=== PATIENT | female | born 1960 | race Caucasian/White ===

== ENCOUNTER 2016-07-05 18:44 | Emergency (ER) | payer BC ==
[2016-07-05] MEDS ORDERED: NS 0.9% 1000 ML* 1,000 ML IV ONE (19:47)
[2016-07-05 20:13] LABS: Hematocrit 43 % (35-47); Hemoglobin 13.8 g/dl (12.0-16.0); Mean Corpuscular HGB Conc 32 g/dl (31-36); Mean Corpuscular Hemoglobin 26 pg (27-31); Mean Corpuscular Volume 82 fL (80-97); Mean Platelet Volume 8 um3 (7.4-10.4); Red Blood Count 5.22 10^6/ul (4.0-5.4); Red Cell Distribution Width 15 % (10.5-15); White Blood Count 8.7 10^3/ul (3.5-10.8)
[2016-07-05 20:28] LABS: BUN/Creatinine Ratio 23.3 (8-20); Calcium 9.9 mg/dL (8.6-10.3); EGFR African American 132.1 (>60); EGFR Non-African American 102.7 (>60); Potassium 3.6 mmol/L (3.5-5.0)
[2016-07-05 22:00] LABS: Urine Bilirubin Negative (Negative); Urine Glucose 1+(50 mg/dL) (Negative); Urine Nitrite Negative (Negative)
--- NOTE | 2016-07-05 22:39 | ED ---
Falguni Elaine Claudia, scribed for Gavin Cano MD on 07/05/16 at 1947 . HPI Diabetic - HPI Summary HPI Summary: 56 year old female presents to the ED with low blood glucose levels. PT notes sudden onset at about 1800 pm today. Pt notes she was 2-3 hours into work when she began feeling lightheaded with some skin diaphoresis, stiff neck and VÁZQUEZ. Pt notes that she took her blood sugar at that time and recorded it as 66. Pt then ate some jello with little alleviation of her Sx. Pt then decided to come to the ED. Upon arrival to ED pt blood glucose was recorded at about 80 and pt notes that she is feeling improved upon arrival with only mild lightheadedness which is beginning to resolve. She notes that she ate a sandwich today around 1400 before going to work. Pt denies any recent changes to her DM Rx. - History Of Current Complaint Chief Complaint: EDDiabeticProb Time Seen by Provider: 07/05/16 19:39 Hx Obtained From: Patient Onset/Duration: Sudden Onset - 17:45, Still Present Timing: Constant Related History: DM II - Allergies/Home Medications Allergies/Adverse Reactions: Allergies Allergy/AdvReac Type Severity Reaction Status Date / Time No Known Allergies Allergy Verified 03/11/16 16:20 PMH/Surg Hx/FS Hx/Imm Hx Previously Healthy: Yes Endocrine/Hematology History: Reports: Hx Anticoagulant Therapy - 325mg asa daily, Hx Diabetes - niddm Cardiovascular History: Reports: Hx Hypertension Denies: Hx Pacemaker/ICD Respiratory History: Denies: Hx Asthma, Hx Chronic Obstructive Pulmonary Disease (COPD) History: Denies: Hx Dialysis, Hx Renal Disease Sensory History: Reports: Hx Contacts or Glasses Denies: Hx Hearing Aid Opthamlomology History: Reports: Hx Contacts or Glasses Neurological History: Reports: Other Neuro Impairments/Disorders - dizziness Denies: Hx Dementia, Hx Seizures Psychiatric History: Denies: Hx Panic Disorder, Hx Substance Abuse - Surgical History Surgery Procedure, Year, and Place: cardiac stents x2- APPROVED BY DR LYLES FOR THIS MRI OF BRAIN IN NORMAL MODE ON 03/22/16- PT HAS NO INFO ON THE STENTS, IF WE EVER NEED TO SCAN HER IN THE FUTURE WE NEED THE INFORMATION. PT BELIEVES THEY WERE DONE AT [facility] 7 OR 8 YRS AGO - Immunization History Date of Influenza Vaccine: 2014 Infectious Disease History: No Infectious Disease History: Denies: Hx Clostridium Difficile, Hx Hepatitis, Hx Human Immunodeficiency Virus (HIV), Hx Shingles, Hx Tuberculosis, Traveled Outside the [place] in Last 30 Days - Family History Known Family History: Positive: Cardiac Disease, Hypertension, Diabetes - Social History Occupation: Employed Full-time Lives: With Family Alcohol Use: None Substance Use Type: Reports: None Smoking Status (MU): Current Every Day Smoker Review of Systems Constitutional: Negative Eyes: Negative ENT: Negative Cardiovascular: Negative Respiratory: Negative Gastrointestinal: Negative Positive: no symptoms reported. Negative: burning, dysuria Musculoskeletal: Negative Skin: Negative Neurological: Other - lightheadedness Psychological: Normal All Other Systems Reviewed And Are Negative: Yes Physical Exam Triage Information Reviewed: Yes Vital Signs On Initial Exam: Initial Vitals Temp Pulse Resp BP Pulse Ox 98.0 F 90 18 165/84 98 07/05/16 18:54 07/05/16 18:54 07/05/16 18:54 07/05/16 18:54 07/05/16 18:54 Vital Signs Reviewed: Yes Appearance: Positive: Well-Appearing, No Pain Distress Skin: Positive: Warm, Skin Color Reflects Adequate Perfusion, Dry Head/Face: Positive: Normal Head/Face Inspection Eyes: Positive: Normal Respiratory/Lung Sounds: Positive: Clear to Auscultation, Breath Sounds Present Cardiovascular: Positive: RRR Abdomen Description: Positive: Nontender, Soft Musculoskeletal: Positive: Normal Neurological: Positive: Normal, Sensory/Motor Intact Psychiatric: Positive: Normal, Affect/Mood Appropriate Diagnostics - Vital Signs Vital Signs Temp Pulse Resp BP Pulse Ox 07/05/16 18:54 98.0 F 90 18 165/84 98 - Laboratory Lab Results: Lab Results 07/05/16 07/05/16 07/05/16 Range/Units 20:05 20:05 21:44 WBC 8.7 (3.5-10.8) 10^3/ul RBC 5.22 (4.0-5.4) 10^6/ul Hgb 13.8 (12.0-16.0) g/dl Hct 43 (35-47) % MCV 82 (80-97) fL MCH 26 L (27-31) pg MCHC 32 (31-36) g/dl RDW 15 (10.5-15) % Plt Count 306 (150-450) 10^3/ul MPV 8 (7.4-10.4) um3 Sodium 138 (133-145) mmol/L Potassium 3.6 (3.5-5.0) mmol/L Chloride 104 (101-111) mmol/L Carbon Dioxide 25 (22-32) mmol/L Anion Gap 9 (2-11) mmol/L BUN 14 (6-24) mg/dL Creatinine 0.60 (0.51-0.95) mg/dL Est GFR ( Amer) 132.1 (>60) Est GFR (Non-Af Amer) 102.7 (>60) BUN/Creatinine Ratio 23.3 H (8-20) Glucose 123 H (70-100) mg/dL Calcium 9.9 (8.6-10.3) mg/dL Urine Color Straw Urine Appearance Clear Urine pH 5.0 (5-9) Ur Specific Hutchins 1.011 (1.010-1.030) Urine Protein Negative (Negative) Urine Ketones Negative (Negative) Urine Blood Negative (Negative) Urine Nitrate Negative (Negative) Urine Bilirubin Negative (Negative) Urine Urobilinogen Negative (Negative) Ur Leukocyte Esterase Negative (Negative) Urine Glucose 1+(50 mg/dl) H (Negative) Result Diagrams: 07/05/16 20:05 07/05/16 20:05 Lab Statement: Any lab studies that have been ordered have been reviewed, and results considered in the medical decision making process. Diabetic Course/Dx - Diagnoses Differential Dx: Hypoglycemia, Sepsis Provider Diagnoses: Hypoglycemia Discharge - Discharge Plan Condition: Improved Disposition: HOME Patient Education Materials: Diabetic Hypoglycemia (ED) Referrals: Sandrine Meléndez MD [Primary Care Provider] - 3 Days The documentation as recorded by the Falguni rose Claudia accurately reflects the service I personally performed and the decisions made by , Gavin Cano MD.
[2016-07-05 23:17] VITALS: BP 159/75
== END 2016-07-05 22:40 | disposition home or self-care (01) ==
LOC: ED 18:44
DX: E11.649 Type 2 diabetes mellitus with hypoglycemia without coma (principal); Z79.01 Long term (current) use of anticoagulants; F17.210 Nicotine dependence, cigarettes, uncomplicated
CPT/HCPCS: 36415; 80048; 81003; 85027; 99283

== ENCOUNTER → 2017-03-04 08:03 | Emergency (ER) | payer BC ==
[~2017-03-04 08:03] MED LIST: Iodixanol* (CONTRAST) 320 MG/ML 100 ML SDV IV ONE; Iohexol 300* (CONTRAST) 10 ML SDV IV ONE; Metoclopramide IV* 5 MG/ML 2 ML VIAL IV ONE; Morphine INJ* 10 MG/ML 1 ML CARPUJECT IV ONE; NS 0.9% 1000 ML* 1,000 ML IV ONE
[2017-03-04 09:28] LABS: Hematocrit 46 % (35-47); Hemoglobin 15.4 g/dl (12.0-16.0); Mean Corpuscular HGB Conc 34 g/dl (31-36); Mean Corpuscular Hemoglobin 28 pg (27-31); Mean Corpuscular Volume 83 fL (80-97); Mean Platelet Volume 8 um3 (7.4-10.4); Red Cell Distribution Width 15 % (10.5-15); White Blood Count 6.4 10^3/ul (3.5-10.8)
--- NOTE | 2017-03-04 09:36 | RAD ---
INDICATION: Chest pain COMPARISON: March 21, 2016 TECHNIQUE: PA and lateral dual-energy views were obtained. FINDINGS: Bones/Soft Tissues: There are no acute bony findings. Cardiomediastinal: The cardiomediastinal silhouette is normal. Lungs: There are no infiltrates. Pleura: There are no pleural effusions. Other: None IMPRESSION: NO ACTIVE DISEASE.
[2017-03-04 09:48] LABS: Albumin 4.3 g/dL (3.2-5.2); C Reactive Protein 11.6 mg/L (< 5.00); Calcium 9.5 mg/dL (8.6-10.3); EGFR African American 145.5 (>60); EGFR Non-African American 113.1 (>60); Globulin 3.3 g/dL (2-4); Potassium 3.7 mmol/L (3.5-5.0); Total Bilirubin 0.5 mg/dL (0.2-1.0); Total Protein 7.6 g/dL (6.4-8.9)
[2017-03-04 11:24] LABS: Urine Bacteria Absent (Absent); Urine Bilirubin Negative (Negative); Urine Glucose 1+(50 mg/dL) (Negative); Urine Nitrite Negative (Negative)
--- NOTE | 2017-03-04 12:07 | RAD ---
INDICATION: Abdominal pain. COMPARISON: There are no prior studies available for comparison. TECHNIQUE: A CT scan of the abdomen and pelvis was performed without intravenous or and with oral contrast. Contiguous axial sections were obtained from the lung bases through the symphysis pubis. Images were reconstructed in the coronal and sagittal planes. FINDINGS: There is mild dependent bilateral lower lobe subsegmental atelectasis. No pleural effusion is present. The liver and spleen are normal in size. The liver is decreased in attenuation most consistent with fatty infiltration. No significant focal abnormality is seen on this noncontrast study. No calcified gallstones are present. The pancreas appears to be within normal limits. The adrenal glands and kidneys are normal in size. No renal calculi or hydronephrosis is seen. The abdominal aorta is normal in caliber. There is moderate calcific plaque present. Incidental note is made of a retroaortic left renal vein. No significant enlarged retroperitoneal lymph nodes are seen. The stomach, small and large bowel appear nondistended. The appendix is within normal limits. There is no evidence for diverticulitis or colitis. The uterus is anteverted and normal in size. No free intraperitoneal air or fluid is seen. No significant focal osseous abnormality is seen. IMPRESSION: 1. NO EVIDENCE FOR ACUTE FINDING OR CAUSE FOR THE PATIENT'S ABDOMINAL PAIN IS SEEN. 2. HEPATIC STEATOSIS.
[2017-03-04 13:07] VITALS: BP 142/61
--- NOTE | 2017-03-04 13:17 | ED ---
Niles Elaine Angela, scribed for Rakesh Villalpando MD on 03/04/17 at 0904 . Abdominal Pain/Female - HPI Summary HPI Summary: This pt is a 57 y/o female [place] [facility] [place] [facility] since this morning at 0500. Pt's pain did not wake up pt from sleep. She notes associated nausea with dry heaving and heart burn in the lower abd. Pt rates her pain 8 out of 10 in severity. Pt describes her pain as "light pain" and is unable to describe more. She notes that this is the first time ever having this pain. Pt denies vomiting, chest pain, SOB, diaphoresis, diarrhea, change in bowel movements, dysuria, hematuria, bloody stools, melena, fever, chills. Pt is a current smoker but denies alcohol use. PMHx: vertigo, diabetes, HTN. Pt is currently on Plavix. - History of Current Complaint Chief Complaint: EDAbdPain Stated Complaint: ABD PAIN Time Seen by Provider: 03/04/17 08:55 Hx Obtained From: Patient Onset/Duration: Lasting Hours Timing: Hours Pain Intensity: 8 Pain Scale Used: 0-10 Numeric Location: Diffuse Radiates: No Character: Other: - "light pain" Aggravating Factor(s): Nothing Alleviating Factor(s): Nothing Associated Signs and Symptoms: Positive: Nausea. Negative: Diaphoresis, Fever, Chest Pain, Back Pain, Constipation, Blood in Stool, Urinary Symptoms, Vomiting , Diarrhea Allergies/Adverse Reactions: Allergies Allergy/AdvReac Type Severity Reaction Status Date / Time Pregabalin [From Lyrica] Allergy Intermediate Tingling Verified 03/04/17 10:32 PMH/Surg Hx/FS Hx/Imm Hx Endocrine/Hematology History: Reports: Hx Anticoagulant Therapy - 325mg asa daily, Hx Diabetes - niddm Cardiovascular History: Reports: Hx Hypertension, Hx Myocardial Infarction - with 2 cardiac stents Denies: Hx Pacemaker/ICD Respiratory History: Denies: Hx Asthma, Hx Chronic Obstructive Pulmonary Disease (COPD) History: Denies: Hx Dialysis, Hx Renal Disease Sensory History: Reports: Hx Contacts or Glasses Denies: Hx Hearing Aid Opthamlomology History: Reports: Hx Contacts or Glasses Neurological History: Reports: Other Neuro Impairments/Disorders - dizziness Denies: Hx Dementia, Hx Seizures Psychiatric History: Denies: Hx Panic Disorder, Hx Substance Abuse - Surgical History Surgery Procedure, Year, and Place: cardiac stents x2- APPROVED BY DR LYLES FOR THIS MRI OF BRAIN IN NORMAL MODE ON 03/22/16- PT HAS NO INFO ON THE STENTS, IF WE EVER NEED TO SCAN HER IN THE FUTURE WE NEED THE INFORMATION. 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 Negative: Vomiting, Diarrhea Negative: burning, dysuria, hematuria, other - bloody stools, melena Neurological: Negative All Other Systems Reviewed And Are Negative: Yes Physical Exam Triage Information Reviewed: Yes Vital Signs On Initial Exam: Initial Vitals Temp Pulse Resp BP Pulse Ox 97.8 F 107 16 184/80 96 03/04/17 08:05 03/04/17 08:05 03/04/17 08:05 03/04/17 08:05 03/04/17 08:05 Vital Signs Reviewed: Yes Appearance: Positive: Well-Appearing Skin: Positive: Warm, Skin Color Reflects Adequate Perfusion Head/Face: Positive: Normal Head/Face Inspection Eyes: Positive: EOMI ENT: Positive: Normal ENT inspection Neck: Positive: Nontender Respiratory/Lung Sounds: Positive: Clear to Auscultation, Breath Sounds Present Cardiovascular: Positive: RRR. Negative: Murmur Abdomen Description: Positive: Other: - tender in left upper quadrant and epigastric area. Musculoskeletal: Positive: Strength/ROM Intact Neurological: Positive: Sensory/Motor Intact, Alert, Oriented to Person Place, Time, CN Intact II-III Psychiatric: Positive: Normal - Pollock Coma Scale Best Eye Response: 4 - Spontaneous Best Motor Response: 6 - Obeys Commands Best Verbal Response: 5 - Oriented Diagnostics - Vital Signs Vital Signs Temp Pulse Resp BP Pulse Ox 03/04/17 08:05 97.8 F 107 16 184/80 96 - Laboratory Result Diagrams: 03/04/17 09:10 03/04/17 09:10 Lab Statement: Any lab studies that have been ordered have been reviewed, and results considered in the medical decision making process. - Radiology Chest XR Xray Interpretation: No Acute Changes - IMPRESSION: No active disease. ED physician has reviewed this radiology report and agrees. Radiology Interpretation Completed By: Radiologist - CT CT abdomen/pelvis CT Interpretation: No Acute Changes - IMPRESSION: 1. No evidence for acute finding or cause for the patient's abdominal pain is seen. 2. Hepatic steatosis. ED physician has reviewed this radiology report and agrees. CT Interpretation Completed By: Radiologist - EKG 1025 Cardiac Rate: NL - 69 bpm EKG Rhythm: Sinus Rhythm EKG Interpretation: Abnormal inferior Q waves. Minimal ST elevation, anterior leads. No STEMI. Re-Evaluation - Re-Evaluation First Eval Re-Evaluation Time: 12:57 Change: Improved Comment: The patient no longer has tenderness to palpation in the epigastric and left upper abdomen. She is hungry and would like to go home. she has no pain at all. Abdominal Pain Fem Course/Dx - Course Course Of Treatment: Pt is a 57 y/o female who presents with abd pain since this morning at 0500. Pt's pain did not wake up pt from sleep. She notes associated nausea with dry heaving and heart burn in the lower abd. Bloodwork, chest XR, CT abdomen/pelvis, and EKG were obtained. In the ED course, pt was given IV fluids, Reglan, and morphine. Chest XR is negative. CT abdomen/pelvis shows 1. No evidence for acute finding or cause for the patient's abdominal pain is seen. 2. Hepatic steatosis. - Diagnoses Provider Diagnoses: Abdominal pain, Hypertension Discharge - Discharge Plan Condition: Good Disposition: HOME Patient Education Materials: Abdominal Pain (ED), Hypertension (ED) Referrals: Sandrine Meléndez MD [Primary Care Provider] - The documentation as recorded by the Niles rose Angela accurately reflects the service I personally performed and the decisions made by , Rakesh Villalpando MD.
== END | disposition home or self-care (01) ==
LOC: ED 08:03
DX: R10.9 Unspecified abdominal pain (principal); I10 Essential (primary) hypertension; N28.89 Other specified disorders of kidney and ureter; R11.0 Nausea; F17.210 Nicotine dependence, cigarettes, uncomplicated
CPT/HCPCS: 36415; 71020; 74176; 80053; 81003; 81015; 83605; 83690; 84484; 84702; 85025; 86140; 93005; 99282; J2270; J2765

== ENCOUNTER 2017-04-28 15:22 | Emergency (ER) | payer BC ==
--- NOTE | 2017-04-28 18:11 | RAD ---
INDICATION: Hypertension COMPARISON: March 04, 2017 TECHNIQUE: An AP portable view obtained at 1800 hours is submitted. FINDINGS: Bones/Soft Tissues: There are no acute bony findings. Cardiomediastinal: The cardiomediastinal silhouette is normal. Lungs: There are no infiltrates. Pleura: There are no pleural effusions. Other: None IMPRESSION: NO ACTIVE DISEASE.
[2017-04-28 18:25] LABS: Hematocrit 44 % (35-47); Hemoglobin 14.7 g/dl (12.0-16.0); Mean Corpuscular HGB Conc 33 g/dl (31-36); Mean Corpuscular Hemoglobin 28 pg (27-31); Mean Corpuscular Volume 83 fL (80-97); Mean Platelet Volume 8 um3 (7.4-10.4); Red Blood Count 5.32 10^6/ul (4.0-5.4); Red Cell Distribution Width 15 % (10.5-15); White Blood Count 6.9 10^3/ul (3.5-10.8)
[2017-04-28 18:39] LABS: Albumin 4.2 g/dL (3.2-5.2); BUN/Creatinine Ratio 24.6 (8-20); Calcium 10.2 mg/dL (8.6-10.3); EGFR African American 139.6 (>60); EGFR Non-African American 108.6 (>60); Globulin 2.9 g/dL (2-4); Magnesium 2.1 mg/dL (1.9-2.7); Potassium 3.9 mmol/L (3.5-5.0); Total Bilirubin 0.5 mg/dL (0.2-1.0); Total Protein 7.1 g/dL (6.4-8.9)
[2017-04-28 18:41] LABS: Troponin I 0.01 ng/mL (<0.04)
[2017-04-28 19:19] LABS: TSH (Thyroid Stimulating Horm) 4.73 mcIU/mL (0.34-5.60)
[2017-04-28] MEDS ORDERED: Meclizine TAB* 12.5 MG PO ONE ×2 (19:27→22:19)
[2017-04-28] MEDS ORDERED: NS 0.9% 1000 ML* 1,000 ML IV ONE (19:27)
--- NOTE | 2017-04-28 20:31 | RAD ---
INDICATION: Dizziness COMPARISON: None TECHNIQUE: Noncontrast axial source images were acquired from the skull base to the vertex. FINDINGS: Ventricles/sulci: The ventricles and cisterns are normal in size and configuration for age. Brain parenchyma: There is no focal parenchymal finding, evidence of intracranial mass, or intracranial mass effect. Intracranial hemorrhage:None. Extra-axial spaces: There are no abnormal extra axial fluid collections or evidence of extra-axial mass. Calvarium: There is no calvarial fracture or other calvarial abnormality. Scalp: There is no evidence of scalp or extracalvarial soft tissue abnormality. Paranasal sinuses/mastoid: The paranasal sinuses and mastoid air cells are clear. Other: None. IMPRESSION: NEGATIVE EXAMINATION
--- NOTE | 2017-04-28 22:28 | ED ---
Teo Elaine Benjamin, scribed for Aditya Mckeon MD on 04/28/17 at 1927 . Dizziness - HPI Summary HPI Summary: 57yo female who has been feeling off balance and nauseous over 8 weeks presents today has her symptoms worsened the past 3 days. Pts BP has also been high last 3 days. Pt reports being off balance and nauseous, in similar fashion last year. Pt has been seen multiple times, with multiple doctors trying to figure her dz. Pt had a MRI taken 1 month ago at [place]. Pt states that her. MRI came back negative. Pt denies any pain. No weakness or numbness anywhere. - History Of Current Complaint Chief Complaint: EDHypertension Stated Complaint: HIGH BLOOD PRESSURE Time Seen by Provider: 04/28/17 18:00 Hx Obtained From: Patient, Family/[employer] Liaison Officer - Onset/Duration: Still Present Timing: Weeks - 8 weeks Severity Initially: Mild Severity Currently: Mild Character: Dizzy - off balance Aggravating Factor(s): Nothing Alleviating Factor(s): Nothing Associated Signs And Symptoms: Positive: Nausea. Negative: Visual Changes Related History: Similar Episode/Dx as - last year - Risk Factors Cardiac Risk Factors: Hypertension - Allergies/Home Medications Allergies/Adverse Reactions: Allergies Allergy/AdvReac Type Severity Reaction Status Date / Time Pregabalin [From Lyrica] Allergy Intermediate Tingling Verified 04/28/17 15:30 PMH/Surg Hx/FS Hx/Imm Hx Endocrine/Hematology History: Reports: Hx Anticoagulant Therapy - 325mg asa daily, Hx Diabetes - niddm Cardiovascular History: Reports: Hx Hypertension, Hx Myocardial Infarction - with 2 cardiac stents Denies: Hx Pacemaker/ICD Respiratory History: Denies: Hx Asthma, Hx Chronic Obstructive Pulmonary Disease (COPD) History: Denies: Hx Dialysis, Hx Renal Disease Sensory History: Reports: Hx Contacts or Glasses Denies: Hx Hearing Aid Opthamlomology History: Reports: Hx Contacts or Glasses Neurological History: Reports: Other Neuro Impairments/Disorders - dizziness Denies: Hx Dementia, Hx Seizures Psychiatric History: Denies: Hx Panic Disorder, Hx Substance Abuse - Surgical History Surgery Procedure, Year, and Place: cardiac stents x2- APPROVED BY DR LYLES FOR THIS MRI OF BRAIN IN NORMAL MODE ON 03/22/16- PT HAS NO INFO ON THE STENTS, IF WE EVER NEED TO SCAN HER IN THE FUTURE WE NEED THE INFORMATION. PT BELIEVES THEY WERE DONE AT [facility] 7 OR 8 YRS AGO - Immunization History Date of Influenza Vaccine: 2013 Infectious Disease History: No Infectious Disease History: Denies: Hx Clostridium Difficile, Hx Hepatitis, Hx Human Immunodeficiency Virus (HIV), Hx Shingles, Hx Tuberculosis, Traveled Outside the [place] in Last 30 Days - Family History Known Family History: Positive: Cardiac Disease, Hypertension, Diabetes, Other - sister: breast [place] - Social History Alcohol Use: None Substance Use Type: Reports: None Smoking Status (MU): Current Every Day Smoker Review of Systems Constitutional: Negative Eyes: Negative ENT: Negative Cardiovascular: Negative Respiratory: Negative Positive: Nausea. Negative: Abdominal Pain Genitourinary: Negative Musculoskeletal: Negative Skin: Negative Neurological: Other - off balance dizziness Negative: Headache Psychological: Normal All Other Systems Reviewed And Are Negative: Yes Physical Exam Triage Information Reviewed: Yes Vital Signs On Initial Exam: Initial Vitals Temp Pulse Resp BP Pulse Ox 98.6 F 98 20 204/85 98 04/28/17 15:31 04/28/17 15:31 04/28/17 15:31 04/28/17 15:31 04/28/17 15:31 Vital Signs Reviewed: Yes Appearance: Positive: Well-Appearing, No Pain Distress, Well-Nourished Skin: Positive: Warm, Skin Color Reflects Adequate Perfusion, Dry Head/Face: Positive: Normal Head/Face Inspection Eyes: Positive: SAW, Other: - Left nystagmus. None on the right. ENT: Positive: Normal ENT inspection Neck: Positive: Supple, Nontender Respiratory/Lung Sounds: Positive: Clear to Auscultation, Breath Sounds Present Cardiovascular: Positive: RRR Abdomen Description: Positive: Nontender, Soft Bowel Sounds: Positive: Present Musculoskeletal: Positive: Strength/ROM Intact Neurological: Positive: Sensory/Motor Intact, Alert, Oriented to Person Place, Time, Other - Pt felt dizzy when sitting up, also with eye movement. - [place] Coma Scale Coma Scale Total: 15 Diagnostics - Vital Signs Vital Signs Temp Pulse Resp BP Pulse Ox 04/28/17 19:13 72 17 126/64 97 04/28/17 18:00 66 16 133/63 96 04/28/17 17:34 77 95 04/28/17 17:33 172/79 04/28/17 17:19 98 F 64 16 159/64 98 04/28/17 15:31 98.6 F 98 20 204/85 98 - Laboratory Lab Results: Lab Results 04/28/17 04/28/17 04/28/17 Range/Units 18:16 18:16 18:16 WBC 6.9 (3.5-10.8) 10^3/ul RBC 5.32 (4.0-5.4) 10^6/ul Hgb 14.7 (12.0-16.0) g/dl Hct 44 (35-47) % MCV 83 (80-97) fL MCH 28 (27-31) pg MCHC 33 (31-36) g/dl RDW 15 (10.5-15) % Plt Count 314 (150-450) 10^3/ul MPV 8 (7.4-10.4) um3 Neut % (Auto) 52.9 (38-83) % Lymph % (Auto) 35.6 (25-47) % Lake % (Auto) 7.4 (1-9) % Eos % (Auto) 2.7 (0-6) % Baso % (Auto) 1.4 (0-2) % Absolute Neuts (auto) 3.6 (1.5-7.7) 10^3/ul Absolute Lymphs (auto) 2.4 (1.0-4.8) 10^3/ul Absolute Monos (auto) 0.5 (0-0.8) 10^3/ul Absolute Eos (auto) 0.2 (0-0.6) 10^3/ul Absolute Basos (auto) 0.1 (0-0.2) 10^3/ul Absolute Nucleated RBC 0 10^3/ul Nucleated RBC % 0.1 INR (Anticoag Therapy) 0.99 (0.77-1.02) APTT 32.9 (26.0-36.3) seconds Sodium (133-145) mmol/L Potassium (3.5-5.0) mmol/L Chloride (101-111) mmol/L Carbon Dioxide (22-32) mmol/L Anion Gap (2-11) mmol/L BUN (6-24) mg/dL Creatinine (0.51-0.95) mg/dL Est GFR ( Amer) (>60) Est GFR (Non-Af Amer) (>60) BUN/Creatinine Ratio (8-20) Glucose (70-100) mg/dL Calcium (8.6-10.3) mg/dL Magnesium (1.9-2.7) mg/dL Total Bilirubin (0.2-1.0) mg/dL AST (13-39) U/L ALT (7-52) U/L Alkaline Phosphatase (34-104) U/L Troponin I (<0.04) ng/mL B-Natriuretic Peptide 84 ( - 100) pg/mL Total Protein (6.4-8.9) g/dL Albumin (3.2-5.2) g/dL Globulin (2-4) g/dL Albumin/Globulin Ratio (1-3) TSH (0.34-5.60) mcIU/mL 04/28/ Range/Units 18:16 WBC (3.5-10.8) 10^3/ul RBC (4.0-5.4) 10^6/ul Hgb (12.0-16.0) g/dl Hct (35-47) % MCV (80-97) fL MCH (27-31) pg MCHC (31-36) g/dl RDW (10.5-15) % Plt Count (150-450) 10^3/ul MPV (7.4-10.4) um3 Neut % (Auto) (38-83) % Lymph % (Auto) (25-47) % Lake % (Auto) (1-9) % Eos % (Auto) (0-6) % Baso % (Auto) (0-2) % Absolute Neuts (auto) (1.5-7.7) 10^3/ul Absolute Lymphs (auto) (1.0-4.8) 10^3/ul Absolute Monos (auto) (0-0.8) 10^3/ul Absolute Eos (auto) (0-0.6) 10^3/ul Absolute Basos (auto) (0-0.2) 10^3/ul Absolute Nucleated RBC 10^3/ul Nucleated RBC % INR (Anticoag Therapy) (0.77-1.02) APTT (26.0-36.3) seconds Sodium 137 (133-145) mmol/L Potassium 3.9 (3.5-5.0) mmol/L Chloride 103 (101-111) mmol/L Carbon Dioxide 26 (22-32) mmol/L Anion Gap 8 (2-11) mmol/L BUN 14 (6-24) mg/dL Creatinine 0.57 (0.51-0.95) mg/dL Est GFR ( Amer) 139.6 (>60) Est GFR (Non-Af Amer) 108.6 (>60) BUN/Creatinine Ratio 24.6 H (8-20) Glucose 141 H (70-100) mg/dL Calcium 10.2 (8.6-10.3) mg/dL Magnesium 2.1 (1.9-2.7) mg/dL Total Bilirubin 0.50 (0.2-1.0) mg/dL AST 14 (13-39) U/L ALT 14 (7-52) U/L Alkaline Phosphatase 67 (34-104) U/L Troponin I 0.01 (<0.04) ng/mL B-Natriuretic Peptide ( - 100) pg/mL Total Protein 7.1 (6.4-8.9) g/dL Albumin 4.2 (3.2-5.2) g/dL Globulin 2.9 (2-4) g/dL Albumin/Globulin Ratio 1.4 (1-3) TSH 4.73 (0.34-5.60) mcIU/mL Result Diagrams: 04/28/17 18:16 04/28/17 18:16 Lab Statement: Any lab studies that have been ordered have been reviewed, and results considered in the medical decision making process. - Radiology CXR Xray Interpretation: No Acute Changes Radiology Interpretation Completed By: Radiologist - ED physician has reviewed this radiology report and agrees. - CT Brain CT CT Interpretation: No Acute Changes CT Interpretation Completed By: Radiologist - ED physician has reviewed this radiology report and agrees. - EKG 1800. EKG Rhythm: Sinus Rhythm - 62bpm Ectopy: None Dizzy Course/Dx - Course Course Of Treatment: BP noted and advised to follow up with PCP. Allergies noted. Medications reviewed. SX STARTED IN . SHE HAD SIMILAR SX LAST FALL. SHE AND HER HEAT WITH A PELLET STOVE WHICH HAS BEEN CHECKED FOR SAFETY. PATIENT REPORTS HAVING A MRI WITHIN THE LAST MONTH FOR THESE SX. SHE HAS AN APPOINTMENT TOMORROW WITH HER PMD. SOME IMPROVEMENT IN ED AFTER MECLIZINE. F/U PMD TOMORROW SCHEDULED; RETURN IF WORSE. - Diagnoses Provider Diagnoses: Dizziness Discharge - Discharge Plan Condition: Stable Disposition: HOME Prescriptions: Meclizine HCl [Meclizine 25] 25 mg PO Q6H PRN #15 tab PRN Reason: Dizziness Patient Education Materials: Dizziness (ED) Referrals: Sandrine Meléndez MD [Primary Care Provider] - Additional Instructions: FOLLOW UP WITH YOUR DOCTOR. RETURN TO THE EMERGENCY DEPARTMENT FOR ANY WORSENING OF YOUR CONDITION; WEAKNESS , NUMBNESS, WORSENING DIZZINESS, YOU FEEL ILL OR QUESTIONS OR CONCERNS. The documentation as recorded by the Teo rose Benjamin accurately reflects the service I personally performed and the decisions made by me, Aditya Mckeon MD.
[2017-04-28 22:41] VITALS: BP 100/55
== END 2017-04-28 22:51 | disposition home or self-care (01) ==
LOC: ED 15:22
DX: R42 Dizziness and giddiness (principal); R11.0 Nausea; Z79.01 Long term (current) use of anticoagulants; Z86.79 Personal history of other diseases of the circulatory system; F17.210 Nicotine dependence, cigarettes, uncomplicated
CPT/HCPCS: 36415; 70450; 71010; 80053; 83735; 83880; 84443; 84484; 85025; 85610; 85730; 93005; 99284; A9270-GY

== ENCOUNTER 2018-03-31 18:11 | Emergency (ER) | payer BC ==
[2018-03-31 19:08] VITALS: BP 153/80
[2018-03-31] MEDS ORDERED: Amoxicillin PO (*) 500 MG CAP PO ONE (21:20)
[2018-03-31] MEDS ORDERED: HYDROcodone/ACETAMIN 5-325 MG* 1 TAB PO ONE (21:20)
[2018-03-31] MEDS ORDERED: Naproxen TAB* 250 MG PO ONE (21:20)
--- NOTE | 2018-03-31 21:25 | UC ---
[facility] Dental HPI - HPI Summary HPI Summary: 58-year-old female presents with 3 day history of right upper dental pain. Associated with some mild right sided facial swelling. Denies fever, chills, trismus, dysphagia, or discharge. - History of Current Complaint Chief Complaint: UCDentalProblem Stated Complaint: TOOTH ACHE Time Seen by Provider: 03/31/18 20:13 Hx Obtained From: Patient Hx Last Menstrual Period: [employer] Onset/Duration: Gradual Onset, Lasting Days - 3 Severity: Moderate Pain Intensity: 8 Aggravating Factor(s): Chewing Alleviating Factor(s): Nothing - Allergies/Home Medications Allergies/Adverse Reactions: Allergies Allergy/AdvReac Type Severity Reaction Status Date / Time pregabalin [From Lyrica] Allergy Tingling Verified 03/31/18 19:09 Home Medications: Home Medications Aspirin 81 mg CHEW TAB* 81 mg PO DAILY 03/31/18 [History Confirmed 03/31/18] Hydrochlorothiazide TAB* [Hydrodiuril TAB*] 25 mg PO DAILY 03/31/18 [History Confirmed 03/31/18] Metoprolol Tartrate TAB* [Lopressor TAB*] 100 mg PO BID 03/31/18 [History Confirmed 03/31/18] Rosuvastatin (NF) [Crestor (NF)] 40 mg PO BEDTIME 03/31/18 [History Confirmed ] glyBURIDE TAB* [Diabeta TAB*] 10 mg PO 0800,1700 03/31/18 [History Confirmed 07/17] PMH/Surg Hx/FS Hx/Imm Hx Endocrine History: Diabetes, Dyslipidemia Cardiovascular History: Cardiac Disease, Hypertension Other History Of: Anticoagulant Therapy - 325mg asa daily - Surgical History Surgical History: Yes Surgery Procedure, Year, and Place: cardiac stents x2- APPROVED BY DR LYLES FOR THIS MRI OF BRAIN IN NORMAL MODE ON 03/22/16- PT HAS NO INFO ON THE STENTS, IF WE EVER NEED TO SCAN HER IN THE FUTURE WE NEED THE INFORMATION. PT BELIEVES THEY WERE DONE AT [facility] 7 OR 8 YRS AGO - Family History Known Family History: Positive: Cardiac Disease, Hypertension, Diabetes, Other - sister: breast [place] - Social History Occupation: Employed Full-time Lives: With Family Alcohol Use: None Substance Use Type: None Smoking Status (MU): Heavy Every Day Tobacco Smoker Household Exposure Type: Cigarettes - Immunization History Most Recent Influenza Vaccination: 2014 Most Recent Tetanus Shot: Unknown Most Recent Pneumonia Vaccination: Unknown Review of Systems Constitutional: Negative Skin: Negative ENT: Dental Pain Respiratory: Negative Cardiovascular: Negative Is Patient Immunocompromised?: No All Other Systems Reviewed And Are Negative: Yes Physical Exam Triage Information Reviewed: Yes Appearance: Ill-Appearing - Chronically, Pain Distress - Mild discomfort, holding right side of face, Obese Vital Signs: Initial Vital Signs Temp 98.3 F 03/31/18 19:00 Pulse 80 03/31/18 19:00 Resp 16 03/31/18 19:00 BP 153/80 03/31/18 19:00 Pulse Ox 98 03/31/18 19:00 ENT: Positive: Pharynx normal, Dental tenderness - #3, Uvula midline Dental: Positive: Gross Decay/Caries @ - throughout, Other: - Multiple missing teeth Neck: Positive: Supple, Nontender, No Lymphadenopathy Respiratory: Positive: Normal breath sounds, No respiratory distress Cardiovascular: Positive: RRR, No Murmur Neurological: Positive: Alert Skin Exam: Normal Dental Complaint Course/Dx - Course Course Of Treatment: 58 year old female with 3 day history of right upper dental pain. Afebrile. Exam revealed significant dental decay to #3 right upper molar. No obvious abscess. Mild right sided facial swelling. Will start amoxicillin 500 mg TID x 10 days. First dose given in clinic. She was given a naproxen and [place] in clinic for pain and provided a prescription for naproxen for pain management at home. She is to schedule an appointment with dentist at next available appointment. Warning symptoms reviewed. Verbalizes understanding and agrees with POC. She is discharged home with spouse who is driving. - Differential Dx/Diagnosis Differential Diagnosis/Dx: Dental Abscess, Dental Caries, Gingivitis, Odontogenic Pain, Peridontic Disease Provider Diagnoses: Dental pain Discharge - Sign-Out/Discharge Documenting (check all that apply): Patient Departure All imaging exams completed and their final reports reviewed: No Studies - Discharge Plan Condition: Stable Disposition: HOME Prescriptions: Amoxicillin PO (*) [Amoxicillin 500 MG CAP*] 500 mg PO TID #30 cap Naproxen [Naproxen 500 mg tab] 500 mg PO Q12HR #30 tablet Patient Education Materials: Toothache (ED) Referrals: Sandrine Meléndez MD [Primary Care Provider] - Additional Instructions: Start amoxicillin 500 mg three times a day for 10 days. Take naproxen 1 tab every 12 hours as needed for pain. Use a salt water rinse after every time you eat and at bedtime to remove any debris. Apply ice to the affected side of your face for 15-20 minutes 3-4 times a day to help with any swelling. It is important that you make an appointment with a dentist at the next available appointment. Seek immediate medical attention if you develop fever greater than 100.5 F, are unable to open your mouth, have difficulty swallowing, difficulty breathing or any worsening of symptoms. - Billing Disposition and Condition Condition: STABLE Disposition: Home
== END 2018-03-31 21:39 | disposition home or self-care (01) ==
LOC: UCEAST 18:11
DX: K08.89 Other specified disorders of teeth and supporting structures (principal); K02.9 Dental caries, unspecified; R22.0 Localized swelling, mass and lump, head; E11.9 Type 2 diabetes mellitus without complications; E78.5 Hyperlipidemia, unspecified; F17.210 Nicotine dependence, cigarettes, uncomplicated; I10 Essential (primary) hypertension; Z79.899 Other long term (current) drug therapy; Z79.01 Long term (current) use of anticoagulants; Z79.82 Long term (current) use of aspirin; Z88.8 Allergy status to other drugs, medicaments and biological substances; Z79.84 Long term (current) use of oral hypoglycemic drugs; Z95.818 Presence of other cardiac implants and grafts
CPT/HCPCS: 99212; A9270-GY; G0463

== ENCOUNTER 2018-04-15 03:43 | Emergency (ER) | payer BC ==
[2018-04-15] MEDS ORDERED: Penicillin VK TAB* 250 MG PO ONE (03:58)
--- NOTE | 2018-04-15 04:06 | ED ---
Throat Pain/Nasal Congestion - HPI Summary HPI Summary: This patient is a 58 year old presenting to [facility] with a chief complaint of dental pain [employer]PER[employer]ARN[employer]. The pain is on the lower right side of her jaw. The patient states she does not see a dentist and does not know how to find one. - History of Current Complaint Chief Complaint: EDDentalPain Time Seen by Provider: 04/15/18 03:52 Hx Obtained From: Patient - Allergies/Home Medications Allergies/Adverse Reactions: Allergies Allergy/AdvReac Type Severity Reaction Status Date / Time pregabalin [From Lyrica] Allergy Tingling Verified 04/15/18 03:50 PMH/Surg Hx/FS Hx/Imm Hx Endocrine/Hematology History: Reports: Hx Anticoagulant Therapy - 325mg asa daily, Hx Diabetes - DM II Cardiovascular History: Reports: Hx Hypertension, Hx Myocardial Infarction - with 2 cardiac stents Denies: Hx Pacemaker/ICD Respiratory History: Denies: Hx Asthma, Hx Chronic Obstructive Pulmonary Disease (COPD) History: Denies: Hx Dialysis, Hx Renal Disease Sensory History: Reports: Hx Contacts or Glasses Denies: Hx Hearing Aid Opthamlomology History: Reports: Hx Contacts or Glasses Neurological History: Reports: Other Neuro Impairments/Disorders - dizziness Denies: Hx Dementia, Hx Seizures Psychiatric History: Denies: Hx Panic Disorder, Hx Substance Abuse - Cancer History Cancer Type, Location and Year: breast, currently - Surgical History Surgery Procedure, Year, and Place: cardiac stents x2- APPROVED BY DR LYLES FOR THIS MRI OF BRAIN IN NORMAL MODE ON 03/22/16- PT HAS NO INFO ON THE STENTS, IF WE EVER NEED TO SCAN HER IN THE FUTURE WE NEED THE INFORMATION. PT BELIEVES THEY WERE DONE AT [facility] 7 OR 8 YRS AGO - Immunization History Date of Influenza Vaccine: 2013 Infectious Disease History: No Infectious Disease History: Denies: Hx Clostridium Difficile, Hx Hepatitis, Hx Human Immunodeficiency Virus (HIV), Hx Shingles, Hx Tuberculosis, Traveled Outside the [place] in Last 30 Days - Family History Known Family History: Positive: Cardiac Disease, Hypertension, Diabetes, Other - sister: breast [place] - Social History Alcohol Use: None Substance Use Type: Reports: None Smoking Status (MU): Heavy Every Day Tobacco Smoker Review of Systems All Other Systems Reviewed And Are Negative: No Physical Exam - Summary Physical Exam Summary: Appearance: Well-appearing, Well-nourished, lying in bed comfortable Skin: Warm, dry, no obvious rash Eyes: sclera anicteric, no conjunctival pallor ENT: mucous membranes moist. No swelling. Poor dentition. Few teeth remaining. Neck: deferred Respiratory: No signs of respiratory distress Cardiovascular: Appears well perfused, pulses are nml Abdomen: deferred Musculoskeletal: Moving all 4 extremities without obvious discomfort Neurological: Awake and alert, mentation is normal, speech is fluent and appropriate Psychiatric: affect is normal, does not appear anxious or depressed Triage Information Reviewed: Yes Vital Signs On Initial Exam: Initial Vitals Temp Pulse Resp BP Pulse Ox 97.3 F 102 16 175/95 96 04/15/18 03:47 04/15/18 03:47 04/15/18 03:47 04/15/18 03:47 04/15/18 03:47 Vital Signs Reviewed: Yes Diagnostics - Vital Signs Vital Signs Temp Pulse Resp BP Pulse Ox 04/15/18 03:47 97.3 F 102 16 175/95 96 - Laboratory Lab Statement: Any lab studies that have been ordered have been reviewed, and results considered in the medical decision making process. EENT Course/Dx - Diagnoses Provider Diagnoses: Dental abscess Discharge - Sign-Out/Discharge Documenting (check all that apply): Patient Departure - Discharge Plan Condition: Good Disposition: HOME Prescriptions: Penicillin VK TAB* [Penicillin VK 250 mg Tab*] 500 mg PO QID #40 tab Patient Education Materials: Dental Abscess (ED) Referrals: Sandrine Meléndez MD [Primary Care Provider] - Additional Instructions: The antibiotic will tamp down the infection but you really need to see a dentist to have this taken care of definitively. - Billing Disposition and Condition Condition: GOOD Disposition: Home - Attestation Statements Document Initiated by Karey: Yes Documenting Scribe: Honorio Petit Provider For Whom Karey is Documenting (Include Credential): Goldy Sidhu MD Scribe Attestation: I, Honorio Petit, alonzoed for Goldy Sidhu MD on 04/24/18 at 0057. Scribe Documentation Reviewed: Yes Provider Attestation: The documentation as recorded by the Honorio rose accurately reflects the service I personally performed and the decisions made by me, Goldy Sidhu MD
[2018-04-15 04:08] VITALS: BP 0/0
== END 2018-04-15 04:07 | disposition home or self-care (01) ==
LOC: ED 03:43
DX: K08.89 Other specified disorders of teeth and supporting structures (principal); C50.919 Malignant neoplasm of unspecified site of unspecified female breast; I25.2 Old myocardial infarction; I10 Essential (primary) hypertension; Z95.5 Presence of coronary angioplasty implant and graft; Z79.82 Long term (current) use of aspirin; Z88.8 Allergy status to other drugs, medicaments and biological substances; F17.200 Nicotine dependence, unspecified, uncomplicated
CPT/HCPCS: 99282; A9270-GY

== ENCOUNTER 2018-09-05 11:33 | Emergency (ER) | payer BC ==
[2018-09-05 11:42] VITALS: BP 148/79
--- NOTE | 2018-09-05 13:09 | UC ---
Throat Pain/Nasal Jesse HPI - HPI Summary HPI Summary: 58 year old female presents with 1 week history of general malaise, chills, nasal congestion, sore throat, and a productive cough. States she was seen by her PCP 4 days ago and diagnosed with a viral URI but states symptoms are progressively getting worse. Denies ear pain, dysphagia , chest pain, SOB, abdominal pain, N/V/D. 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 Intensity: 0 - Allergies/Home Medications Allergies/Adverse Reactions: Allergies Allergy/AdvReac Type Severity Reaction Status Date / Time pregabalin [From Lyrica] Allergy Tingling Verified 09/05/18 11:42 PMH/Surg Hx/FS Hx/Imm Hx Endocrine History: Diabetes, Dyslipidemia Cardiovascular History: Cardiac Disease, Hypertension Other History Of: Anticoagulant Therapy - 325mg asa daily - Surgical History Surgical History: Yes Surgery Procedure, Year, and Place: cardiac stents x2- APPROVED BY DR LYLES FOR THIS MRI OF BRAIN IN NORMAL MODE ON 03/22/16- PT HAS NO INFO ON THE STENTS, IF WE EVER NEED TO SCAN HER IN THE FUTURE WE NEED THE INFORMATION. PT BELIEVES THEY WERE DONE AT [facility] 7 OR 8 YRS AGO - Family History Known Family History: Positive: Cardiac Disease, Hypertension, Diabetes, Other - sister: breast [place] - Social History Occupation: Employed Full-time Lives: With Family Alcohol Use: None Substance Use Type: None Smoking Status (MU): Heavy Every Day Tobacco Smoker Household Exposure Type: Cigarettes - Immunization History Most Recent Influenza Vaccination: 2014 Most Recent Tetanus Shot: Unknown Most Recent Pneumonia Vaccination: Unknown Review of Systems All Other Systems Reviewed And Are Negative: Yes Constitutional: Negative: Fever, Chills Physical Exam - Summary Physical Exam Summary: GENERAL APPEARANCE: Well developed, well nourished, alert and cooperative, and appears to be in no acute distress. EYES: Conjunctiva clear. No drainage. EARS: External auditory canals and tympanic membranes clear, hearing grossly intact. NOSE: Moderate nasal congestion. No nasal discharge. THROAT: Mild pharyngeal erythema. No tonsilar inflammation, swelling, exudate, or lesions. Uvula midline. NECK: Neck supple, non-tender without lymphadenopathy. CARDIAC: Normal S1 and S2. No S3, S4 or murmurs. Rhythm is regular. There is no peripheral edema, cyanosis or pallor. Extremities are warm and well perfused. Capillary refill is less than 2 seconds. Peripheral pulses intact. LUNGS: Clear to auscultation without rales, rhonchi, wheezing or diminished breath sounds. Non-productive cough. ABDOMEN: Positive bowel sounds. Soft, nondistended, nontender. No guarding or rebound. No masses or hepatosplenomegally. MUSKULOSKELETAL: ROM intact to all extremities. No joint erythema or tenderness. Normal muscular development. Normal gait. SKIN: Skin normal color, texture and turgor with no lesions or eruptions. Triage Information Reviewed: Yes Vital Signs: Initial Vital Signs Temp 99 F 09/05/18 11:39 Pulse 107 09/05/18 11:39 Resp 20 09/05/18 11:39 BP 148/79 09/05/18 11:39 Pulse Ox 98 09/05/18 11:39 Vital Signs Reviewed: Yes Throat Pain/Nasal Course/Dx - Course Course Of Treatment: 58 year old female presents with 1 week history of general malaise, chills, nasal congestion, sore throat, and a productive cough. States she was seen by her PCP 4 days ago and diagnosed with a viral URI but states symptoms are progressively getting worse. Denies ear pain, dysphagia , chest pain, SOB, abdominal pain, N/V/D. Afebrile. VSS. Exam remarkable for moderate nasal congestion, mild pharyngeal erythema without tonsilar swelling or exudate, no cervical lymphadenopathy, clear bilateral breath sounds, and a non-productive cough. Considering the worsening of her symptoms will start her on a course of azithromycin as well as symptomatic care for URI. She is to follow up with her PCP in 3 days for a recheck of her symptoms. Anticipatory guidance and warning symptoms reviewed with patient. Verbalizes understanding and agrees with POC. - Differential Dx/Diagnosis Differential Diagnosis/HQI/PQRI: Influenza, Pharyngitis, Sinusitis, URI Provider Diagnosis: Upper respiratory infection with cough and congestion Discharge - Sign-Out/Discharge Documenting (check all that apply): Patient Departure All imaging exams completed and their final reports reviewed: No Studies - Discharge Plan Condition: Stable Disposition: HOME Prescriptions: Azithromyxin KAYLA (NF) [Z-Kayla (Zithromax) 250 mg tabs #6] 2 tab PO .TODAY, THEN 1 DAILY #6 tab Benzonatate CAP* [Tessalon 100 MG CAP*] 100 mg PO TID PRN #30 cap PRN Reason: Cough Fluticasone NASAL SPRAY 50MCG* [Flonase NASAL SPRAY 50MCG*] 2 spray BOTH NARES DAILY #1 btl Patient Education Materials: Upper Respiratory Infection (ED) Forms: *Work Release Referrals: Sandrine Meléndez MD [Primary Care Provider] - 3 Days Additional Instructions: Your history and exam are consistent with an upper respiratory infection. Considering the worsening of your symptoms we will start you on an antibiotic. Take azithromycin 2 tabs today then 1 tab a day for next 4 days. Drink plenty of fluids. Use a saline rinse kit such as Neti Pot or NeilMed at least twice a day to help thin secretions and promote drainage of the sinuses. Use fluticasone (Flonase) nasal spray 2 sprays each nostril once daily. Take Tessalon Perles 1 cap every 8 hours as needed for cough. Take over the counter acetaminophen (Tylenol) or ibuprofen (Advil, Motrin) according to directions as needed for pain or fever. Use salt water gargles several times a day if you have a sore throat. You may also use Chloraseptic spray or Cepacol lonzenges according to directions which contain a numbing medication and can provide some temporary relief from your sore throat. Follow up with your primary care provider in 3 days for a recheck of your symptoms. Seek immediate medical attention in the emergency room if you have fever greater than 100.5 F despite taking acetaminophen or ibuprofen, have chest pain , difficulty breathing, are unable to swallow, or have any worsening of symptoms. - Billing Disposition and Condition Condition: STABLE Disposition: Home
== END 2018-09-05 13:29 | disposition home or self-care (01) ==
LOC: UCEAST 11:33
DX: J06.9 Acute upper respiratory infection, unspecified (principal); R05 Cough; J34.89 Other specified disorders of nose and nasal sinuses; F17.210 Nicotine dependence, cigarettes, uncomplicated; Z79.82 Long term (current) use of aspirin; Z98.61 Coronary angioplasty status
CPT/HCPCS: 99212; G0463

== ENCOUNTER → 2018-09-07 14:52 | Emergency (ER) | payer BC ==
[2018-09-07 18:14] VITALS: BP 155/78
--- NOTE | 2018-09-08 05:58 | ED ---
Influenza-Like Illness - HPI Summary HPI Summary: Patient is a 58-year-old female who presents emergency department for ongoing cough times one week. Patient notes active cough with occasional shortness of breath with activity. She is a daily smoker. Patient also notes sinus congestion. Patient states she was seen by her family doctor as well as urgent care was started on azithromycin, Tessalon Perles, Flonase 3 days ago. Patient presents his cough persists and she is my feeling any better. Patient denies chest pain or current shortness of breath, abdominal pain, vomiting, diarrhea. Past medical history of diabetes and high blood pressure. Symptoms are mild in severity. No current modifying factors. - History of Current Complaint Chief Complaint: EDUpperRespComplaint Time Seen by Provider: 09/07/18 16:24 Hx Obtained From: Patient - Allergy/Home Medications Allergies/Adverse Reactions: Allergies Allergy/AdvReac Type Severity Reaction Status Date / Time pregabalin [From Lyrica] Allergy Tingling Verified 09/07/18 15:06 PMH/Surg Hx/FS Hx/Imm Hx Previously Healthy: Yes Endocrine/Hematology History: Reports: Hx Anticoagulant Therapy - 325mg asa daily, Hx Diabetes - DM II Cardiovascular History: Reports: Hx Hypertension, Hx Myocardial Infarction - with 2 cardiac stents Denies: Hx Pacemaker/ICD Respiratory History: Denies: Hx Asthma, Hx Chronic Obstructive Pulmonary Disease (COPD) History: Denies: Hx Dialysis, Hx Renal Disease Sensory History: Reports: Hx Contacts or Glasses Denies: Hx Hearing Aid Opthamlomology History: Reports: Hx Contacts or Glasses Neurological History: Reports: Other Neuro Impairments/Disorders - dizziness Denies: Hx Dementia, Hx Seizures Psychiatric History: Denies: Hx Panic Disorder, Hx Substance Abuse - Cancer History Cancer Type, Location and Year: ca breast, currently - Surgical History Surgery Procedure, Year, and Place: cardiac stents x2- APPROVED BY DR LYLES FOR THIS MRI OF BRAIN IN NORMAL MODE ON 03/22/16- PT HAS NO INFO ON THE STENTS, IF WE EVER NEED TO SCAN HER IN THE FUTURE WE NEED THE INFORMATION. PT BELIEVES THEY WERE DONE AT [facility] 7 OR 8 YRS AGO - Immunization History Date of Influenza Vaccine: 2013 Infectious Disease History: No Infectious Disease History: Denies: Hx Clostridium Difficile, Hx Hepatitis, Hx Human Immunodeficiency Virus (HIV), Hx Shingles, Hx Tuberculosis, Traveled Outside the [place] in Last 30 Days - Family History Known Family History: Positive: Cardiac Disease, Hypertension, Diabetes, Other - sister: breast [place] - Social History Occupation: Employed Full-time Lives: With Family Alcohol Use: None Substance Use Type: Reports: None Smoking Status (MU): Heavy Every Day Tobacco Smoker Review of Systems Positive: Chills. Negative: Fever Eyes: Negative Positive: Nasal Discharge Cardiovascular: Negative Negative: Palpitations, Chest Pain Positive: Shortness Of Breath, Cough Gastrointestinal: Negative Negative: Abdominal Pain, Vomiting, Diarrhea Genitourinary: Negative Musculoskeletal: Negative Skin: Negative Neurological: Negative All Other Systems Reviewed And Are Negative: Yes Physical Exam Triage Information Reviewed: Yes Vital Signs On Initial Exam: Initial Vitals Temp Pulse Resp BP Pulse Ox 97.1 F 72 16 125/74 95 09/07/18 15:01 09/07/18 15:01 09/07/18 15:01 09/07/18 15:01 09/07/18 15:01 Vital Signs Reviewed: Yes Appearance: Positive: Well-Appearing - Pt. sitting up in bed in NAD. present. Skin: Positive: Warm, Dry Head/Face: Positive: Normal Head/Face Inspection Eyes: Positive: Normal, EOMI, SAW, Conjunctiva Clear ENT: Positive: Pharynx normal, TMs normal, Sinus tenderness - maxillary Neck: Positive: Supple, Nontender. Negative: Nuchal Rigidity Respiratory/Lung Sounds: Positive: Other - Very slight wheeze noted in bases. Negative: Unable to speak in full sentences, Fatigue Cardiovascular: Positive: Normal, RRR Musculoskeletal: Positive: Normal, Strength/ROM Intact Neurological: Positive: Normal, CN Intact II-III Psychiatric: Positive: Affect/Mood Appropriate Diagnostics - Vital Signs Vital Signs Temp Pulse Resp BP Pulse Ox 09/07/18 18:13 97.9 F 71 18 155/78 94 09/07/18 15:01 97.1 F 72 16 125/74 95 - Laboratory Lab Statement: Any lab studies that have been ordered have been reviewed, and results considered in the medical decision making process. Flu Symptom Course/Dx - Course Course Of Treatment: Pt. presenting for ongoing cough and sinus congestion. She is afebrile and nontoxic. O2 saturation is 95% on RA which is normal. CXR shows changes suggestive of COPD without infiltrate per radiology. Will add a course of prednisone and albuterol. Can continue antibx as directed. Advised to avoid smoking. To f.u with PCP and return to ER if sxs change or worsen. - Diagnoses Differential Diagnosis/HQI/PQRI: Positive: Bronchitis, Influenza, Pneumonia, Upper Respiratory Infection Provider Diagnoses: Bronchitis Discharge - Sign-Out/Discharge Documenting (check all that apply): Patient Departure Patient Received Moderate/Deep Sedation with Procedure: No - Discharge Plan Condition: Good Disposition: HOME Prescriptions: Albuterol HFA INHALER* [Ventolin HFA Inhaler*] 2 puff INH Q6H PRN #1 mdi PRN Reason: Shortness Of Breath predniSONE TAB* [Deltasone 20 MG TAB*] 40 mg PO DAILY #10 tab Patient Education Materials: Acute Bronchitis (ED) Forms: *Work Release Referrals: Sandrine Meléndez MD [Primary Care Provider] - Additional Instructions: Call PCP tomorrow for a close follow up appointment Continue medication as directed Start new medication tonight Avoid smoking Return to ER if symptoms change or worsen - Billing Disposition and Condition Condition: GOOD Disposition: Home
== END | disposition home or self-care (01) ==
LOC: ED 14:52
DX: J40 Bronchitis, not specified as acute or chronic (principal); E11.9 Type 2 diabetes mellitus without complications; F17.210 Nicotine dependence, cigarettes, uncomplicated; Z79.01 Long term (current) use of anticoagulants
CPT/HCPCS: 71046; 99282

== ENCOUNTER 2018-10-04 12:23 | Emergency (ER) | payer BC ==
[2018-10-04 12:32] VITALS: BP 166/84
--- NOTE | 2018-10-04 12:37 | UC ---
Throat Pain/Nasal Jesse HPI - HPI Summary HPI Summary: 58 y/o female presents to the urgent care c/o sinus pain, yellowish nasal discharge s/ B/L ear pressure worsening for the past week. Pt reports symptoms started w/ a URI. She was seen here at the clinic about a month and Dx w/ URI. Since then, she has been w/ nasal congestion and a lot of yellowish PND w/ a dry cough. However symptoms has worsen. Sinus pain is 6/10. Pt feels her ears have fluid. Pt denies fever, dizziness, visual changes, SOB, chest pain, abdominal pain, N/V/D. 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 Onset/Duration: Gradual Onset, Lasting Weeks - 4 weeks, Still Present, Worse Since - 3 days Severity: Moderate Pain Intensity: 6 Pain Scale Used: 0-10 Numeric Cough: Other: - positive yellowish PND Associated Signs & Symptoms: Positive: Sinus Discomfort, Nasal Discharge - yellowish - Epiglottits Risk Factors Epiglottis Risk Factors: Negative - Allergies/Home Medications Allergies/Adverse Reactions: Allergies Allergy/AdvReac Type Severity Reaction Status Date / Time pregabalin [From Lyrica] Allergy Tingling Verified 10/04/18 12:32 PMH/Surg Hx/FS Hx/Imm Hx Previously Healthy: Yes Endocrine History: Diabetes, Dyslipidemia Cardiovascular History: Hypertension Other History Of: Anticoagulant Therapy - 325mg asa daily - Surgical History Surgical History: Yes Surgery Procedure, Year, and Place: cardiac stents x2- APPROVED BY DR LYLES FOR THIS MRI OF BRAIN IN NORMAL MODE ON 03/22/16- PT HAS NO INFO ON THE STENTS, IF WE EVER NEED TO SCAN HER IN THE FUTURE WE NEED THE INFORMATION. PT BELIEVES THEY WERE DONE AT [facility] 7 OR 8 YRS AGO - Family History Known Family History: Positive: Cardiac Disease, Hypertension, Diabetes, Other - sister: breast [place] - Social History Occupation: Employed Full-time Lives: With Family Alcohol Use: None Substance Use Type: None Smoking Status (MU): Heavy Every Day Tobacco Smoker Household Exposure Type: Cigarettes - Immunization History Most Recent Influenza Vaccination: 2014 Most Recent Tetanus Shot: Unknown Most Recent Pneumonia Vaccination: Unknown Review of Systems All Other Systems Reviewed And Are Negative: Yes Constitutional: Positive: Negative Skin: Positive: Negative Eyes: Positive: Negative ENT: Positive: Ear Ache - b/L ear pain and pressure, Nasal Discharge - yellowish , Sinus Congestion, Sinus Pain/Tenderness, Other Respiratory: Positive: Negative Cardiovascular: Positive: Negative Gastrointestinal: Positive: Negative Genitourinary: Positive: Negative Motor: Positive: Negative Neurovascular: Positive: Negative Musculoskeletal: Positive: Negative Neurological: Positive: Negative Psychological: Positive: Negative Is Patient Immunocompromised?: No Physical Exam - Summary Physical Exam Summary: Vitals: reviewed General: Well developed, well-nourished obese female patient with NAD. Head and face: Normocephalic and atraumatic, Positive tenderness over the frontal and maxillary sinuses.. Eyes: PERRLA, EOMI x 2. Normal conjunctiva. No eye discharge. ENT: Ears and TM with normal limits. Nose: edematous and erythematous nasal mucosa with with yellowish discharge and erythematous mucosa. Pharynx with erythema, no exudate. Positive moderated yellowish PND Neck: Supple, no JVD, no carotid bruits and no lymphadenopathy. Lungs: clear, no rales, no rhonchi, no wheezes. CVS: RRR, S1 and S2 present no murmurs or gallops appreciated. Abdomen: soft nontender with positive bowel sounds. Extremities: no edema noted. Neuro: WNL. Skin: warm and dry Triage Information Reviewed: Yes Vital Signs: Initial Vital Signs Temp 96.6 F 10/04/18 12:27 Pulse 89 10/04/18 12:27 Resp 18 10/04/18 12:27 BP 166/84 10/04/18 12:27 Pulse Ox 100 10/04/18 12:27 Throat Pain/Nasal Course/Dx - Course Course Of Treatment: 58 y/o female presents to the urgent care c/o sinus pain, yellowish nasal discharge s/ B/L ear pressure worsening for the past week. Pt reports symptoms started w/ a URI. She was seen here at the clinic about a month and Dx w/ URI. Since then, she has been w/ nasal congestion and a lot of yellowish PND w/ a dry cough. However symptoms has worsen. Sinus pain is 6/10. Pt feels her ears have fluid. Pt denies fever, dizziness, visual changes, SOB, chest pain, abdominal pain, N/V/D. Hx obtained. Pt with 4 weeks of symptoms getting worse. Pt Rx Amoxicillin PO and flonase nasal spray. Pt's BP is elevated today advised to decrease salt in diet, monitor BP and f/u with PCP for further management. Discharge instructions explained to Pt. Advised to Return to the clinic or PCP if symptoms do not improve.Pt understood and agreed with plan of care. - Differential Dx/Diagnosis Differential Diagnosis/HQI/PQRI: Influenza, Laryngitis, Otitis Media, Sinusitis , Tonsillitis, URI Provider Diagnosis: Acute bacterial sinusitis, Uncontrolled hypertension Discharge - Sign-Out/Discharge Documenting (check all that apply): Patient Departure - D/C home All imaging exams completed and their final reports reviewed: No Studies - Discharge Plan Condition: Stable Disposition: HOME Prescriptions: Amoxicillin PO (*) [Amoxicillin 875 MG (*)] 875 mg PO BID #20 tab Fluticasone NASAL SPRAY 50MCG* [Flonase NASAL SPRAY 50MCG*] 2 spray BOTH NARES DAILY #1 btl Patient Education Materials: Sinusitis (ED) Forms: *Work Release Referrals: Sandrine Meléndez MD [Primary Care Provider] - 1 Week () Additional Instructions: 1- Please increase fluid intake and rest. take full course of antibiotic to avoid resistance 2-Use Flonase as directed to help drain fluid. Also buy saline drops to clear sinuses 3-Return to the clinic or PCP in 3 days if symptoms do not improve for further management and treatment 4- Your BP is elevated today. please decrease salt in your diet, monitor BP and if it continues to be elevated please f/u with your PCP for further management. - Billing Disposition and Condition Condition: STABLE Disposition: Home
== END 2018-10-04 13:05 | disposition home or self-care (01) ==
LOC: UCEAST 12:23
DX: J01.90 Acute sinusitis, unspecified (principal); H92.03 Otalgia, bilateral; I10 Essential (primary) hypertension; E11.9 Type 2 diabetes mellitus without complications; E78.5 Hyperlipidemia, unspecified; Z88.8 Allergy status to other drugs, medicaments and biological substances; Z79.82 Long term (current) use of aspirin; Z95.5 Presence of coronary angioplasty implant and graft; F17.210 Nicotine dependence, cigarettes, uncomplicated
CPT/HCPCS: 99212; G0463

== ENCOUNTER 2019-02-21 11:07 | Emergency (ER) | payer BC ==
--- OUTSIDE RECORDS SUMMARY | 2019-02-21 11:26 | XMS REPORT | Summary of Care ---
:1960 Author Organization [facility] Address [address] [facility] [place] [address] Care Team Providers Name Role Phone Sandrine Meléndez MD Primary Care Provider Reason for Visit Reason Comments Follow Up 2mth f/u , lab results , and wants yto k now if you want to keep her on januvia Encounter Details Date Type Department Care Team Description 01/11/2019 Office Visit [facility] Rika, Type 2 diabetes with nephropathy (HCC) (Primary Dx); Practice MD Sandrine Mixed hyperlipidemia [address] [place], [place] [address] [place] [address] [phone] Allergies No Known Allergiesdocumented as of this encounter (statuses as of 01/11/2019) Medications Medication Sig Dispensed Refills Start Date End Date Status Blood Glucose Monitoring Freestyle 100 Strip 5 01/02/2014 Active Suppl (BLOOD GLUCOSE TEST [place] Lite STRIPS STRP) 250.00 Non Insulin Dependent Uses 2 times daily Lancets Does not apply 1 Each by Does 100 Each 5 06/23/2017 Active Misc not apply route TWICE DAILY. Freestyle Lite 250.00 Non Insulin Dependent Uses 2 times daily Aspirin 81 MG Oral Tab Take 81 mg by 0 Active mouth DAILY. metoprolol (LOPRESSOR) take 1 tablet by 60 Tab 5 06/12/2018 Active 100 MG Oral Tab mouth twice a day albuterol HFA (VENTOLIN) Take 2 Puffs by 1 Inhaler 2 06/22/2018 Active 108 (90 Base) MCG/ACT inhalation EVERY Inhalation Aero FOUR HOURS SolnIndications: Cough NEEDED (wheezing). metFORMIN HCL 1000 MG Take 1 Tab by 60 Tab 4 08/14/2018 Active Oral Tab mouth TWICE DAILY. Rosuvastatin Calcium Take 1 Tab by 30 Tab 11 10/16/2018 Active (CRESTOR) 40 MG Oral Tab mouth DAILY. amLodipine (NORVASC) 10 Take 1 Tab by 30 Tab 5 10/16/2018 Active MG Oral Tab mouth DAILY. nystatin (MYCOSTATIN) Apply under both 1 Tube 0 10/16/2018 Active 949644 UNIT/GM Apply breasts twice externally Cream daily until rash clears. Call if not clear within 10 days. sitagliptin (JANUVIA) 25 Take 1 Tab by 30 Tab 1 10/30/2018 Active MG Oral Tab mouth DAILY. glyBURIDE (DIABETA) 5 MG Take 2 Tabs by 120 Tab 5 11/16/2018 Active Oral Tab mouth TWICE DAILY. lisinopril (PRINIVIL, Take 1 Tab by 30 Tab 5 11/16/2018 Active ZESTRIL) 40 MG Oral Tab mouth DAILY. hydrochlorothiazide Take 1 Tab by 30 Tab 5 11/16/2018 Active (HCTZ, ORETIC) 25 MG Oral mouth DAILY. Tab documented as of this encounter (statuses as of 01/11/2019) Active Problems Problem Noted Date Ductal carcinoma in situ (DCIS) of right breast 12/13/2017 Overview: Added automatically from request for surgery [id number] Type 2 diabetes with nephropathy 06/18/2016 BMI 36.0-36.9,adult 02/18/2012 Overview: sustained wt reduction with portion control and sustained routine exercise. Set realistic goal of 1# wt reduction /week set 10 week goals. Essential hypertension, benign 03/11/2011 Mixed hyperlipidemia 12/21/2005 CAD in [place] artery 12/16/2005 Overview: Cardiac catheterization 12/10/[address] Plascencia: placement of one drug-eluting ( Xience) stent for restenotic lesion within the segment of the TAXUS stent placed in 2005. Cardiac catheterization 12/16/[address] Plascencia: stenting of the mid left anterior descending documented as of this encounter (statuses as of 01/11/2019) Resolved Problems Problem Noted Date Resolved Date Type 2 diabetes mellitus without complication 06/07/2016 07/19/2016 Type 2 diabetes mellitus without complication 12/16/2005 06/07/2016 documented as of this encounter (statuses as of 01/11/2019) Immunizations Name Administration Dates Next Due Influenza (IM) Preservative Free 01/20/2018, 05/31/2017, 03/14/2015, 03/15/2014, 04/07/2010 Influenza Vaccine Whole 03/16/2013, 03/09/2013, 03/22/2009, 03/27/2007 PNEUMOCOCCAL POLYSACCHARIDE VACCINE 10/16/2018 Pneumococcal Conjugate(13 Valent) 06/07/2016 documented as of this encounter Social History Tobacco Use Types Packs/Day Years Used Date Smoker, Current Status Unknown Cigarettes 1 31 Quit: 01/28/2014 Smokeless Tobacco: Never Used Comments: / taking "pills" to help her Alcohol Use Drinks/Week oz/Week Comments No Sex Assigned at Date Recorded Not on file Job Start Date Occupation Industry Not on file Not on file Not on file Travel History Travel Start Travel End No recent travel history available. documented as of this encounter Last Filed Vital Signs Vital Sign Reading Time Taken Comments Blood Pressure 130/70 01/11/2019 4:13 PM EDT Pulse 82 01/11/2019 4:13 PM EDT Temperature 36.7 01/11/2019 4:13 PM EDT C (98.1 F) Respiratory Rate - - Oxygen Saturation 97% 01/11/2019 4:13 PM EDT Inhaled Oxygen Concentration - - Weight 83.2 kg (183 lb 6.4 oz) 01/11/2019 4:13 PM EDT Height 154.9 cm (5' 1") 01/11/2019 4:13 PM EDT Body Mass Index 34.65 01/11/2019 4:13 PM EDT documented in this encounter Patient Instructions Patient InstructionsSandrine Meléndez MD - 01/11/2019 4:00 PM EDT1. Schedule appointment with an eye doctor 2.Follow diabetic diet 3. Call with 1 week sugar diary 4. Schedule non fasting blood tests in 3 months documented in this encounter Progress Notes Sandrine Meléndez MD - 01/11/2019 4:00 PM EDT PATIENT: Edward Che : 1960 DATE OF SERVICE: 01/11/2019 SUBJECTIVE: 58-y.o. female for follow up of diabetes. Diabetic Review of Systems - medication compliance: compliant all of the time, diabetic diet compliance: noncompliant some of the time, home glucose monitoring: is performed regularly, but didn't bring sugar diary, eye exam - hasn't scheduled yet Past Medical History: Diagnosis Date Hyperlipidemia 12/21/2005 CAD 12/16/2005 DM 12/16/2005 Ductal carcinoma in situ (DCIS) of right breast 12/13/2017 Essential hypertension, benign 03/11/2011 GERD (gastroesophageal reflux disease) Poisoning, glutethimide group Current Outpatient Medications Medication Sig albuterol HFA (VENTOLIN) 108 (90 Base) MCG/ACT Inhalation Aero Soln Take 2 Puffs by inhalation EVERY FOUR HOURS NEEDED (wheezing). amLodipine (NORVASC) 10 MG Oral Tab Take 1 Tab by mouth DAILY. Aspirin 81 MG Oral Tab Take 81 mg by mouth DAILY. Blood Glucose Monitoring Suppl (BLOOD GLUCOSE TEST STRIPS STRP) Freestyle [place] Lite 250.00Non Insulin Dependent Uses 2 times daily glyBURIDE (DIABETA) 5 MG Oral Tab Take 2 Tabs by mouth TWICE DAILY. hydrochlorothiazide (HCTZ, ORETIC) 25 MG Oral Tab Take 1 Tab by mouth DAILY. Lancets Does not apply Misc 1 Each by Does not apply route TWICE DAILY. Freestyle Lite 250.00Non Insulin Dependent Uses 2 times daily lisinopril (PRINIVIL, ZESTRIL) 40 MG Oral Tab Take 1 Tab by mouth DAILY. metFORMIN HCL 1000 MG Oral Tab Take 1 Tab by mouth TWICE DAILY. metoprolol (LOPRESSOR) 100 MG Oral Tab take 1 tablet by mouth twice a day nystatin (MYCOSTATIN) 461169 UNIT/GM Apply externally Cream Apply under both breasts twice daily until rash clears. Call if not clear within 10 days. Rosuvastatin Calcium (CRESTOR) 40 MG Oral Tab Take 1 Tab by mouth DAILY. sitagliptin (JANUVIA) 25 MG Oral Tab Take 1 Tab by mouth DAILY. No current facility-administered medications for this visit. OBJECTIVE: BP 130/70 (BP Location: Left arm, Patient Position: Sitting) | Pulse 82 | Temp 98.1 F (36.7 C) | Ht 5' 1" (1.549 m) | Wt 183 lb 6.4 oz (83.2 kg ) | LMP 08/21/2011 | SpO2 97% | BMI 34.65 kg/m General appearance: alert, well appearing, and in no distress. Chest: clear to auscultation, no wheezes, rales or rhonchi, symmetric air entry. CVS exam: normal rate, regular rhythm, normal S1, S2, no murmurs, rubs, clicks or gallops. HGA1C - high, no improvement, CMP - elevated sugar, FLP - low HDL Component Latest Ref Rng & Units 01/06/2019 01/06/2019 01/06/2019 9:26 AM 9:26 AM 9:26 AM Sodium 134 - 145 mmol/L 138 Potassium 3.5 - 5.1 mmol/L 4.6 Chloride 98 - 107 mmol/L 103 CO2 22 - 30 mmol/L 27 Calcium 8.3 - 10.1 mg/dl 9.5 Albumin 3.5 - 5.0 g/dl 4.2 BUN 7 - 17 mg/dl 21 (H) Creatinine 0.7 - 1.2 mg/dl 0.6 (L) Glucose (Lab) 70 - 99 mg/dl 146 (H) Protein,Total 6.3 - 8.2 g/dl 7.5 Total Bilirubin 0.0 - 1.1 MG/DL 0.9 AST 15 - 46 U/L 24 ALT 9 - 52 U/L 25 ALKALINE PHOSPHATASE 40 - 150 U/L 61 eGFR See Interpretation Below ml/min/1.73ml Sq >60 BUN/Creatinine Ratio 6 - 22 RATIO 35 (H) Anion Gap 3 - 11 mmol/L 8 A/G Ratio 0.8 - 2.0 ratio 1.3 Cholestrol <200 mg/dl 146 HDL >50 mg/dl 44 (L) Triglycerides <150 mg/dl 114 LDL Cholesterol <100 MG/DL 79 Cholesterol / HDL Ratio RATIO 3.3 LDL / HDL Ratio 1.8 Non-HDL Cholesterol 0 - 130 MG/DL 102 Glycohemoglobin - POCT <=5.6 % 9.3 (H) I have recommended the following steps for improving diabetic care and outcome to her: diabetic dietdiscussed , low cholesterol diet, weight control and daily exercise discussed, home glucose monitoring emphasized, annual eye examinations at Ophthalmology discussed, glycohemoglobin and other lab monitoring discussed and terminal operator diabetic complications discussed. ICD-9-CM ICD-10-CM 1. Type 2 diabetes with nephropathy (HCC) 250.40 E11.21 MICROALBUMIN, RANDOM URINE W/ CREATININE Poorly controlled Consider to increase Russelluvia 583.81 MICROALBUMIN, RANDOM URINE W/ CREATININE COMPREHENSIVE METABOLIC PANEL GLYCOHEMOGLOBIN A1C 2. Mixed hyperlipidemia 272.2 E78.2 Patient Instructions 1. Schedule appointment with an eye doctor 2.Follow diabetic diet 3. Call with 1 week sugar diary 4. Schedule non fasting blood tests in 3 months Author: Sandrine Meléndez MD 01/11/2019 16:45 documented in this encounter Plan of Treatment Date Type Specialty Care Team Description 02/05/2019 Ancillary Procedure Radiology 02/05/2019 Ancillary Procedure Radiology 02/19/2019 Office Visit General Surgery Abdon Woodruff MD [address] [place] [address] 04/13/2019 Lab Internal Medicine Name Type Priority Associated Diagnoses Order Schedule MICROALBUMIN, RANDOM URINE Lab Routine Type 2 diabetes with Expected: 01/11 W/ CREATININE nephropathy (HCC) (Approximate), Expires: 07/10/2019 COMPREHENSIVE METABOLIC Lab Routine Type 2 diabetes with Expected: 2018 PANEL nephropathy (HCC) (Approximate), Expires: 01/12/2020 GLYCOHEMOGLOBIN A1C Lab Routine Type 2 diabetes with Expected: 01/11/2019 nephropathy (HCC) (Approximate), Expires: 01/12/2020 Health Maintenance Due Date Last Done Comments ZOSTER IMMUNIZATION SERIES 01/19/2008 (1 of 2) LUNG CANCER SCREENING 2013 Diabetic Eye Exam 06/09/2017 06/09/2016 INFLUENZA VACCINE (#1) 2019 01/20/2018, 05/31/2017, 03/14/2015, Additional history exists HEMOGLOBIN A1C 04/08/2019 01/06/2019, 09/21/2018, 12/29/2017, Additional history exists MAMMOGRAM (SCREENING) 07/24/2019 07/24/2018, 12/14/2017, 09/29/2017, Additional history exists DEPRESSION SCREENING 10/17/2019 10/16/2018 FOOT EXAM 10/17/2019 10/16/2018, 10/16/2018, 06/23/2017, Additional history exists LIPID DISORDER SCREENING 01/07/2020 01/06/2019, 10/16/2018, 10/16/2018, Additional history exists PAP SMEAR 09/19/2020 09/19/2017, 06/18/2016, 06/18/2016, Additional history exists PNEUMOCOCCAL 0-64 YRS Completed 10/16/2018, 06/07/2016 HPV IMMUNIZATION SERIES Aged Out No longer eligible based on patient's age to complete this topic MENINGOCOCCAL VACCINE IMM Aged Out No longer eligible based on patient's age to complete this topic documented as of this encounter Goals Goal Patient Goal Associated Recent Patient-Stated? Author Type Problems Progress Blood Pressure Blood Pressure Essential 130/70 No Catherine, < 140/90 hypertension, (01/11/2019 alexandria Fernandes 4:13 PM EDT) Note: Hypertension Care Plan Based on the patient's clinical history and according to JNC 8 guidelines target blood pressure goal is less than 140/90. Based on the patient's last blood pressure of BP: 136/82 mmHg the patient is at at goal. As your provider, it is important that I advise you regarding: your current medications and help you with any challenges you may face taking your medications as directed (ex. instructions, cost, side effects, and interactions). Important lifestyle changes: exercise, weight reduction and diet your clinical goals and how you can achieve success: weight reduction, exercise plan and diet improvements medication management: adjusted medications as appropriate patient education/self-management tools provided: Current self-management tools adequate To successfully manage my Hypertension I will: monitor my blood pressure daily, understanding that my goal is less than 140/ 90 per my healthcare provider's recommendation. I will schedule an appointment with my provider if consistent abnormal readings greater than 160/100. take medications every day as prescribed by my healthcare provider and if unable to take them I will discuss with my provider. monitor for symptoms of chest pain, chest tightness/pressure, irregular heartbeat, persistent dizziness, radiating arm pain, and neck or jaw pain. If any of these symptoms are noticed I will seek medical attention immediately by calling 911 exercise/walk 30 minutes 3 day(s) per week. If I experience chest pain, chest tightness, or shortness of breath, I will seek medical attention immediately. follow a diet rich in fruits, vegetables, and low-fat dairy products with reduced content of saturated & total fat. I will reduce my sodium intake daily. An example is the DASH diet. To obtain more information please refer to the DASH Eating Plan listed in Educational Resources. record my blood pressure results. [facility] is safe and secure way for you to do this in your medical record online. try to obtain an ideal body weight. My recent weight was Weight: 193 lb ( 87.544 kg). My weight loss goal for my next office visit is 8# less. limit alcohol consumption. For men two drinks per day and women one drink per day. if currently smoking, will discuss how to quit smoking with my healthcare provider and work towards quitting. Educational Resources: National Heart, Lung, & Blood [place] http://nhlbi.nih.gov/hbp/index.html The DASH Diet Eating Plan http://www.nhlbi.nih.gov/health/health-topics/ topics/dash/ Academy of Nutrition & DIetetics http://eatright.org National Smoking Cessation Site http://smokefree.gov Blood Pressure < Blood Pressure 130/70 (01/11/2019 No Sandrine Meléndez, 140/90 4:13 PM EDT) Note: This is an individualized treatment (blood pressure) goal for Edward Che: Displayed above (on the left) is your goal for blood pressure control. Your most recent blood pressure is also shown above, on the right. You should try to achieve blood pressures that are lower than your goal listed above (on the left). Glycohemoglobin A1c < 7.0 Diabetes 9.3 (01/06/2019 9:26 No Sandrine Meléndez, AM EDT) Note: This is an individualized treatment (diabetes control, HgbA1C) goal for Edward Che: Displayed above is your progress towards your HgbA1C goal. Your goal is shown above (on the left); your most recent HgbA1C is shown on the right. Note that lower numbers are better. Weight loss vs. 18 mo Lifestyle 6.6 (01/11/2019 4:13 PM No Sandrine Meléndez MD max (lbs) >= 10 EDT) Note: This is an individualized lifestyle goal for Edward Che: Your body mass index (BMI) is more than 30. You should lose weight. A reasonable starting goal is to lose 10 pounds. Displayed above is how many pounds you have lost thus far towards your 10 pound weight loss goal. Keep immunizations current Lifestyle No Sandrine Meléndez MD Note: This is an individualized lifestyle goal for Edward Che: Please be sure to keep up-to-date on recommended immunizations. For example, this would include a yearly influenza vaccine. Immunization status can be seen by looking at the Health Maintenance sections of your e[facility], Plan of Care, and any After Visit Summaries. Take all prescribed medications as Self-management No Sandrine Meléndez MD directed Note: This is an individualized self-management goal for Edward Che: Please take all prescribed medications as directed. 1. Do not skip doses. If you cannot afford your medications, talk with your doctor. 2. Use a pill reminder system such as a pill box if needed. Your pharmacist can help you with this. 3. Contact your Pharmacy 5 days before your medication runs out. If you cannot take your medications for any reasons, talk with your doctor. 4. Please bring all of your medication bottles and inhalers (or a list of all your medications/inhalers) with you to every visit. Potential barriers to meeting all of your care plan goals will continue to be addressed on an ongoing basis. documented as of this encounter Implants Implanted Type Area Clay Pigeon Loader Device Shelf Model / Identifier Expiration Date Serial / Lot 2.5 X 12 Xience - [id number] [id number] [facility] [employer] [id number] / Implanted: Qty: 1 on 12/10/2008 at [facility] [id number] / [id number] documented as of this encounter Results Not on filedocumented in this encounter Visit Diagnoses Diagnosis Type 2 diabetes with nephropathy (HCC) - Primary Type II or unspecified type diabetes mellitus with renal manifestations, not stated as uncontrolled Mixed hyperlipidemia documented in this encounter Insurance Payer Benefit Plan / Subscriber ID Effective Dates Phone Address Type Group [employer] xxxxxxxxxxxx 2013-Present [employer] Name Account Type Relation to Date of Phone Billing Patient Address Edward Che Personal/Family 1960 [id number] (Home) [place], [place] [phone] [id number] (Work) documented as of this encounter
--- NOTE | 2019-02-21 11:37 | ED ---
Dizziness - HPI Summary HPI Summary: This patient is a 59 year old F presenting to ED with a chief complaint of lightheadedness since 02/19/19. Patient reports feeling weak, dizzy, off-balance , and nauseous. The patient rates the pain 0/10 in severity. Symptoms aggravated by nothing. Symptoms alleviated by nothing. Patient denies fever, headache, chest pain, blurred vision, shortness of breath, cough, abdominal pain. She has had these symptoms before, diagnosed as vertigo. She reports being able to walk okay, just slightly off-balance. She reports taking dizziness pills yesterday, but cannot remember the name of them. - History Of Current Complaint Chief Complaint: EDWeakness Stated Complaint: DIZZY,LIGHTHEADED, WEAKNESS PER PT Time Seen by Provider: 02/21/19 11:26 Hx Obtained From: Patient Onset/Duration: Still Present Timing: Constant Severity Initially: Mild Severity Currently: Mild Character: Lightheaded, Weak, Dizzy Aggravating Factor(s): Nothing Alleviating Factor(s): Nothing Associated Signs And Symptoms: Positive: Negative - Abdominal pain, Nausea. Negative: Chest Pain, SOB, Visual Changes, Fever - Allergies/Home Medications Allergies/Adverse Reactions: Allergies Allergy/AdvReac Type Severity Reaction Status Date / Time pregabalin [From Lyrica] Allergy Tingling Verified 02/21/19 11:18 Home Medications: Home Medications Amlodipine Besylate [Norvasc] 10 mg PO DAILY 02/21/19 [History Confirmed ] PMH/Surg Hx/FS Hx/Imm Hx Endocrine/Hematology History: Reports: Hx Anticoagulant Therapy - 325mg asa daily, Hx Diabetes - DM II Cardiovascular History: Reports: Hx Hypercholesterolemia, Hx Hypertension - on meds, Hx Myocardial Infarction - with 2 cardiac stents Denies: Hx Pacemaker/ICD Respiratory History: Denies: Hx Asthma, Hx Chronic Obstructive Pulmonary Disease (COPD) History: Denies: Hx Dialysis, Hx Renal Disease Sensory History: Reports: Hx Contacts or Glasses Denies: Hx Hearing Aid Opthamlomology History: Reports: Hx Contacts or Glasses Neurological History: Reports: Other Neuro Impairments/Disorders - dizziness Denies: Hx Dementia, Hx Seizures Psychiatric History: Denies: Hx Panic Disorder, Hx Substance Abuse - Cancer History Cancer Type, Location and Year: ca breast, currently - Surgical History Surgery Procedure, Year, and Place: cardiac stents x2- APPROVED BY DR LYLES FOR THIS MRI OF BRAIN IN NORMAL MODE ON 03/22/16- PT HAS NO INFO ON THE STENTS, IF WE EVER NEED TO SCAN HER IN THE FUTURE WE NEED THE INFORMATION. PT BELIEVES THEY WERE DONE AT [facility] 7 OR 8 YRS AGO - Immunization History Date of Influenza Vaccine: 2013 Infectious Disease History: No Infectious Disease History: Denies: Hx Clostridium Difficile, Hx Hepatitis, Hx Human Immunodeficiency Virus (HIV), Hx Shingles, Hx Tuberculosis, Traveled Outside the [place] in Last 30 Days - Family History Known Family History: Positive: Cardiac Disease, Hypertension, Diabetes, Other - sister: breast [place] - Social History Alcohol Use: None Hx Substance Use: No Substance Use Type: Reports: None Hx Tobacco Use: Yes Smoking Status (MU): Heavy Every Day Tobacco Smoker Review of Systems Negative: Fever Negative: Blurred Vision Negative: Chest Pain Negative: Shortness Of Breath, Cough Positive: Nausea. Negative: Abdominal Pain Neurological: Other - Lightheadedness, dizziness Positive: Weakness. Negative: Headache All Other Systems Reviewed And Are Negative: Yes Physical Exam - Summary Physical Exam Summary: VITAL SIGNS: Reviewed. GENERAL: Patient is a well-developed and nourished female who is lying comfortable in the stretcher. Patient is not in any acute respiratory distress. HEAD AND FACE: No signs of trauma. No ecchymosis, hematomas or skull depressions. No sinus tenderness. EYES: PERRLA, EOMI x 2, No injected conjunctiva, no nystagmus. EARS: Hearing grossly intact. Ear canals and tympanic membranes are within normal limits. MOUTH: Oropharynx within normal limits. NECK: Supple, trachea is midline, no adenopathy, no JVD, no carotid bruit, no c- spine tenderness, neck with full ROM. CHEST: Symmetric, no tenderness at palpation. LUNGS: Clear to auscultation bilaterally. No wheezing or crackles. CVS: Regular rate and rhythm, S1 and S2 present, no murmurs or gallops appreciated. ABDOMEN: Soft, non-tender. No signs of distention. No rebound, no guarding, and no masses palpated. Bowel sounds are normal. EXTREMITIES: FROM in all major joints, no edema, no cyanosis or clubbing. NEURO: Alert and oriented x 3. No acute neurological deficits. Speech is normal and follows commands. SKIN: Dry and warm. GCS: 15 Triage Information Reviewed: Yes Vital Signs On Initial Exam: Initial Vitals Temp Pulse Resp BP Pulse Ox 98.5 F 67 16 119/67 96 02/21/19 11:14 02/21/19 11:14 02/21/19 11:14 02/21/19 11:14 02/21/19 11:14 Vital Signs Reviewed: Yes Diagnostics - Vital Signs Vital Signs Temp Pulse Resp BP Pulse Ox 02/21/19 11:14 98.5 F 67 16 119/67 96 - Laboratory Result Diagrams: 02/21/19 11:54 02/21/19 11:54 Lab Statement: Any lab studies that have been ordered have been reviewed, and results considered in the medical decision making process. - Radiology CXR Radiology Interpretation Completed By: Radiologist Summary of Radiographic Findings: COPD. NO ACTIVE CARDIOPULMONARY DISEASE. Dr. Ordonez has reviewed this radiology report. - CT Brain CT Interpretation Completed By: Radiologist Summary of CT Findings: NO ACUTE INTRACRANIAL PATHOLOGY. Dr. Ordonez has reviewed this radiology report. - EKG 115 Cardiac Rate: NL - 65 BPM EKG Rhythm: Sinus Rhythm ST Segment: Normal Summary of EKG Findings: NSR 65 BPM, no ST elevations, Q wave in II, II, and aVF. Dr. Ordonez has reviewed and interpreted this EKG. Re-Evaluation - Re-Evaluation First Eval Re-Evaluation Time: 14:07 Change: Improved Comment: Patient ambulated and has a good steady walk. The patient does not have any type of ataxia. Patient reports feeling better. Discussed results with patient. Patient will be discharged home with dx of vertigo. Patient understands and agrees with this plan. Dizzy Course/Dx - Course Assessment/Plan: Patient is a 59 y/o female with c/c of dizziness. No VÁZQUEZ, no visual changes, no CP. no SOB, no palpitations. PMH: Vertigo. IV access obtained, placed on campus monitor. Patient given Meclizine and Valium. Blood work without any significant abnormality except for glucose 246, magnesium 1.8. Patient was given magnesium by mouth. She was given IV fluids. Head CT impression: no acute intracranial pathology. CXR impression: No acute cardiopulmonary disease. EKG: NSR no ST elevations. Blood work without a significant abnormality except for glucose of 246, magnesium 1.8. Troponin is 0.00. In the ED course the patient was given IV fluids, meclizine for the dizziness as well as diazepam. The patient was observed for a couple hours in the ED and the symptoms have subsided. I ambulated the patient myself and the patient has a good steady walk. The patient does not have any type of ataxia. Since the patients symptoms have resolved I will discharge the patient home with follow-up with primary care physician. The patient will be given a prescription for meclizine. At this point I discussed all the findings and test results with the patient. She was instructed to return to the emergency room immediately if any of the symptoms return or worsen. Patient understand and agree. Neurological exam before discharge: Patient is alert and oriented x 3. No acute neurological deficits. Patient's vital signs are stable. Patient is to follow up with CPP in the next 2 3 days. They understand and agree. Plan of care was discussed with the patient and patient understands and agrees with the plan of care. All questions were answered at patient satisfaction. There were no further complaints or concerns. - Diagnoses Provider Diagnoses: Vertigo Discharge ED - Sign-Out/Discharge Documenting (check all that apply): Patient Departure - Discharge Patient Received Moderate/Deep Sedation with Procedure: No - Discharge Plan Condition: Stable Disposition: HOME Prescriptions: Meclizine TAB* [Antivert 12.5 TAB*] 25 mg PO TID PRN #30 tab PRN Reason: Vertigo Patient Education Materials: Vertigo (ED) Forms: *Work Release Referrals: Sandrine Meléndez MD [Primary Care Provider] - 3 Days Additional Instructions: FOLLOW UP WITH YOUR PRIMARY CARE PROVIDER WITHIN ONE WEEK. RETURN TO THE ED FOR ANY WORSENING OR NEW SYMPTOMS. - Billing Disposition and Condition Condition: STABLE Disposition: Home - Attestation Statements Document Initiated by Karey: Yes Documenting Scribe: Bubba Rawls Provider For Whom Karey is Documenting (Include Credential): Rakesh Ordonez MD Scribe Attestation: Bubba Elaine, scribed for Rakesh Ordonez MD on 02/22/19 at 1837. Scribe Documentation Reviewed: Yes Provider Attestation: The documentation as recorded by the Bubba rose accurately reflects the service I personally performed and the decisions made by , Rakesh Ordonez MD Status of Scribe Document: Viewed
[2019-02-21] MEDS ORDERED: Meclizine TAB* 12.5 MG PO ONE (11:47)
[2019-02-21] MEDS ORDERED: NS 0.9% 1000 ML** 1,000 ML IV ONE (11:47)
[2019-02-21] MEDS ORDERED: Diazepam TAB(*) 5 MG PO ONE (11:47)
[2019-02-21 12:09] LABS: ABS Basophils 0.1 10^3/ul (0-0.2); ABS Eosinophils 0.1 10^3/ul (0-0.6); ABS Lymphocytes 1.5 10^3/ul (1.0-4.8); ABS Monocytes 0.4 10^3/ul (0-0.8); ABS Neutrophils 5.2 10^3/ul (1.5-7.7); Eosinophil % 1.3 %; Hematocrit 46 % (35-47); Hemoglobin 15.3 g/dL (12.0-16.0); Lymphocyte % 21.1 %; Mean Corpuscular HGB Conc 34 g/dL (31-36); Mean Corpuscular Hemoglobin 28 pg (27-31); Mean Corpuscular Volume 84 fL (80-97); Mean Platelet Volume 8.1 fL (7.4-10.4); Platelet Count 269 10^3/uL (150-450); Red Blood Count 5.49 10^6 /uL (3.70-4.87); Red Cell Distribution Width 15 % (10-15); White Blood Count 7.3 10^3/uL (3.5-10.8)
[2019-02-21 12:27] LABS: ALT 16 U/L (7-52); AST 15 U/L (13-39); Albumin 4.3 g/dL (3.2-5.2); Albumin/Globulin Ratio 1.4 (1-3); Alkaline Phosphatase 58 U/L (34-104); Anion Gap 8 mmol/L (2-11); BUN/Creatinine Ratio 30.5 (8-20); Blood Urea Nitrogen 18 mg/dL (6-24); C Reactive Protein 7.23 mg/L (<8.01); CO2 Carbon Dioxide 26 mmol/L (22-32); Calcium 9.9 mg/dL (8.6-10.3); Chloride 105 mmol/L (101-111); Creatine Kinase 42 U/L (10-223); EGFR African American 125.4 (>60); EGFR Non-African American 103.6 (>60); Glucose 246 mg/dL (70-100); Magnesium 1.8 mg/dL (1.9-2.7); Potassium 3.9 mmol/L (3.5-5.0); Sodium 139 mmol/L (135-145); Total Protein 7.3 g/dL (6.4-8.9)
[2019-02-21 12:49] LABS: Alcohol < 10 mg/dL (<10)
[2019-02-21 14:10] LABS: Urine Appearance Clear; Urine Bilirubin Negative (Negative); Urine Blood Negative (Negative); Urine Color Straw; Urine Glucose 2+(150 mg/dL) (Negative); Urine Ketones Negative (Negative); Urine Nitrite Negative (Negative); Urine Protein Negative (Negative); Urine Urobilinogen Negative (Negative)
[2019-02-21] MEDS ORDERED: Magnesium Oxide TAB* 400 MG PO ONE (14:13)
[2019-02-21 14:37] VITALS: BP 108/48
== END 2019-02-21 14:37 | disposition home or self-care (01) ==
LOC: ED 11:07
DX: R42 Dizziness and giddiness (principal); R53.1 Weakness; R11.0 Nausea; J44.9 Chronic obstructive pulmonary disease, unspecified; E11.9 Type 2 diabetes mellitus without complications; Z79.84 Long term (current) use of oral hypoglycemic drugs; I25.2 Old myocardial infarction; I10 Essential (primary) hypertension; E78.00 Pure hypercholesterolemia, unspecified; Z79.82 Long term (current) use of aspirin; Z95.5 Presence of coronary angioplasty implant and graft; Z88.8 Allergy status to other drugs, medicaments and biological substances; F17.200 Nicotine dependence, unspecified, uncomplicated
CPT/HCPCS: 36415; 70450; 71046; 80053; 80320; 81003; 82550; 83605; 83735; 83880; 84443; 84484; 85025; 86140; 93005; 96360; 99284; A9270-GY; G0480

== ENCOUNTER 2019-03-03 14:55 | Emergency (ER) | payer BC ==
--- NOTE | 2019-03-03 15:23 | ED ---
Respiratory - HPI Summary HPI Summary: Pt is a 59 y/o F presenting to the ED with a chief upper respiratory complaint initially onset on 02/28/19. She states it began as a small sore throat and developed into head/nasal congestion with a nonproductive cough. She also notes it has been hard to sleep recently. She denies fever, vomiting, diarrhea, or dysuria. Her was recently ill with the same thing. She notes she has bad seasonal allergies but does not take anything OTC. - History of Current Complaint Chief Complaint: EDFluSymptoms Stated Complaint: GENERAL ILLNESS PER PT Hx Obtained From: Patient Onset/Duration: Gradual Onset, Lasting Days, Still Present Timing: Constant Initial Severity: Moderate Current Severity: Severe Pain Intensity: 8 Character: Cough (Nonproductive) Sputum Amount: None Aggravating Factor(s): Nothing Alleviating Factor(s): Nothing Associated Signs and Symptoms: Nasal Congestion - Allergy/Home Medications Allergies/Adverse Reactions: Allergies Allergy/AdvReac Type Severity Reaction Status Date / Time pregabalin [From Lyrica] Allergy Tingling Verified 02/21/19 11:18 PMH/Surg Hx/FS Hx/Imm Hx Previously Healthy: Yes Endocrine/Hematology History: Reports: Hx Anticoagulant Therapy - 325mg asa daily, Hx Diabetes - DM II Cardiovascular History: Reports: Hx Hypercholesterolemia, Hx Hypertension - on meds, Hx Myocardial Infarction - with 2 cardiac stents Denies: Hx Pacemaker/ICD Respiratory History: Denies: Hx Asthma, Hx Chronic Obstructive Pulmonary Disease (COPD) History: Denies: Hx Dialysis, Hx Renal Disease Sensory History: Reports: Hx Contacts or Glasses Denies: Hx Hearing Aid Opthamlomology History: Reports: Hx Contacts or Glasses Neurological History: Reports: Other Neuro Impairments/Disorders - dizziness Denies: Hx Dementia, Hx Seizures Psychiatric History: Denies: Hx Panic Disorder, Hx Substance Abuse - Cancer History Cancer Type, Location and Year: ca breast, currently - Surgical History Surgery Procedure, Year, and Place: cardiac stents x2- APPROVED BY DR LYLES FOR THIS MRI OF BRAIN IN NORMAL MODE ON 03/22/16- PT HAS NO INFO ON THE STENTS, IF WE EVER NEED TO SCAN HER IN THE FUTURE WE NEED THE INFORMATION. PT BELIEVES THEY WERE DONE AT [facility] 7 OR 8 YRS AGO - Immunization History Date of Influenza Vaccine: 2013 Infectious Disease History: No Infectious Disease History: Denies: Hx Clostridium Difficile, Hx Hepatitis, Hx Human Immunodeficiency Virus (HIV), Hx Shingles, Hx Tuberculosis, Traveled Outside the [place] in Last 30 Days - Family History Known Family History: Positive: Cardiac Disease, Hypertension, Diabetes, Other - sister: breast [place] - Social History Alcohol Use: None Hx Substance Use: No Substance Use Type: Reports: None Hx Tobacco Use: Yes Smoking Status (MU): Heavy Every Day Tobacco Smoker Review of Systems Positive: Other - difficulty sleeping. Negative: Fever Positive: Sore Throat, Other - congestion Positive: Cough Negative: Vomiting, Diarrhea Negative: dysuria All Other Systems Reviewed And Are Negative: Yes Physical Exam - Summary Physical Exam Summary: Constitutional: Well-developed, Well-nourished, Alert. (-) Distressed Skin: Warm, Dry HENT: Normocephalic; Atraumatic Eyes: Conjunctiva normal Neck: Musculoskeletal ROM normal neck. (-) JVD, (-) Stridor, (-) Tracheal deviation Cardio: Rhythm regular, rate normal, Heart sounds normal; Intact distal pulses; Radial pulses are 2+ and symmetric. (-) Murmur Pulmonary/Chest wall: Coarse breath sounds in the R base. (-) Respiratory distress, (-) Wheezes, (-) Rales Abd: Soft, (-) tenderness, (-) Distension, (-) Guarding, (-) Rebound Musculoskeletal: (-) Edema Lymph: (-) Cervical adenopathy Neuro: Alert, Oriented x3 Psych: Mood and affect Normal Triage Information Reviewed: Yes Vital Signs On Initial Exam: Initial Vitals Temp Pulse Resp BP Pulse Ox 97.4 F 88 16 136/70 98 03/03/19 14:58 03/03/19 14:58 03/03/19 14:58 03/03/19 14:58 03/03/19 14:58 Vital Signs Reviewed: Yes Procedures - Sedation Patient Received Moderate/Deep Sedation with Procedure: No Diagnostics - Vital Signs Vital Signs Temp Pulse Resp BP Pulse Ox 03/03/19 14:58 97.4 F 88 16 136/70 98 - Laboratory Lab Statement: Any lab studies that have been ordered have been reviewed, and results considered in the medical decision making process. - Radiology CXR Radiology Interpretation Completed By: Radiologist Summary of Radiographic Findings: Stigmata of obstructive lung disease. No acute pulmonary or cardiac process evident. ED physician has reviewed this report. Disposition - Course Course Of Treatment: Patient is here with nasal congestion and cough. Patient is a [id number] history of smoking and likely has underlying COPD. Patient's chest x-ray showed no evidence of pneumonia but she did have hyperinflated lungs. Patient is given a dose of Decadron here, started on an albuterol inhaler, and discharged with instructions on nasal congestion care. - Diagnoses Provider Diagnoses: Nasal congestion, Smoking, Cough Discharge ED - Sign-Out/Discharge Documenting (check all that apply): Patient Departure - Discharge Plan Condition: Stable Disposition: HOME Prescriptions: Albuterol HFA INHALER* [Ventolin HFA Inhaler*] 1 - 2 puff INH Q4H PRN #1 mdi PRN Reason: Cough Patient Education Materials: Cold Symptoms (ED) Forms: *Work Release Referrals: Sandrine Meléndez MD [Primary Care Provider] - Additional Instructions: Fill your prescription and use your inhaler for your coughing. Start taking a daily allergy pill ([place], Claritin, Zyrtec). Go buy a Neti-Pot, use it as directed. Use steam to clear up your sinuses. Come back to the emergency department with any fever, difficulty breathing, or any other concerning symptoms. - Billing Disposition and Condition Condition: STABLE Disposition: Home - Attestation Statements Document Initiated by Karey: Yes Documenting Scribe: Adriane Bansal Provider For Whom Karey is Documenting (Include Credential): Howard Griffith MD. Scribe Attestation: Adriane Elaine scribed for Howard Griffith MD. on 03/03/19 at 1647. Scribe Documentation Reviewed: Yes Provider Attestation: The documentation as recorded by the Adriane rose accurately reflects the service I personally performed and the decisions made by , Howard Griffith MD. Status of Scribe Document: Viewed
[2019-03-03] MEDS ORDERED: Dexamethasone TAB* 4 MG PO ONE (16:11)
[2019-03-03 16:46] VITALS: BP 135/71
== END 2019-03-03 16:45 | disposition home or self-care (01) ==
LOC: ED 14:55
DX: R09.81 Nasal congestion (principal); R05 Cough; F17.200 Nicotine dependence, unspecified, uncomplicated; E11.9 Type 2 diabetes mellitus without complications; E78.00 Pure hypercholesterolemia, unspecified; I10 Essential (primary) hypertension; I25.2 Old myocardial infarction; C50.919 Malignant neoplasm of unspecified site of unspecified female breast; Z95.5 Presence of coronary angioplasty implant and graft; Z79.82 Long term (current) use of aspirin; Z79.84 Long term (current) use of oral hypoglycemic drugs; Z79.899 Other long term (current) drug therapy; Z88.8 Allergy status to other drugs, medicaments and biological substances
CPT/HCPCS: 71046; 99282; J8540

== ENCOUNTER 2019-06-04 19:18 | Emergency (ER) | payer BC ==
--- OUTSIDE RECORDS SUMMARY | 2019-06-04 19:22 | XMS REPORT | Summary of Care ---
:1960 Author Organization [facility] Address [address] [facility] [place] [address] Care Team Providers Name Role Phone Sandrine Meléndez Primary Care Provider Reason for Visit Reason Comments Follow Up to type 2 diabetes, pt stated ears are feeling betgter no more ringing Encounter Details Date Type Department Care Team Description 05/29/2019 Office Visit [facility] [place], Type 2 diabetes with nephropathy (HCC) (Primary Dx); Practice MD Sandrine Vertigo [address] [place], [place] [id number] [place] [address] [phone] Allergies No Known Allergiesdocumented as of this encounter (statuses as of 05/29/2019) Medications Medication Sig Dispensed Refills Start End Date Status Date Blood Glucose Freestyle 100 Strip 5 Active Monitoring Suppl (BLOOD [place] Lite 4 GLUCOSE TEST STRIPS 250.00 Non STRP) Insulin Dependent Uses 2 times daily Lancets Does not apply 1 Each by Does 100 Each 5 Active Misc not apply 8 route TWICE DAILY. Freestyle Lite 250.00 Non Insulin Dependent Uses 2 times daily Aspirin 81 MG Oral Tab Take 81 mg by 0 Active mouth DAILY. albuterol HFA Take 2 Puffs 1 Inhaler 2 Active (VENTOLIN) 108 (90 by inhalation 9 Base) MCG/ACT EVERY FOUR Inhalation Aero HOURS SolnIndications: Cough NEEDED (wheezing). Rosuvastatin Calcium Take 1 Tab by 30 Tab 11 Active (CRESTOR) 40 MG Oral mouth DAILY. 9 Tab glyBURIDE (DIABETA) 5 Take 2 Tabs by 120 Tab 5 Active MG Oral Tab mouth TWICE 9 DAILY. lisinopril (PRINIVIL, Take 1 Tab by 30 Tab 5 Active ZESTRIL) 40 MG Oral Tab mouth DAILY. 9 metoprolol (LOPRESSOR) Take 1 Tab by 60 Tab 5 Active 100 MG Oral Tab mouth TWICE 9 DAILY. meclizine (ANTIVERT) 25 Take 1 Tab by 60 Tab 1 Active MG Oral Tab mouth THREE 9 TIMES DAILY NEEDED for dizziness/vert igo. amLodipine (NORVASC) 10 TAKE 1 TABLET 90 Tab 1 Active MG Oral Tab BY MOUTH DAILY 9 metFORMIN HCL 1000 MG TAKE 1 TABLET 60 Tab 1 Active Oral Tab BY MOUTH TWICE 9 A DAY hydrochlorothiazide TAKE 1 TABLET 30 Tab 3 Active (HCTZ, ORETIC) 25 MG BY MOUTH DAILY 9 Oral Tab Glucose Blood In Vitro 1 Each by In 100 Each 1 Active Strip Vitro route 9 TWO TIMES DAILY BEFORE MEALS. E11.9 fluticasone (FLONASE) SHAKE LIQUID 1 Bottle 3 Active 50 MCG/ACT Nasal AND USE 2 9 SuspensionIndications: SPRAYS IN EACH Acute URI NOSTRIL DAILY sitagliptin (JANUVIA) Take 1 Tab by 30 Tab 1 Active 50 MG Oral Tab mouth DAILY. 9 sitagliptin (JANUVIA) Take 1 Tab by 30 Tab 2 05/29/20 Discontinued 25 MG Oral Tab mouth DAILY. 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 On 12/16/2017, reflector localized right segmental mastectomy 2. On 01/04/2018, reexcision right segmental mastectomy Chemotherapy/Endocrine therapy: none Radiation Therapy: Adjuvant right breast irradiation- at [facility] under the care of Dr. Rangel, she was treated with a total dose of 5272 cGy which included a 1000 cGy boost to her right s egmental mastectomy cavity, treatment was initiated on 02/08/2018 and completed on 03/07/2018, a total of 20 fractions over 27 elapsed days. Clinical Trial: none Genetic/Mutation Testin10/11/2017 Attensa test - Genes tested included APC, AVERY, BARD1, BMPR1A, BRCA1, BRCA2, BRIP1, CDH1, CDK4, CDKN2A, CHEK2 , EPCAM (large rearrangement only), MLH1, MSH2, MSH 6, MUTYH, NBN, PALB2, PMS2, PTEN, RAD51C, RAD51D, SMAD4, STK11, and TP53. Ongoing Treatment: none Cancer Care Team: (include institution of [facility]) Medical Oncologist: n/a Phone: n/a Nurse Practitioner: n/a Phone: n/a Nurse Navigator: Nusrat Mcdaniels RN Surgeon: Dr. Abdon Woodruff Radiation Oncologist: At [facility] Cancer Surveillance or other Recommended Tests (These are general recommended guidelines, but your provider may make other recommendations based on your individual treatment plan) Breast Cancer (Non-invasive) Physical exam every 3 mos for 2 years, then every 6 mos to a total of 5 years Mammogram every 12 mos (1st mammogram 6-12 mos after breast conservation therapy) Cancer survivors may experience possible late and/or Long-Term Effect. If you have any concerns in these or other areas, please speak with your health care providers to find out how you can get help with them. Emotional and mental health and Fatigue Any of these new, unusual and/or persistent symptoms should be brought to the attention of your provider: Swelling of arms and legs, Unintentional Weight Loss, Nausea and Vomiting, Cough, Numbness, Night sweats, Unexplained fever, New lumps, Loss of appetite, Unusual bleeding, Shortness of breath or problem s breathing, Change in bowel habits and Change in moles or any skin changes/ lesions Resources you may be interested in: National Cancer [place]: www.cancer.gov National Comprehensive Cancer Network: www.nccn.org [place] Cancer Society: www.cancer.org ASCO, Doctor Approved Patient Information: www.cancer.net Prepared by: Jory Jordan RN Delivered by: Delivered on: This Survivorship Care Plan is a cancer treatment summary and follow-up plan and is provided to you to keep with your health care records and to share with your primary care provider or any of your doctors and nurses. This summary is a brief record of major aspects of your cancer treatment not a detailed or comprehensive record of your care. Last Assessment & Plan: Today, I reviewed Ms. Che's DCIS treatment summary and survivorship care plan with her. I provided her a copy of the treatment summary and survivorship care plan. Ductal carcinoma in situ (DCIS) of right breast 12/13/2017 Overview: Added automatically from request for surgery [id number] Type 2 diabetes with nephropathy 06/18/2016 BMI 36.0-36.9,adult 02/18/2012 Overview: sustained wt reduction with portion control and sustained routine exercise. Set realistic goal of 1# wt reduction /week set 10 week goals. Essential hypertension, benign 03/11/2011 Mixed hyperlipidemia 12/21/2005 CAD in [place] artery 12/16/2005 Overview: Cardiac catheterization 12/10/[address] Plascencia: placement of one drug-eluting ( Xience) stent for restenotic lesion within the segment of the TAXUS stent placed in 2005. Cardiac catheterization 12/16/[address] Plascencia: stenting of the mid left anterior descending documented as of this encounter (statuses as of 05/29/2019) Resolved Problems Problem Noted Date Resolved Date Type 2 diabetes mellitus without complication 06/07/2016 07/19/2016 Type 2 diabetes mellitus without complication 12/16/2005 06/07/2016 documented as of this encounter (statuses as of 05/29/2019) Immunizations Name Administration Dates Next Due Influenza (IM) Preservative Free 05/11/2019, 05/01/2019, 01/20/2018, 05/31/2017, 03/14/2015, 03/15/2014, 04/07/2010 Influenza Vaccine Whole 03/16/2013, 03/09/2013, 03/22/2009, 03/27/2007 PNEUMOCOCCAL POLYSACCHARIDE VACCINE 10/16/2018 Pneumococcal Conjugate(13 Valent) 06/07/2016 TDAP Vaccine 05/14/2019 documented as of this encounter Social History Tobacco Use Types Packs/Day Years Used Date Smoker, Current Status Unknown Cigarettes 06 29 Quit: 01/28/2014 Smokeless Tobacco: Never Used Comments: [...] Sign Reading Time Taken Comments Blood Pressure 118/62 05/29/2019 1:09 PM EST Pulse 78 05/29/2019 1:09 PM EST Temperature 36.2 05/29/2019 1:09 PM EST C (97.2 F) Respiratory Rate - - Oxygen Saturation 96% 05/29/2019 1:09 PM EST Inhaled Oxygen Concentration - - Weight 83.6 kg (184 lb 3.2 oz) 05/29/2019 1:09 PM EST Height 154.9 cm (5' 1") 05/29/2019 1:09 PM EST Body Mass Index 34.8 05/29/2019 1:09 PM EST documented in this encounter Patient Instructions Patient InstructionsSandrine Meléndez MD - 05/29/2019 1:00 PM EST1. Increase Januvia to 50 mg once a day in pm 2. Call with sugar diary in 2 weeks 3. Follow up in 1 month and as needed documented in this encounter Progress Notes Sandrine Meléndez MD - 05/29/2019 1:00 PM EST PATIENT: Edward Che : 1960 DATE OF SERVICE: 05/29/2019 SUBJECTIVE: 59-y.o. female for follow up of diabetes. Diabetic Review of Systems - medication compliance: compliant all of the time, diabetic diet compliance: compliant most of the time, home glucose monitoring: is performed regularly, fasting values range 140-150, non fasting values range 120-140. Other symptoms and concerns: much improved dizziness and tinnitus in Flonase nasal spray. Past Medical History: Diagnosis Date Hyperlipidemia 12/21/2005 CAD 12/16/2005 DM 12/16/2005 Ductal carcinoma in situ (DCIS) of right breast 12/13/2017 Essential hypertension, benign 03/11/2011 GERD (gastroesophageal reflux disease) Current Outpatient Medications Medication Sig albuterol HFA (VENTOLIN) 108 (90 Base) MCG/ACT Inhalation Aero Soln Take 2 Puffs by inhalation EVERY FOUR HOURS NEEDED (wheezing). amLodipine (NORVASC) 10 MG Oral Tab TAKE 1 TABLET BY MOUTH DAILY Aspirin 81 MG Oral Tab Take 81 mg by mouth DAILY. Blood Glucose Monitoring Suppl (BLOOD GLUCOSE TEST STRIPS STRP) Freestyle [place] Lite 250.00Non Insulin Dependent Uses 2 times daily fluticasone (FLONASE) 50 MCG/ACT Nasal Suspension SHAKE LIQUID AND USE 2 SPRAYS IN EACH NOSTRIL DAILY Glucose Blood In Vitro Strip 1 Each by In Vitro route TWO TIMES DAILY BEFORE MEALS. E11.9 glyBURIDE (DIABETA) 5 MG Oral Tab Take 2 Tabs by mouth TWICE DAILY. hydrochlorothiazide (HCTZ, ORETIC) 25 MG Oral Tab TAKE 1 TABLET BY MOUTH DAILY Lancets Does not apply Misc 1 Each by Does not apply route TWICE DAILY. Freestyle Lite 250.00Non Insulin Dependent Uses 2 times daily lisinopril (PRINIVIL, ZESTRIL) 40 MG Oral Tab Take 1 Tab by mouth DAILY. meclizine (ANTIVERT) 25 MG Oral Tab Take 1 Tab by mouth THREE TIMES DAILY NEEDED for dizziness/vertigo. metFORMIN HCL 1000 MG Oral Tab TAKE 1 TABLET BY MOUTH TWICE A DAY metoprolol (LOPRESSOR) 100 MG Oral Tab Take 1 Tab by mouth TWICE DAILY. Rosuvastatin Calcium (CRESTOR) 40 MG Oral Tab Take 1 Tab by mouth DAILY. sitagliptin (JANUVIA) 25 MG Oral Tab Take 1 Tab by mouth DAILY. No current facility-administered medications for this visit. OBJECTIVE: BP 118/62 (BP Location: Left arm, Patient Position: Sitting) | Pulse 78 | Temp 97.2 F (36.2 C) | Ht 5' 1" (1.549 m) | Wt 184 lb 3.2 oz (83.6 kg ) | LMP 08/21/2011 | SpO2 96% | BMI 34.80 kg/m General appearance: alert, well appearing, and in no distress. ICD-9-CM ICD-10-CM 1. Type 2 diabetes with nephropathy (HCC) 250.40 E11.21 583.81 2. Vertigo Much improved 780.4 R42 Patient Instructions 1. Increase Januvia to 50 mg once a day in pm 2. Call with sugar diary in 2 weeks 3. Follow up in 1 month and as needed Author: Sandrine Meléndez MD 05/29/2019 13:18 documented in this encounter Plan of Treatment Date Type Specialty Care Team Description 06/29/2019 Office Visit Family Practice Sandrine Meléndez MD [address] [place] [address] [phone] 07/31/2019 Ancillary Procedure Radiology 08/06/2019 Office Visit General Surgery Abdon Woodruff MD [address] [place] [address] [phone] Health Maintenance Due Date Last Done Comments LUNG CANCER SCREENING 2013 Diabetic Eye Exam 06/09/2017 06/09/2016 HEMOGLOBIN A1C 07/20/2019 04/19/2019, 01/06/2019, 09/21/2018, Additional history exists MAMMOGRAM (SCREENING) 07/24/2019 07/24/2018, 12/14/2017, 09/29/2017, Additional history exists DEPRESSION SCREENING 10/17/2019 10/16/2018 FOOT EXAM 10/17/2019 10/16/2018, 10/16/2018, 06/23/2017, Additional history exists LIPID DISORDER SCREENING 01/07/2020 01/06/2019, 10/16/2018, 10/16/2018, Additional history exists ZOSTER IMMUNIZATION SERIES 05/01/2020 Postponed from (1 of 2) 01/19/2008 (Vaccine not available) PAP SMEAR 09/19/2020 09/19/2017, 06/18/2016, 06/18/2016, Additional history exists DTaP/Tdap/Td Vaccines (2 - 05/14/2029 05/14/2019 Tdap) PNEUMOCOCCAL 0-64 YRS Completed 10/16/2018, 06/07/2016 INFLUENZA VACCINE Completed 05/11/2019, 05/01/2019, 01/20/2018, Additional history exists HEPATITIS A IMMUNIZATION Aged Out No longer eligible SERIES based on patient's age to complete this topic HPV IMMUNIZATION SERIES Aged Out No longer eligible based on patient's age to complete this topic MENINGOCOCCAL VACCINE IMM Aged Out No longer eligible based on patient's age to complete this topic documented as of this encounter Goals Goal Patient Goal Associated Recent Patient-Stated? Author Type Problems Progress Blood Pressure Blood Pressure Essential 118/62 No Catherine, < 140/90 hypertension, (05/29/2019 Dena, benign 1:09 PM EST) Note: Hypertension Care Plan Based on the [...] Educational Resources. record my blood pressure results. Safar[employer]se is safe and secure way for you [...] Educational Resources: National Heart, Lung, & Blood [place] http://nhlbi.nih.gov/hbp/index.html The DASH Diet Eating Plan http://www.nhlbi.nih.gov/health/health-topics/ topics/dash/ Academy of Nutrition & DIetetics http://eatright.org National Smoking Cessation Site http://smokefree.gov Blood Pressure < Blood Pressure 118/62 (05/29/2019 No Sandrine Meléndez, 140/90 1:09 PM EST) Note: This is an individualized treatment (blood pressure) goal for Edward Che: Displayed above (on the left) is your goal for blood pressure control. Your most recent blood pressure is also shown above, on the right. You should try to achieve blood pressures that are lower than your goal listed above (on the left). Glycohemoglobin A1c < 7.0 Diabetes 9.3 (04/19/2019 11:39 No Sandrine Meléndez, AM EST) Note: This is an individualized treatment (diabetes control, HgbA1C) goal for Edward Che: Displayed above is your progress towards your HgbA1C goal. Your goal is shown above (on the left); your most recent HgbA1C is shown on the right. Note that lower numbers are better. Weight loss vs. 18 mo Lifestyle 5.8 (05/29/2019 1:09 PM No Sandrine Meléndez MD max (lbs) >= 10 EST) Note: This is an individualized lifestyle goal for Edward Che: Your body mass index (BMI) is more than 30. You should lose weight. A reasonable starting goal is to lose 10 pounds. Displayed above is how many pounds you have lost thus far towards your 10 pound weight loss goal. Keep immunizations current Lifestyle Sandrine Peter MD Note: This is an individualized lifestyle [...] of this encounter Implants Implanted Type Area [employer] Device Shelf Model / Identifier Expiration Date Serial / Lot 2.5 X 12 Xience - [id number] LAD Mid [employer] [id number] / Implanted: Qty: 1 on 12/10/2008 at [facility] [id number] / [id number] documented as of this encounter Results Not on filedocumented in this encounter Visit Diagnoses Diagnosis Type 2 diabetes with nephropathy (HCC) Type II or unspecified type diabetes mellitus with renal manifestations, not stated as uncontrolled Vertigo Dizziness and giddiness documented in this encounter Insurance Payer Benefit Plan / Subscriber ID Effective Dates Phone Address Type Group [employer] xxxxxxxxxxxx 2013-Present [employer] Guarant[employer] Name Account Type Relation to Date of Phone Billing Patient Address Edward Che Personal/Family 1960 [address] (Home) [place], [place] [phone] [id number] (Work) documented as of this encounter
--- OUTSIDE RECORDS SUMMARY | 2019-06-04 19:22 | XMS REPORT | Summary of Care ---
:1960 Author Organization [facility] Address [address] [place] [address] Care Team Providers Name Role Phone Sandrine Meléndez Primary Care Provider Reason for Referral Refer to Department Only (Routine) Status Reason Specialty Diagnoses / Referred By Referred To Procedures Contact Contact Pending Review OTORHINOLARYNGOLOGY Diagnoses Vertigo Sandrine Meléndez MD [address] [place] [address] Scheduling Instructions Please indicate side affected in the diagnosis. 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, without long-term current use of insulin (HCC) (Primary Dx); Practice MD Sandrine Need for vaccination; [address] [place] [address] Vertigo; [place] [address] Acute URI [phone] Allergies No Known Allergiesdocumented as of this encounter (statuses as of 05/14/2019) Medications Medication Sig Dispensed Refills Start End Status Date Date Blood Glucose Freestyle 100 Strip 5 01/03/20 Active Monitoring Suppl (BLOOD Harrison Lite 14 GLUCOSE TEST STRIPS 250.00 Non STRP) Insulin Dependent Uses 2 times daily Lancets Does not apply 1 Each by Does 100 Each 5 06/23/19 Active Misc not apply 18 route TWICE DAILY. Freestyle Lite 250.00 Non Insulin Dependent Uses 2 times daily Aspirin 81 MG Oral Tab Take 81 mg by 0 Active mouth DAILY. albuterol HFA Take 2 Puffs 1 Inhaler 2 06/22/19 Active (VENTOLIN) 108 (90 by inhalation 19 Base) MCG/ACT EVERY FOUR Inhalation Aero HOURS SolnIndications: Cough NEEDED (wheezing). Rosuvastatin Calcium Take 1 Tab by 30 Tab 11 10/17/19 Active (CRESTOR) 40 MG Oral mouth DAILY. 19 Tab glyBURIDE (DIABETA) 5 Take 2 Tabs by 120 Tab 5 11/17/19 Active MG Oral Tab mouth TWICE 19 DAILY. lisinopril (PRINIVIL, Take 1 Tab by 30 Tab 5 11/17/19 Active ZESTRIL) 40 MG Oral Tab mouth DAILY. 19 metoprolol (LOPRESSOR) Take 1 Tab by 60 Tab 5 03/26/20 Active 100 MG Oral Tab mouth TWICE 19 DAILY. meclizine (ANTIVERT) 25 Take 1 Tab by 60 Tab 1 04/19/20 Active MG Oral Tab mouth THREE 19 TIMES DAILY NEEDED for dizziness/vert igo. amLodipine (NORVASC) 10 TAKE 1 TABLET 90 Tab 1 04/19/20 Active MG Oral Tab BY MOUTH DAILY 19 metFORMIN HCL 1000 MG TAKE 1 TABLET 60 Tab 1 05/09/20 Active Oral Tab BY MOUTH TWICE 19 A DAY hydrochlorothiazide TAKE 1 TABLET 30 Tab 3 05/10/20 Active (HCTZ, ORETIC) 25 MG BY MOUTH DAILY 19 Oral Tab Glucose Blood In Vitro 1 Each by In 100 Each 1 05/14/20 Active Strip Vitro route 19 TWO TIMES DAILY BEFORE MEALS. E11.9 sitagliptin (JANUVIA) Take 1 Tab by 30 Tab 2 05/14/20 Active 25 MG Oral Tab mouth DAILY. 19 fluticasone (FLONASE) SHAKE LIQUID 1 Bottle 3 05/14/20 Active 50 MCG/ACT Nasal AND USE 2 19 SuspensionIndications: SPRAYS IN EACH Acute URI NOSTRIL DAILY nystatin (MYCOSTATIN) Apply under 1 Tube 0 10/17/19 Discontinued [id number] UNIT/GM Apply both breasts 19 019 externally Cream twice daily until rash clears. Call if not clear within 10 days. sitagliptin (JANUVIA) Take 1 Tab by 30 Tab 1 06/03/20 12/16/2 Discontinued 25 MG Oral Tab mouth DAILY. 19 019 (Reorder) fluticasone (FLONASE) SHAKE LIQUID 1 Bottle 3 03/26/20 Discontinued 50 MCG/ACT Nasal AND USE 2 019 (Reorder) SuspensionIndications: SPRAYS IN EACH Acute URI NOSTRIL DAILY cefuroxime (CEFTIN) 500 Take 1 Tab by 20 Tab 0 04/19/20 Discontinued MG Oral Tab mouth EVERY 19 019 TWELVE HOURS. 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 On 12/16/2017, reflector localized right segmental mastectomy 2. On 01/04/2018, reexcision right segmental mastectomy Chemotherapy/Endocrine therapy: none Radiation Therapy: Adjuvant right breast irradiation- at [facility] under the care of Dr. Rangel, she was treated with a total dose of 5272 cGy which included a 1000 cGy boost to her right s egmental mastectomy cavity, treatment was initiated on 02/08/2018 and completed on 03/07/2018, a total of 20 fractions over 27 elapsed days. Clinical Trial: none Genetic/Mutation Testin10/11/2017 Swrve test - Genes tested included APC, AVERY, BARD1, BMPR1A, BRCA1, BRCA2, BRIP1, CDH1, CDK4, CDKN2A, CHEK2 , EPCAM (large rearrangement only), MLH1, MSH2, MSH 6, MUTYH, NBN, PALB2, PMS2, PTEN, RAD51C, RAD51D, SMAD4, STK11, and TP53. Ongoing Treatment: none Cancer Care Team: (include institution of [facility]) Medical Oncologist: n/a Phone: n/a Nurse Practitioner: n/a Phone: n/a Nurse Navigator: Nusrat Mcdaniels RN Surgeon: Dr. Abdon Woodruff Radiation Oncologist: At [place] Cancer Surveillance or other Recommended Tests (These [...] you may be interested in: National Cancer [place]: www.cancer.gov National Comprehensive Cancer Network: www.nccn.org [place] [employer]: www.cancer.org ASCO, Doctor Approved Patient [...] Overview: Added automatically from request for surgery [id number] Type 2 diabetes with nephropathy 06/18/2016 BMI 36.0-36.9,adult 02/18/2012 Overview: sustained wt reduction with portion control and sustained routine exercise. Set realistic goal of 1# wt reduction /week set 10 week goals. 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 Plascencia: placement of one drug-eluting ( Xience) stent for restenotic lesion within the segment of the TAXUS stent placed in 2005. Cardiac catheterization 12/16/[address] Plascencia: stenting of the mid left anterior descending documented as of this encounter (statuses as of 05/14/2019) Resolved Problems Problem Noted Date Resolved Date Type 2 diabetes mellitus without complication 06/07/2016 07/19/2016 Type 2 diabetes mellitus without complication 12/16/2005 06/07/2016 documented as of this encounter (statuses as of 05/14/2019) Immunizations Name Administration Dates Next Due Influenza [...] Sign Reading Time Taken Comments Blood Pressure 140/82 05/14/2019 1:28 PM EST Pulse 79 05/14/2019 1:28 PM EST Temperature 36.7 05/14/2019 1:28 PM EST C (98.1 F) Respiratory Rate - - Oxygen Saturation 98% 05/14/2019 1:28 PM EST Inhaled Oxygen Concentration - - Weight 82.8 kg (182 lb 8 oz) 05/14/2019 1:28 PM EST Height 154.9 cm (5' 1") 05/14/2019 1:28 PM EST Body Mass Index 34.48 05/14/2019 1:28 PM EST documented in this encounter Patient Instructions Patient InstructionsSandrine Meléndez MD - 05/14/2019 1:20 PM EST1. Take Januvia 25 mg once a day 2. Call in 1 week with sugar diary 3. Use Flonase 2 sprays in each nostril once a day 4. Schedule appointment with ENT 5. Call in 1 week with sugar diary 6. Follow up in 2 weeksElectronically signed by Sandrine Meléndez MD at 1:46 PM EST documented in this encounter Progress Notes Sandrine Meléndez MD - 05/14/2019 1:20 PM EST Patient: Edward Che Date of Service: 05/14/2019 Subjective: Edward Che is a 59-y.o. female who presents for Chief Complaint Patient presents with Follow Up on vertigo and sugar dairy, pt stated autologist said she has fluid in both ears Patient comes follow up positional vertigo Fair control with Meclozine Recent tympanogram consistent with possible bilateral middle ear fluid Home glucose monitoring: fasting values range 120-170, non fasting values range 120-130. Patient stopped Januvia some time ago Past Medical History: Diagnosis Date Hyperlipidemia 12/21/2005 CAD 12/16/2005 DM 12/16/2005 Ductal carcinoma in situ (DCIS) of right breast 12/13/2017 Essential hypertension, benign 03/11/2011 GERD (gastroesophageal reflux disease) Outpatient Medications as of 05/14/2019 Medication Sig Dispense Refill albuterol HFA (VENTOLIN) 108 (90 Base) MCG/ACT Inhalation Aero Soln Take 2 Puffs by inhalation EVERY FOUR HOURS NEEDED (wheezing). 1 Inhaler 2 amLodipine (NORVASC) 10 MG Oral Tab TAKE 1 TABLET BY MOUTH DAILY 90 Tab 1 Aspirin 81 MG Oral Tab Take 81 mg by mouth DAILY. Blood Glucose Monitoring Suppl (BLOOD GLUCOSE TEST STRIPS STRP) Freestyle Harrison Lite 250.00Non Insulin Dependent Uses 2 times daily 100 Strip 5 fluticasone (FLONASE) 50 MCG/ACT Nasal Suspension SHAKE LIQUID AND USE 2 SPRAYS IN EACH NOSTRIL DAILY 1 Bottle 3 glyBURIDE (DIABETA) 5 MG Oral Tab Take 2 Tabs by mouth TWICE DAILY. 120 Tab 5 hydrochlorothiazide (HCTZ, ORETIC) 25 MG Oral Tab TAKE 1 TABLET BY MOUTH DAILY 30 Tab 3 Lancets Does not apply Misc 1 Each by Does not apply route TWICE DAILY. Freestyle Lite 250.00Non Insulin Dependent Uses 2 times daily 100 Each 5 lisinopril (PRINIVIL, ZESTRIL) 40 MG Oral Tab Take 1 Tab by mouth DAILY. 30 Tab 5 meclizine (ANTIVERT) 25 MG Oral Tab Take 1 Tab by mouth THREE TIMES DAILY NEEDED for dizziness/vertigo. 60 Tab 1 metFORMIN HCL 1000 MG Oral Tab TAKE 1 TABLET BY MOUTH TWICE A DAY 60 Tab 1 metoprolol (LOPRESSOR) 100 MG Oral Tab Take 1 Tab by mouth TWICE DAILY. 60 Tab 5 Rosuvastatin Calcium (CRESTOR) 40 MG Oral Tab Take 1 Tab by mouth DAILY. 30 Tab 11 sitagliptin (JANUVIA) 25 MG Oral Tab Take 1 Tab by mouth DAILY. 30 Tab 1 No current facility-administered medications on file as of 05/14/2019. No Known Allergies Review of Systems: All remaining review of systems was negative. Objective: BP 140/82 (BP Location: Left arm, Patient Position: Sitting) Pulse 79 Temp 98.1 F (36.7 C) Ht 5' 1" (1.549 m) Wt 182 lb 8 oz (82.8 kg) LMP 2011 SpO2 98% BMI 34.48 kg/m2 General appearance: alert, .and in no distress. Neurological exam reveals abnormal neurological exam unchanged from prior examinations. ICD-9-CM ICD-10-CM 1. 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 Need for vaccination V05.9 Z23 AK TET, DIP & ACEL PERTUSSIS(DX Z23) 3. Vertigo 780.4 R42 REFER TO OTOLARYNGOLOGY (ENT) Patient Instructions 1. Take Januvia 25 mg once a day 2. Call in 1 week with sugar diary 3. Use Flonase 2 sprays in each nostril once a day 4. Schedule appointment with ENT 5. Call in 1 week with sugar diary 6. Follow up in 2 weeks Author: Sandrine Meléndez MD documented in this encounter Plan of Treatment Date Type Specialty Care Team Description 05/29/2019 Office Visit Family Practice Sandrine Meléndez MD [address] [place] [address] [phone] 07/31/2019 Ancillary Procedure Radiology 08/06/2019 Office Visit General Surgery Abdon Woodruff MD [address] [place] [address] Name Type Priority Associated Diagnoses Order Schedule REFER TO OTOLARYNGOLOGY Referral Routine Vertigo Expected: (ENT) 05/14/2019, Expires: 05/14/2020 Health Maintenance Due Date Last Done Comments DTaP/Tdap/Td Vaccines ( - 1969 Tdap) LUNG CANCER SCREENING 2013 Diabetic Eye Exam [...] exists PNEUMOCOCCAL 0-64 YRS Completed 10/16/2018, 06/07/2016 INFLUENZA [...] Problems Progress Blood Pressure Blood Pressure Essential 140/82 Kandi Alexander, < 140/90 hypertension, (05/14/2019 Dena, benign 1:28 PM EST) Note: Hypertension Care Plan Based [...] Educational Resources. record my blood pressure results. [employer] is safe and secure way for you [...] Educational Resources: National Heart, Lung, & Blood [place] http://nhlbi.nih.gov/hbp/index.html The DASH Diet Eating Plan http://www.nhlbi.nih.gov/health/health-topics/ topics/dash/ Academy of Nutrition & DIetetics http://eatright.org National Smoking Cessation Site http://smokefree.gov Blood Pressure < Blood Pressure 140/82 (05/14/2019 No Sandrine Meléndez, 140/90 1:28 PM EST) Note: This is an individualized [...] better. Weight loss vs. 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
--- OUTSIDE RECORDS SUMMARY | 2019-06-04 19:22 | XMS REPORT | Summary of Care ---
:1960 Author Organization [facility] Address [address] [place] [address] Care Team Providers Name Role Phone Sandrine Meléndez Primary Care Provider Reason for Visit Reason Comments Follow Up pt c/o cough headache dizznes and nuasous Encounter Details Date Type Department Care Team Description 04/19/2019 Office Visit Edilson Garza (Primary Dx); Practice MD Sandrine Type 2 diabetes with nephropathy (HCC); [address] [facility] Acute maxillary sinusitis, recurrence not specified [place], [place] [id number] [place] [address] [phone] Allergies No Known Allergiesdocumented as of this encounter (statuses as of 04/19/2019) Medications Medication Sig Dispensed Refills Start Date End Date Status Blood Glucose Monitoring Freestyle 100 Strip 5 01/02/2014 Active Suppl (BLOOD GLUCOSE TEST [place] Lite STRIPS STRP) 250.00 Non Insulin Dependent Uses 2 times daily Lancets Does not apply 1 Each by Does 100 Each 5 06/23/2017 Active Misc not apply route TWICE DAILY. Freestyle Lite 250.00 Non Insulin Dependent Uses 2 times daily Aspirin 81 MG Oral Tab Take 81 mg by 0 Active mouth DAILY. albuterol HFA (VENTOLIN) Take 2 Puffs by [...] under both 1 Tube 0 10/16/2018 Active 410764 UNIT/GM Apply breasts twice externally Cream daily [...] ORETIC) 25 MG Oral mouth DAILY. Tab fluticasone (FLONASE) 50 SHAKE LIQUID AND 1 Bottle 3 03/26/2019 Active MCG/ACT Nasal USE 2 SPRAYS IN SuspensionIndications: EACH NOSTRIL Acute URI DAILY metoprolol (LOPRESSOR) Take 1 Tab by 60 Tab 5 03/26/2019 Active 100 MG Oral Tab mouth TWICE DAILY. cefuroxime (CEFTIN) 500 Take 1 Tab by 20 Tab 0 04/19/2019 Active MG Oral Tab mouth EVERY TWELVE HOURS. meclizine (ANTIVERT) 25 Take 1 Tab by 60 Tab 1 04/19/2019 Active MG Oral Tab mouth THREE TIMES DAILY NEEDED for dizziness/vertig o. 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 On 12/16/2017, reflector localized right segmental mastectomy 2. On 01/04/2018, reexcision right segmental mastectomy Chemotherapy/Endocrine therapy: none Radiation Therapy: Adjuvant right breast irradiation- at [facility] under the care of Dr. Rangel, she was treated with a total dose of 5272 cGy which included a 1000 cGy boost to her right s egmental mastectomy cavity, treatment was initiated on 02/08/2018 and completed on 03/07/2018, a total of 20 fractions over 27 elapsed days. Clinical Trial: none Genetic/Mutation Testin10/11/2017 SurgiCount Medical test - Genes tested included APC, AVERY, [...] Surgeon: Dr. Abdon Woodruff Radiation Oncologist: At [place] Cancer Surveillance or other Recommended Tests (These [...] you may be interested in: National Cancer [place]: www.cancer.gov National Comprehensive Cancer Network: www.nccn.org [employer]: www.cancer.org ASCO, Doctor Approved Patient [...] Overview: Added automatically from request for surgery [id number] Type 2 diabetes with nephropathy 06/18/2016 BMI 36.0-36.9,adult 02/18/2012 Overview: sustained wt reduction with portion control and sustained routine exercise. Set realistic goal of 1# wt reduction /week set 10 week goals. Essential hypertension, benign 03/11/2011 Mixed hyperlipidemia 12/21/2005 CAD in [place] artery 12/16/2005 Overview: Cardiac catheterization 12/10/[address] Plascencia: placement of one drug-eluting ( Xience) stent for restenotic lesion within the segment of the TAXUS stent placed in 2005. Cardiac catheterization 12/16/[address] Plascencia: stenting of the mid left anterior descending documented as of this encounter (statuses as of 04/19/2019) Resolved Problems Problem Noted Date Resolved Date Type 2 diabetes mellitus without complication 06/07/2016 07/19/2016 Type 2 diabetes mellitus without complication 12/16/2005 06/07/2016 documented as of this encounter (statuses as of 04/19/2019) Immunizations Name Administration Dates Next Due Influenza [...] Sign Reading Time Taken Comments Blood Pressure 138/74 04/19/2019 10:40 AM EST Pulse 79 04/19/2019 10:40 AM EST Temperature 36.7 04/19/2019 10:40 AM C (98 EST F) Respiratory Rate - - Oxygen Saturation 97% 04/19/2019 10:40 AM RA at rest EST Inhaled Oxygen Concentration - - Weight 82.5 kg (181 lb 12.8 oz) 04/19/2019 10:40 AM EST Height - - Body Mass Index 34.35 04/12/2019 5:59 PM EST documented in this encounter Patient Instructions Patient InstructionsSandrine Meléndez MD - 04/19/2019 10:40 AM EST1. Take Ceftin 500 mg 2 times a day for 10 days 2. Continue Flonase nasal spray 3. Take Mucinex 600 mg 2 times a day 4. Take Meclizine 25 mg every 8 hours as needed for dizziness. Medication can be sleepy. You can try half a tablet if 1 tablet is too strong for you 5. Follow up in 1 week and as needed documented in this encounter Progress Notes Sandrine Meléndez MD - 04/19/2019 10:40 AM EST Patient: Edward hCe Date of Service: 04/19/2019 Subjective: Edward Che is a 59-y.o. female who presents for Chief Complaint Patient presents with Follow Up pt c/o cough headache dizznes and nuasous Patient comes follow up sinusitis Continues to complain of nasal congestion, postnasal drip, cough Also developed severe positional dizziness over last few days Symptoms are aggravated by turning head, more to the L. Very unsteady, nauseous Didn't take Ceftin as advised last visit: misunderstood instructions Past Medical History: Diagnosis Date Hyperlipidemia 12/21/2005 CAD 12/16/2005 DM 12/16/2005 Ductal carcinoma in situ (DCIS) of right breast 12/13/2017 Essential hypertension, benign 03/11/2011 GERD (gastroesophageal reflux disease) Outpatient Medications as of 04/19/2019 Medication Sig Dispense Refill albuterol HFA (VENTOLIN) 108 (90 Base) MCG/ACT Inhalation Aero Soln Take 2 Puffs by inhalation EVERY FOUR HOURS NEEDED (wheezing). 1 Inhaler 2 amLodipine (NORVASC) 10 MG Oral Tab Take 1 Tab by mouth DAILY. 30 Tab 5 Aspirin 81 MG Oral Tab Take 81 mg by mouth DAILY. Blood Glucose Monitoring Suppl (BLOOD GLUCOSE TEST STRIPS STRP) Freestyle [place] Lite 250.00Non Insulin Dependent Uses 2 times daily 100 Strip 5 fluticasone (FLONASE) 50 MCG/ACT Nasal Suspension SHAKE LIQUID AND USE 2 SPRAYS IN EACH NOSTRIL DAILY 1 Bottle 3 glyBURIDE (DIABETA) 5 MG Oral Tab Take 2 Tabs by mouth TWICE DAILY. 120 Tab 5 hydrochlorothiazide (HCTZ, ORETIC) 25 MG Oral Tab Take 1 Tab by mouth DAILY. 30 Tab 5 Lancets Does not apply Misc 1 Each by Does not apply route TWICE DAILY. Freestyle Lite 250.00Non Insulin Dependent Uses 2 times daily 100 Each 5 lisinopril (PRINIVIL, ZESTRIL) 40 MG Oral Tab Take 1 Tab by mouth DAILY. 30 Tab 5 metFORMIN HCL 1000 MG Oral Tab Take 1 Tab by mouth TWICE DAILY. 60 Tab 4 metoprolol (LOPRESSOR) 100 MG Oral Tab Take 1 Tab by mouth TWICE DAILY. 60 Tab 5 nystatin (MYCOSTATIN) 134057 UNIT/GM Apply externally Cream Apply under both breasts twice daily until rash clears. Call if not clear within 10 days. 1 Tube 0 Rosuvastatin Calcium (CRESTOR) 40 MG Oral Tab Take 1 Tab by mouth DAILY. 30 Tab 11 sitagliptin (JANUVIA) 25 MG Oral Tab Take 1 Tab by mouth DAILY. 30 Tab 1 No current facility-administered medications on file as of 04/19/2019. No Known Allergies Review of Systems: All remaining review of systems was negative. Objective: BP 138/74 | Pulse 79 | Temp 98 F (36.7 C) | Wt 181 lb 12.8 oz (82.5 kg) | LMP 08/21/2011 | SpO2 97% Comment: RA at rest | BMI 34.35 kg/m GENERAL: alert, fatigued HEAD: normocephalic, without obvious abnormality EYES: conjunctivae/corneas clear. Pupils equal, round, reactive to light. Equal ocular movements intact.Diuzziness with lateral gaze on both sides EARS: normal tympanic membranes and external ear canals, bilaterally Nasal exam - mucosal congestion. THROAT: Postnasal drip NECK: supple, symmetrical, trachea midline and mild anterior cervical adenopathy LUNGS: clear to auscultation bilaterally HEART: regular rate and rhythm, S1, S2 normal, no murmur, click, rub or gallop NEUROLOGIC: Mental status: Alert, oriented, thought content appropriate. Cranial nerves: Grossly intact Sensory: normal Motor: grossly normal Reflexes: 2+ and symmetric Coordination: Romberg test unsteady, with tendency to fall to the R, and finger to nose abnormal bilaterally Gait: unsteady ICD-9-CM ICD-10-CM 1. Vertigo 780.4 R42 2. Type 2 diabetes with nephropathy (HCC) 250.40 E11.21 GLYCOHEMOGLOBIN A1C 583.81 COMPREHENSIVE METABOLIC PANEL 3. Acute maxillary sinusitis, recurrence not specified 461.0 J01.00 Patient Instructions 1. Take Ceftin 500 mg 2 times a day for 10 days 2. Continue Flonase nasal spray 3. Take Mucinex 600 mg 2 times a day 4. Take Meclizine 25 mg every 8 hours as needed for dizziness. Medication can be sleepy. You can try half a tablet if 1 tablet is too strong for you 5. 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 Advised that I don't do technician terminal and repeater disability evaluation I am taking her out of work until next visit Author: Sandrine Meléndez MD documented in this encounter Plan of Treatment Date Type Specialty Care Team Description 05/01/2019 Office Visit Family Practice Sandrine Meléndez MD [address] [place] [address] [phone] 07/31/2019 Ancillary Procedure Radiology 08/06/2019 Office Visit General Surgery Abdon Woodruff MD [address] [place] [address] [phone] Name Type Priority Associated Diagnoses Date/Time GLYCOHEMOGLOBIN A1C Lab Routine Type 2 diabetes with 04/19/2019 11:39 AM nephropathy (HCC) EST COMPREHENSIVE METABOLIC Lab Routine Type 2 diabetes with 04/19/2019 11:39 AM PANEL nephropathy (HCC) EST Health Maintenance Due Date Last Done Comments [...] Problems Progress Blood Pressure Blood Pressure Essential 138/74 No Catherine, < 140/90 hypertension, (04/19/2019 [place], [place] 10:40 AM EST) Note: Hypertension Care Plan Based on [...] Educational Resources. record my blood pressure results. [place] is safe and secure way for you [...] Educational Resources: National Heart, Lung, & Blood [place] http://nhlbi.nih.gov/hbp/index.html The DASH Diet Eating Plan http://www.nhlbi.nih.gov/health/health-topics/ topics/dash/ Academy of Nutrition & DIetetics http://eatright.org National Smoking Cessation Site http://smokefree.gov Blood Pressure < Blood Pressure 138/74 (04/19/2019 Sandrine Peter 140/90 10:40 AM ESTDemario CAMPO Note: This is an individualized treatment (blood [...] 7.0 Diabetes 9.3 (01/06/2019 9:26 No Sandrine Meléndez AM EDTDemario CAMPO Note: This is an individualized treatment (diabetes control, HgbA1C) goal for Edward Che: Displayed above is your progress towards your HgbA1C goal. Your goal is shown above (on the left); your most recent HgbA1C is shown on the right. Note that lower numbers are better. Weight loss vs. 18 mo Lifestyle 8.2 (04/19/2019 10:40 AM No Sandrine Meléndez MD max (lbs) >= [...] of this encounter Implants Implanted Type Area Electrician Rectifier Maintenance Device Shelf Model / Identifier Expiration Date Serial / Lot 2.5 X 12 Alia - [id number] [facility] Monisha [employer] [id number] / Implanted: Qty: 1 on 12/10/2008 at [facility] [id number] / [id number] documented as of this encounter Results Not on filedocumented in this encounter Visit Diagnoses Diagnosis Vertigo - Primary Dizziness and giddiness Type 2 diabetes with nephropathy (HCC) Type II or unspecified type diabetes mellitus with renal manifestations, not stated as uncontrolled Acute maxillary sinusitis, recurrence not specified documented in this encounter Insurance Payer Benefit Plan / Subscriber ID Effective Dates Phone Address Type Group [employer] xxxxxxxxxxxx 2013-Present [employer] Name Account Type Relation to Date of Phone Billing Patient Address Edward Che Personal/Family 1960 [phone] (Home) [place], [place] [phone] [id number] (Work) documented as of this encounter
--- OUTSIDE RECORDS SUMMARY | 2019-06-04 19:22 | XMS REPORT | Summary of Care ---
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 nystatin (MYCOSTATIN) Apply under both 1 Tube 0 10/16/2018 Active 340478 UNIT/GM Apply breasts twice externally Cream daily [...] THREE TIMES DAILY NEEDED for dizziness/vertig o. 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 On 12/16/2017, reflector localized right segmental mastectomy 2. On 01/04/2018, reexcision right segmental mastectomy Chemotherapy/Endocrine therapy: none Radiation Therapy: Adjuvant right breast irradiation- at [facility] under the care of Dr. Rangel, she was treated with a total dose of 5272 cGy which included a 1000 cGy boost to her right s egmental mastectomy cavity, treatment was initiated on 02/08/2018 and completed on 03/07/2018, a total of 20 fractions over 27 elapsed days. Clinical Trial: none Genetic/Mutation Testin10/11/2017 [email or web address] test - Genes tested included APC, AVERY, BARD1, BMPR1A, BRCA1, BRCA2, BRIP1, CDH1, CDK4, CDKN2A, CHEK2 , EPCAM (large rearrangement only), MLH1, MSH2, MSH 6, MUTYH, NBN, PALB2, PMS2, PTEN, RAD51C, RAD51D, SMAD4, STK11, and TP53. Ongoing Treatment: none Cancer Care Team: (include institution of [facility]) Medical Oncologist: n/a Phone: n/a Nurse Practitioner: n/a Phone: n/a Nurse Navigator: Nusrat Mcdaniels RN Surgeon: Dr. Abdon Woodruff Radiation Oncologist: At [place] Cancer Surveillance or other Recommended Tests (These [...] you may be interested in: National Cancer [place]: www.cancer.gov National Comprehensive Cancer Network: www.nccn.org [place] [employer]: www.cancer.org ASCO, Doctor Approved Patient [...] Overview: Added automatically from request for surgery [id number] Type 2 diabetes with nephropathy 06/18/2016 BMI 36.0-36.9,adult 02/18/2012 Overview: sustained wt reduction with portion control and sustained routine exercise. Set realistic goal of 1# wt reduction /week set 10 week goals. Essential hypertension, benign 03/11/2011 Mixed hyperlipidemia 12/21/2005 CAD in [place] artery 12/16/2005 Overview: Cardiac catheterization 12/10/[address] Plascencia: placement of one drug-eluting ( Xience) stent for restenotic lesion within the segment of the TAXUS stent placed in 2005. Cardiac catheterization 12/16/[address] Plascencia: stenting of the mid left anterior descending documented as of this encounter (statuses as of 05/01/2019) Resolved Problems Problem Noted Date Resolved Date Type 2 diabetes mellitus without complication 06/07/2016 07/19/2016 Type 2 diabetes mellitus without complication 12/16/2005 06/07/2016 documented as of this encounter (statuses as of 05/01/2019) Immunizations Name Administration Dates Next Due Influenza [...] Sign Reading Time Taken Comments Blood Pressure 160/82 05/01/2019 1:34 PM EST Pulse 82 05/01/2019 1:34 PM EST Temperature 36.1 05/01/2019 1:34 PM C (97 EST F) Respiratory Rate - - Oxygen Saturation 96% 05/01/2019 1:34 PM EST Inhaled Oxygen Concentration - - Weight 82.9 kg (182 lb 11.2 oz) 05/01/2019 1:34 PM EST Height 154.9 cm (5' 1") 05/01/2019 1:34 PM EST Body Mass Index 34.52 05/01/2019 1:34 PM EST documented in this encounter Patient Instructions Patient InstructionsSandrine Meléndez MD - 05/01/2019 1:20 PM EST1. Schedule appointment with audiology 2. Bring sugar diary for the next visit 3. Schedule appointment with an eye doctor documented in this encounter Progress Notes Sandrine Meléndez MD - 05/01/2019 1:20 PM EST Patient: Edward Che Date of Service: 05/01/2019 Subjective: Edward Che is a 59-y.o. female who presents for Chief Complaint Patient presents with Follow Up vertigo, still having issues with earsright ear cant hear out of well Patient comes follow up sinusitis, positional vertigo Resolved nasal congestion, sinus pressure Continues to have dizziness, mostly with turning head to the R. Also - fulness and tinnitus in the R ear Meclizine helps. Didn't bring her sugar diary BP is elevated today Past Medical History: Diagnosis Date Hyperlipidemia 12/21/2005 CAD 12/16/2005 DM 12/16/2005 Ductal carcinoma in situ (DCIS) of right breast 12/13/2017 Essential hypertension, benign 03/11/2011 GERD (gastroesophageal reflux disease) Outpatient Medications as of 05/01/2019 Medication Sig Dispense Refill albuterol HFA (VENTOLIN) 108 (90 Base) MCG/ACT Inhalation Aero Soln Take 2 Puffs by inhalation EVERY FOUR HOURS NEEDED (wheezing). 1 Inhaler 2 amLodipine (NORVASC) 10 MG Oral Tab TAKE 1 TABLET BY MOUTH DAILY 90 Tab 1 Aspirin 81 MG Oral Tab Take 81 mg by mouth DAILY. Blood Glucose Monitoring Suppl (BLOOD GLUCOSE TEST STRIPS STRP) Freestyle Earth Lite 250.00Non Insulin Dependent Uses 2 times daily 100 Strip 5 cefuroxime (CEFTIN) 500 MG Oral Tab Take 1 Tab by mouth EVERY TWELVE HOURS. 20 Tab 0 fluticasone (FLONASE) 50 MCG/ACT Nasal Suspension SHAKE [...] 1 metFORMIN HCL 1000 MG Oral Tab Take 1 Tab by mouth TWICE DAILY. 60 Tab 4 metoprolol (LOPRESSOR) 100 MG Oral Tab Take 1 Tab by mouth TWICE DAILY. 60 Tab 5 nystatin (MYCOSTATIN) 226090 UNIT/GM Apply externally Cream Apply under both breasts twice daily until rash clears. Call if not clear within 10 days. 1 Tube 0 Rosuvastatin Calcium (CRESTOR) 40 MG Oral Tab Take 1 Tab by mouth DAILY. 30 Tab 11 sitagliptin (JANUVIA) 25 MG Oral Tab Take 1 Tab by mouth DAILY. 30 Tab 1 No current facility-administered medications on file as of 05/01/2019. No Known Allergies Review of Systems: All remaining review of systems was negative. Objective: BP 160/82 (BP Location: Left arm, Patient Position: Sitting) Pulse 82 Temp 97 F (36.1 C) Ht 5' 1" (1.549 m) Wt 182 lb 11.2 oz (82.9 kg) LMP 2011 SpO2 96% BMI 34.52 kg/m2 GENERAL: alert, no distress EYES: conjunctivae/corneas clear. Pupils equal, round, reactive to light. Equal ocular movements intact. EARS: normal tympanic membranes and external ear canals, bilaterally NOSE: Nares normal. Septum midline. Mucosa normal. No drainage or sinus tenderness. THROAT: lips, mucosa, and tongue normal: teeth and gums normal NECK: supple, symmetrical, trachea midline and no adenopathy LUNGS: clear to auscultation bilaterally HEART: regular rate and rhythm, S1, S2 normal, no murmur, click, rub or gallop NEUROLOGIC: Coordination: Romberg test positive with tendency to fall to the R and finger to nose abnormal on the right Gait: unsteady HGA1C - high, CMP - elevated sugar Component Latest Ref Rng & Units 04/19/2019 04/19/2019 11:39 AM 11:39 AM Sodium 134 - 145 mmol/L 140 Potassium 3.5 - 5.1 mmol/L 4.3 Chloride 98 - 107 mmol/L 105 CO2 22 - 30 mmol/L 24 Calcium 8.3 - 10.1 mg/dl 9.6 Albumin 3.5 - 5.0 g/dl 4.3 BUN 7 - 17 mg/dl 12 Creatinine 0.7 - 1.2 mg/dl 0.5 (L) Glucose (Lab) 70 - 99 mg/dl 125 (H) Protein,Total 6.3 - 8.2 g/dl 7.8 Total Bilirubin 0.0 - 1.1 MG/DL 0.7 AST 15 - 46 U/L 25 ALT 9 - 52 U/L 21 ALKALINE PHOSPHATASE 40 - 150 U/L 63 eGFR See Interpretation Below ml/min/1.73ml Sq >60 BUN/Creatinine Ratio 6 - 22 RATIO 24 (H) Anion Gap 3 - 11 mmol/L 11 A/G Ratio 0.8 - 2.0 ratio 1.2 Glycohemoglobin - POCT <=5.6 % 9.3 (H) I have recommended the following steps for improving diabetic care and outcome to her: home glucose monitoring emphasized, annual eye examinations at Ophthalmology discussed and glycohemoglobin and other lab monitoring discussed. A follow up visit will be scheduled in the near future to review and reinforce the importance of careful diabetic control to improve [facility] outcomes. ICD-9-CM ICD-10-CM 1. Vertigo 780.4 R42 REFER TO AUDIOLOGY 2. 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 Essential hypertension 401.9 I10 Patient Instructions 1. Schedule appointment with audiology 2. Bring sugar diary for the next visit 3. Schedule appointment with an eye doctor Follow up after the test Author: Sandrine Meléndez MD documented in this encounter Plan of Treatment Date Type Specialty Care Team Description 05/10/2019 Office Visit Audiology Zak Velez, AuD [address] [place] [address] 05/14/2019 Office Visit Family Practice Sandrine Meléndez MD [address] [place] [address] [phone] 07/31/2019 Ancillary Procedure Radiology 08/06/2019 Office Visit General Surgery Abdon Woodruff MD [address] [address] [phone] Name Type Priority Associated Diagnoses Order Schedule REFER TO AUDIOLOGY Referral Routine Vertigo Expected: 05/01/2019, Expires: 05/01/2020 REFER TO OPHTHALMOLOGY Referral Routine Uncontrolled type 2 Expected: diabetes mellitus with 05/01/2019, Expires: diabetic nephropathy, 05/01/2020 without long-term current use of insulin (HCC) Health Maintenance Due Date Last Done Comments LUNG CANCER SCREENING 2013 Diabetic Eye Exam 06/09/2017 06/09/2016 INFLUENZA VACCINE (#1) 2019 01/20/2018, 05/31/2017, 03/14/2015, Additional history exists HEMOGLOBIN A1C 07/20/2019 04/19/2019, 01/06/2019, 09/21/2018, Additional [...] Problems Progress Blood Pressure Blood Pressure Essential 160/82 No Catherine, < 140/90 hypertension, (05/01/2019 Dena, benign 1:34 PM EST) Note: Hypertension Care Plan Based [...] Educational Resources. record my blood pressure results. [facility] is safe and secure way for you [...] Educational Resources: National Heart, Lung, & Blood [place] http://nhlbi.nih.gov/hbp/index.html The DASH Diet Eating Plan http://www.nhlbi.nih.gov/health/health-topics/ topics/dash/ Academy of Nutrition & DIetetics http://eatright.org National Smoking Cessation Site http://smokefree.gov Blood Pressure < Blood Pressure 160/82 (05/01/2019 No Sandrine Meléndez, 140/90 1:34 PM EST) Note: This is an individualized [...] better. Weight loss vs. 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
--- OUTSIDE RECORDS SUMMARY | 2019-06-04 19:22 | XMS REPORT | Summary of Care ---
:1960 Author Organization [facility] Address [address] [place] [address] Care Team Providers Name Role Phone Sandrine Meléndez Primary Care Provider Reason for Visit Reason Comments Cough sore throat , cough with yellow/ whitish mucus , plugged ears , sinus pressure, chest feels heavy when breathing with body aches Encounter Details Date Type Department Care Team Description 04/12/2019 Office Visit [facility] MD Sandrine sinusitis (Primary Dx) [address] [place] [address] [place] [address] [phone] Allergies No Known Allergiesdocumented as of this encounter (statuses as of 04/12/2019) Medications Medication Sig Dispensed Refills Start End Date Status Date Blood Glucose Freestyle 100 Strip 5 Active Monitoring Suppl (BLOOD [place] Lite 4 GLUCOSE TEST STRIPS 250.00 Non [...] Inhalation Aero HOURS SolnIndications: Cough NEEDED (wheezing). metFORMIN HCL 1000 MG Take 1 Tab by 60 Tab 4 Active Oral Tab mouth TWICE 9 DAILY. Rosuvastatin Calcium Take 1 Tab by 30 Tab 11 Active (CRESTOR) 40 MG Oral mouth DAILY. 9 Tab amLodipine (NORVASC) 10 Take 1 Tab by 30 Tab 5 Active MG Oral Tab mouth DAILY. 9 nystatin (MYCOSTATIN) Apply under 1 Tube 0 Active 258170 UNIT/GM Apply both breasts 9 externally Cream twice daily until rash clears. Call if not clear within 10 days. sitagliptin (JANUVIA) Take 1 Tab by 30 Tab 1 Active 25 MG Oral Tab mouth DAILY. 9 glyBURIDE (DIABETA) 5 Take 2 Tabs by 120 Tab 5 Active MG Oral Tab mouth TWICE 9 DAILY. lisinopril (PRINIVIL, Take 1 Tab by 30 Tab 5 Active ZESTRIL) 40 MG Oral Tab mouth DAILY. 9 hydrochlorothiazide Take 1 Tab by 30 Tab 5 Active (HCTZ, ORETIC) 25 MG mouth DAILY. 9 Oral Tab fluticasone (FLONASE) SHAKE LIQUID 1 Bottle 3 Active 50 MCG/ACT Nasal AND USE 2 9 SuspensionIndications: SPRAYS IN EACH Acute URI NOSTRIL DAILY metoprolol (LOPRESSOR) Take 1 Tab by 60 Tab 5 Active 100 MG Oral Tab mouth TWICE 9 DAILY. benzonatate (TESSALON Take 1 Cap by 42 Cap 0 04/12/20 Discontinued PERLES) 100 MG Oral mouth THREE 9 19 CapIndications: Acute TIMES DAILY. URI amoxicillin-clavulanic Take 1 Tab by 20 Tab 0 04/12/20 Discontinued acid (AUGMENTIN) mouth TWICE 9 19 875-125 MG Oral DAILY. 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 On 12/16/2017, reflector localized right segmental mastectomy 2. On 01/04/2018, reexcision right segmental mastectomy Chemotherapy/Endocrine therapy: none Radiation Therapy: Adjuvant right breast irradiation- at [facility] under the care of Dr. Rangel, she was treated with a total dose of 5272 cGy which included a 1000 cGy boost to her right s egmental mastectomy cavity, treatment was initiated on 02/08/2018 and completed on 03/07/2018, a total of 20 fractions over 27 elapsed days. Clinical Trial: none Genetic/Mutation Testin10/11/2017 [employer] test - Genes tested included APC, AVERY, [...] Surgeon: Dr. Abdon Woodruff Radiation Oncologist: At [place] Cancer Surveillance or other Recommended Tests (These [...] you may be interested in: National Cancer [place]: www.cancer.gov National Comprehensive Cancer Network: www.nccn.org [place] Cancer Society: www.cancer.org ASCO, Doctor Approved Patient [...] Overview: Added automatically from request for surgery [id number] Type 2 diabetes with nephropathy 06/18/2016 BMI 36.0-36.9,adult 02/18/2012 Overview: sustained wt reduction with portion control and sustained routine exercise. Set realistic goal of 1# wt reduction /week set 10 week goals. Essential hypertension, benign 03/11/2011 Mixed hyperlipidemia 12/21/2005 CAD in [place] artery 12/16/2005 Overview: Cardiac catheterization 12/10/[address] Plascencia: placement of one drug-eluting ( Xience) stent for restenotic lesion within the segment of the TAXUS stent placed in 2005. Cardiac catheterization 12/16/[address] Plascencia: stenting of the mid left anterior descending documented as of this encounter (statuses as of 04/12/2019) Resolved Problems Problem Noted Date Resolved Date Type 2 diabetes mellitus without complication 06/07/2016 07/19/2016 Type 2 diabetes mellitus without complication 12/16/2005 06/07/2016 documented as of this encounter (statuses as of 04/12/2019) Immunizations Name Administration Dates Next Due Influenza [...] Sign Reading Time Taken Comments Blood Pressure 142/80 04/12/2019 5:59 PM EST Pulse 72 04/12/2019 5:59 PM EST Temperature 36.4 04/12/2019 5:59 PM EST C (97.6 F) Respiratory Rate - - Oxygen Saturation 99% 04/12/2019 5:59 PM EST Inhaled Oxygen Concentration - - Weight 82.6 kg (182 lb 3.2 oz) 04/12/2019 5:59 PM EST Height 154.9 cm (5' 1") 04/12/2019 5:59 PM EST Body Mass Index 34.43 04/12/2019 5:59 PM EST documented in this encounter Patient Instructions Patient InstructionsSandrine Meléndez MD - 04/12/2019 6:00 PM EST1. Take Ceftin 500 mg 2 times a day for 10 days 2. Take Mucinex 600 mg 2 times a day 3. Continue Flonase Nasal spray 2 sprays in each nostril once a day 4. Follow up in 1 week and as needed documented in this encounter Progress Notes Sandrine Meléndez MD - 04/12/2019 6:00 PM EST PATIENT: Edward Che : 1960 DATE OF SERVICE: 04/12/2019 Subjective SUBJECTIVE: Edward Che is a 59-y.o. female who presents for evaluation of nasal congestion, bilateral sinus pressure, bilateral ear pressure, postnasal drip and productive cough and sore throat. Symptoms began several days ago Was recently treated with Augmentin for sinus infection end of 02/2019 with some improvement, but bilateral ear congestion persisted Past history is significant for asthma and tobacco abuse. Past Medical History: Diagnosis Date Hyperlipidemia 12/21/2005 CAD 12/16/2005 DM 12/16/2005 Ductal carcinoma in situ (DCIS) of right breast 12/13/2017 Essential hypertension, benign 03/11/2011 GERD (gastroesophageal reflux disease) Family History Problem Relation Age of Onset Diabetes Mother Cancer Mother lungs or pleura? Breast Cancer Sister 50 Breast Cancer Maternal Aunt Ovarian Cancer Maternal Grandmother Current Outpatient Medications Medication Sig albuterol HFA (VENTOLIN) 108 (90 Base) MCG/ACT Inhalation Aero Soln Take 2 Puffs by inhalation EVERY FOUR HOURS NEEDED (wheezing). amLodipine (NORVASC) 10 MG Oral Tab Take 1 Tab by mouth DAILY. Aspirin 81 MG Oral Tab Take 81 mg by mouth DAILY. Blood Glucose Monitoring Suppl (BLOOD GLUCOSE TEST STRIPS STRP) Freestyle [place] Lite 250.00Non Insulin Dependent Uses 2 times daily fluticasone (FLONASE) 50 MCG/ACT Nasal Suspension SHAKE LIQUID AND USE 2 SPRAYS IN EACH NOSTRIL DAILY glyBURIDE (DIABETA) 5 MG Oral Tab Take [...] DAILY. metoprolol (LOPRESSOR) 100 MG Oral Tab Take 1 Tab by mouth TWICE DAILY. nystatin (MYCOSTATIN) 081213 UNIT/GM Apply externally Cream Apply under both breasts twice daily until rash clears. Call if not clear within 10 days. Rosuvastatin Calcium (CRESTOR) 40 MG Oral Tab Take 1 Tab by mouth DAILY. sitagliptin (JANUVIA) 25 MG Oral Tab Take 1 Tab by mouth DAILY. No current facility-administered medications for this visit. No Known Allergies Social History Socioeconomic History Marital status: Spouse name: Not on file Number of children: Not on file Years of education: Not on file Highest education level: Not on file Occupational History Not on file Social Needs Financial resource strain: Not on file Food insecurity: Worry: Not on file Inability: Not on file Transportation needs: Medical: Not on file Non-medical: Not on file Tobacco Use Smoking status: Smoker, Current Status Unknown Packs/day: 1.00 Years: 31.00 Pack years: 31.00 Types: Cigarettes Last attempt to quit: 01/28/2014 Years since quittin.2 Smokeless tobacco: Never Used Tobacco comment: / taking "pills" to help her Substance and Sexual Activity Alcohol use: No Drug use: No Sexual activity: Not Currently Lifestyle Physical activity: Days per week: Not on file Minutes per session: Not on file Stress: Not on file Relationships Social connections: Talks on phone: Not on file Gets together: Not on file Attends congregational service: Not on file Active member of club or organization: Not on file Attends meetings of clubs or organizations: Not on file Relationship status: Not on file Intimate partner violence: Fear of current or ex partner: Not on file Emotionally abused: Not on file Physically abused: Not on file Forced sexual activity: Not on file Other Topics Concern Back Care Not Asked Bike Helmet Not Asked Blood Transfusions No Caffeine Concern Not Asked Exercise Not Asked Hobby Hazards Not Asked International Travel Not Asked Service Not Asked Occupational Exposure Not Asked Seat Belt Not Asked Self-Exams Not Asked Sleep Concern Not Asked Special Diet Not Asked Stress Concern Not Asked Weight Concern Not Asked Social History Narrative 2 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 Objective OBJECTIVE: BP 142/80 (BP Location: Left arm, Patient Position: Sitting) | Pulse 72 | Temp 97.6 F (36.4 C) | Ht 5' 1" (1.549 m) | Wt 182 lb 3.2 oz (82.6 kg ) | LMP 08/21/2011 | SpO2 99% | BMI 34.43 kg/m GENERAL: alert, fatigued. HEENT: bilateral tympanic membrane normal without fluid or infection, neck has bilateral anterior cervical nodes enlarged, pharynx erythematous without exudate , bilaterally sinuses are tender, postnasal drip noted and nasal mucosa congested. LUNGS: clear to auscultation bilaterally. HEART: regular rate and rhythm, S1, S2 normal, no murmur, click, rub or gallop. ICD-9-CM ICD-10-CM 1. Other acute recurrent sinusitis Consider ENT consult 461.9 J01.81 Patient Instructions 1. Take Ceftin 500 mg 2 times a day for 10 days 2. Take Mucinex 600 mg 2 times a day 3. Continue Flonase Nasal spray 2 sprays in each nostril once a day 4. Follow up in 1 week and as needed Author: Sandrine Meléndez MD 04/12/2019 18:20 documented in this encounter Plan of Treatment Date Type Specialty Care Team Description 04/19/2019 Office Visit Family Practice Sandrine Meléndez MD [address] [place] [address] [phone] 07/31/2019 Ancillary Procedure Radiology 08/06/2019 Office Visit General Surgery Abdon Woodruff MD [address] [place] [address] [phone] Health Maintenance Due Date Last Done Comments [...] Problems Progress Blood Pressure Blood Pressure Essential 142/80 No Neiljunaraseli, < 140/90 hypertension, (04/12/2019 alexandria Fernandes 5:59 PM EST) Note: Hypertension Care Plan Based [...] Educational Resources: National Heart, Lung, & Blood [place] http://nhlbi.nih.gov/hbp/index.html The DASH Diet Eating Plan http://www.nhlbi.nih.gov/health/health-topics/ topics/dash/ Academy of Nutrition & DIetetics http://eatright.org National Smoking Cessation Site http://smokefree.gov Blood Pressure < Blood Pressure 142/80 (04/12/2019 No Sandrine Meléndez, 140/90 5:59 PM EST) Note: This is an individualized [...] 9.3 (01/06/2019 9:26 No Sandrine Meléndez AM EDT) Note: This is an individualized treatment (diabetes control, HgbA1C) goal for Edward Che: Displayed above is your progress towards your HgbA1C goal. Your goal is shown above (on the left); your most recent HgbA1C is shown on the right. Note that lower numbers are better. Weight loss vs. 18 mo Lifestyle 7.8 (04/12/2019 5:59 PM No Sandrine Meléndez MD max (lbs) [...] at the Health Maintenance sections of your [facility], Plan of Care, and any After Visit Summaries. Take all prescribed medications as Self-management No Sandrien Meléndez MD directed Note: This is an [...] of this encounter Implants Implanted Type Area Program Developer Device Shelf Model / Identifier Expiration Date Serial / Lot 2.5 X 12 Xience - [id number] LAD Mid [employer] [id number] / Implanted: Qty: 1 on 12/10/2008 at [facility] [id number] / [id number] documented as of this encounter Results Not on filedocumented in this encounter Visit Diagnoses Diagnosis Other acute recurrent sinusitis - Primary documented in this encounter Insurance Payer Benefit Plan / Subscriber ID Effective Dates Phone Address Type Group [employer] xxxxxxxxxxxx 2013-Present [employer] Guarantor Name Account Type Relation to Date of Phone Billing Patient Address Edward Che Personal/Family 1960 [phone] (Home) [place], [place] [phone] (Work) documented as of this encounter
--- OUTSIDE RECORDS SUMMARY | 2019-06-04 19:22 | XMS REPORT | Summary of Care ---
:1960 Author Organization [facility] Address [address] [place] [address] Care Team Providers Name Role Phone KingsjefferySandrine claros Primary Care Provider Reason for Visit Reason Comments Hearing Evaluation Dizziness Encounter Details Date Type Department Care Team Description 05/10/2019 Office Visit [facility] - Zak Velez, Dizziness and giddiness (Primary Dx); [place] [facility] Sensorineural hearing loss, bilateral; [address] Type B stiff middle [place] [address] [place] [address] [phone] Allergies No Known Allergiesdocumented as of this encounter (statuses as of 05/10/2019) Medications Medication Sig Dispensed Refills Start Date End Date Status Blood Glucose Monitoring Freestyle 100 Strip 5 01/02/2014 Active Suppl (BLOOD GLUCOSE TEST [place] Lite STRIPS STRP) 250.00 Non Insulin Dependent [...] Aero FOUR HOURS SolnIndications: Cough NEEDED (wheezing). Rosuvastatin Calcium Take 1 Tab by 30 Tab 11 10/16/2018 Active (CRESTOR) 40 MG Oral Tab mouth DAILY. nystatin (MYCOSTATIN) Apply under both 1 Tube 0 10/16/2018 Active 678793 UNIT/GM Apply breasts twice externally Cream daily [...] 04/19/2019 Active MG Oral Tab MOUTH DAILY metFORMIN HCL 1000 MG TAKE 1 TABLET BY 60 Tab 1 05/09/2019 Active Oral Tab MOUTH TWICE A DAY documented as of this encounter (statuses as of 05/10/2019) Active Problems Problem Noted Date Cancer Survivorship 02/08/2019 Overview: Survivorship Treatment Summary [facility] [place] [address] Patient Information: NAME: Edward Che : 1960 Diagnosis and Staging: Date of diagnosis: 09/29/2017 Cancer Type/histology 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 On 12/16/2017, reflector localized right segmental mastectomy 2. On 01/04/2018, reexcision right segmental mastectomy Chemotherapy/Endocrine therapy: none Radiation Therapy: Adjuvant right breast irradiation- at [facility] under the care of Dr. Rangel, she was treated with a total dose of 5272 cGy which included a 1000 cGy boost to her right s egmental mastectomy cavity, treatment was initiated on 02/08/2018 and completed on 03/07/2018, a total of 20 fractions over 27 elapsed days. Clinical Trial: none Genetic/Mutation Testin10/11/2017 [facility] test - Genes tested included APC, AVERY, [...] Surgeon: Dr. Abdon Woodruff Radiation Oncologist: At [place] Cancer Surveillance or other Recommended Tests (These [...] you may be interested in: National Cancer [place]: www.cancer.gov National Comprehensive Cancer Network: www.nccn.org [place] Cancer Society: www.cancer.org ASCO, Doctor Approved Patient [...] Overview: Added automatically from request for surgery [id number] Type 2 diabetes with nephropathy 06/18/2016 BMI 36.0-36.9,adult 02/18/2012 Overview: sustained wt reduction with portion control and sustained routine exercise. Set realistic goal of 1# wt reduction /week set 10 week goals. Essential hypertension, benign 03/11/2011 Mixed hyperlipidemia 12/21/2005 CAD in [place] artery 12/16/2005 Overview: Cardiac catheterization 12/10/[address] Plascencia: placement of one drug-eluting ( Xience) stent for restenotic lesion within the segment of the TAXUS stent placed in 2005. Cardiac catheterization 12/16/[address] Plascencia: stenting of the mid left anterior descending documented as of this encounter (statuses as of 05/10/2019) Resolved Problems Problem Noted Date Resolved Date Type 2 diabetes mellitus without complication 06/07/2016 07/19/2016 Type 2 diabetes mellitus without complication 12/16/2005 06/07/2016 documented as of this encounter (statuses as of 05/10/2019) Immunizations Name Administration Dates Next Due Influenza [...] of this encounter Last Filed Vital Signs Not on filedocumented in this encounter Progress Notes Zak Velez, AuD - 05/10/2019 3:00 PM ESTHistory: The patient was unaccompanied to today's comprehensive hearing evaluation. The patient's main concern is episodic dizziness and imbalance. Her symptoms can be provoked with fast unspecified head movements and reduced with use of Meclizine. Her dizziness is reportedly associated with true vertigo in the horizontal direction, which can reportedly last up to one hour. Additional otologic complaints include muffled hearing, intermittent right unilateral aural fullness, intermittent right unilateral tinnitus, and sensitivity to loud sounds. Medical history is significant for a recent bout of sinusitis. No further information was provided. Otoscopy: Otoscopy revealed clear canals and opaque tympanic membranes, AU. Tympanometry: Type B tympanograms were obtained bilaterally, suggesting no middle ear pressure or tympanic membrane mobility. Results were repeatable and consistent with otoscopy and recent sinusitis. Pure-tone Audiometry: Pure-tone test results were obtained using inserts. Testing revealed a moderate rising to mild sensorineural hearing loss in the right ear and a mild flat sensorineural hearing loss in the left ear. Pure-tone testing was completed with poor to fair reliability as the patient presented initial AC thresholds which were 30-40 dB worse than the SRT's and required repeated re-instruction. Reliability should be considered when interpreting results. Speech Audiometry: Speech Recognition Thresholds (SRT's) were obtained at 30 dB HL for the right ear and 25 dB HL for the left ear, which are consistent with the patient's pure- tone findings. Word Recognition Scores (WRS) revealed 100% discrimination at 70 dB for the right ear and 92% discrimination at 65 dB for the left ear for monosyllabic words presented at the patient's most comfortable listening level in a quiet environment, indicating excellent word recognition for monosyllabic words presented at a comfortable listening level in a quiet environment. Recommendations: 1. Follow-up with PCP regarding type B tympanograms and dizziness. 2. Repeat audiologic evaluation following medical management. 3. Recommend vestibular testing if dizziness symptoms do not improve. 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 record my blood pressure results. [employer] is safe and secure way for you [...] Educational Resources: National Heart, Lung, & Blood [place] http://nhlbi.nih.gov/hbp/index.html The DASH Diet Eating Plan http://www.nhlbi.nih.gov/health/health-topics/ [...] 18 mo Lifestyle 7.3 (05/01/2019 1:34 PM Sandrine Peter MD max (lbs) >= 10 EST) Note: [...] of this encounter Implants Implanted Type Area Senior Applications Developer Device Shelf Model / Identifier Expiration Date Serial / Lot 2.[address] 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 documented in this encounter Results Not on filedocumented in this encounter Visit Diagnoses Diagnosis Sensorineural hearing loss, bilateral Dizziness and giddiness 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
--- NOTE | 2019-06-04 19:41 | ED ---
Adult Trauma - HPI Summary HPI Summary: 59 y/o female presented to [facility] after she fell backward and hit her head on the floor at 1800 today, 06/04/19. She did not lose consciousness, but she complains of a VÁZQUEZ in the frontal and occipital regions. She also complains of cervical neck pain and was not ambulatory at the scene. Symptoms currently rated 8/10 in severity. Pain aggravated with movement. She denies extremity pain. She is not on blood thinners and has Hx of diabetes and HTN. 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 Negative : Loss of Consciousness - Additional Pertinent History Primary Care Physician: JASON - Allergy/Home Medications Allergies/Adverse Reactions: Allergies Allergy/AdvReac Type Severity Reaction Status Date / Time pregabalin [From Lyrica] Allergy Tingling Verified 02/21/19 11:18 PMH/Surg Hx/FS Hx/Imm Hx Endocrine/Hematology History: Reports: Hx Anticoagulant Therapy - 325mg asa daily, Hx Diabetes - DM II Cardiovascular History: Reports: Hx Hypercholesterolemia, Hx Hypertension - on meds, Hx Myocardial Infarction - with 2 cardiac stents Denies: Hx Pacemaker/ICD Respiratory History: Denies: Hx Asthma, Hx Chronic Obstructive Pulmonary Disease (COPD) History: Denies: Hx Dialysis, Hx Renal Disease Sensory History: Reports: Hx Contacts or Glasses Denies: Hx Hearing Aid Opthamlomology History: Reports: Hx Contacts or Glasses Neurological History: Reports: Other Neuro Impairments/Disorders - dizziness Denies: Hx Dementia, Hx Seizures Psychiatric History: Denies: Hx Panic Disorder, Hx Substance Abuse - Cancer History Cancer Type, Location and Year: ca breast, currently - Surgical History Surgical History: Yes Surgery Procedure, Year, and Place: cardiac stents x2- APPROVED BY DR LYLES FOR THIS MRI OF BRAIN IN NORMAL MODE ON 03/22/16- PT HAS NO INFO ON THE STENTS, IF WE EVER NEED TO SCAN HER IN THE FUTURE WE NEED THE INFORMATION. PT BELIEVES THEY WERE DONE AT [facility] 7 OR 8 YRS AGO - Immunization History Date of Influenza Vaccine: 2013 Infectious Disease History: No Infectious Disease History: Denies: Hx Clostridium Difficile, Hx Hepatitis, Hx Human Immunodeficiency Virus (HIV), Hx Shingles, Hx Tuberculosis, Traveled Outside the [place] in Last 30 Days - Family History Known Family History: Positive: Cardiac Disease, Hypertension, Diabetes, Other - sister: breast CA - Social History Alcohol Use: None Hx Substance Use: No Substance Use Type: Reports: None Hx Tobacco Use: Yes Smoking Status (MU): Heavy Every Day Tobacco Smoker Review of Systems Positive: Other - cervical neck pain; Negative: extremity pain Neurological: Other - no LOC Positive: Headache - frontal, occipital All Other Systems Reviewed And Are Negative: Yes Physical Exam - Summary Physical Exam Summary: Appearance: The patient is well-nourished in no acute distress and in no acute pain. Skin: The skin is warm and dry, and skin color reflects adequate perfusion. HEENT: The head is normocephalic and atraumatic. The pupils are equal and reactive. The conjunctivae are clear and without drainage. Nares are patent and without drainage. Mouth reveals moist mucous membranes, and the throat is without erythema and exudate. The external ears are intact. The ear canals are patent and without drainage. The tympanic membranes are intact. Neck: The neck is supple with full range of motion and non-tender. There are no carotid bruits. There is no neck vein distension. Respiratory: Chest is non-tender. Lungs are clear to auscultation and breath sounds are symmetrical and equal. Cardiovascular: Heart is regular rate and rhythm. There is no murmur or rub auscultated. There is no peripheral edema and pulses are symmetrical and equal. Abdomen: The abdomen is soft and non-tender. There are normal bowel sounds heard in all four quadrants and there is no organomegaly palpated. Musculoskeletal: There is no back tenderness noted. Extremities are non-tender with full range of motion. There is good capillary refill. There is no peripheral edema or calf tenderness elicited. Neurological: Patient is alert and oriented to person, place and time. The patient has symmetrical motor strength in all four extremities. Cranial nerves are grossly intact. Deep tendon reflexes are symmetrical and equal in all four extremities. Psychiatric: The patient has an appropriate affect and does not exhibit any anxiety or depression. Triage Information Reviewed: Yes Vital Signs On Initial Exam: Initial Vitals Temp Pulse Resp BP Pulse Ox 98.6 F 75 20 142/73 94 06/04/19 19:33 06/04/19 19:33 06/04/19 19:33 06/04/19 19:33 06/04/19 19:33 Vital Signs Reviewed: Yes - Shaquille Coma Scale Best Eye Response: 4 - Spontaneous Best Motor Response: 6 - Obeys Commands Best Verbal Response: 5 - Oriented Coma Scale Total: 15 Procedures - Sedation Patient Received Moderate/Deep Sedation with Procedure: No Diagnostics - Vital Signs Vital Signs Temp Pulse Resp BP Pulse Ox 06/04/19 19:33 98.6 F 75 20 142/73 94 - Laboratory Lab Statement: Any lab studies that have been ordered have been reviewed, and results considered in the medical decision making process. - CT C-Spine CT CT Interpretation Completed By: Radiologist Summary of CT Findings: IMPRESSION: No acute fracture. This report was reviewed by the ED physician. Brain CT CT Interpretation Completed By: Radiologist Summary of CT Findings: IMPRESSION: No acute intracranial abnormality. This report was reviewed by the ED physician. Re-Evaluation - Re-Evaluation First Eval Re-Evaluation Time: 21:30 Comment: We discussed results and plan for discharge. Adult Trauma Course/Dx - Course Course Of Treatment: Ms. Che presented with a severe headache after a head injury not involving lost consciousness and therefore CT scan was obtained. It was negative for any acute intracranial pathology or cervical fracture. I recommended symptomatic treatment and follow-up with her PCP. - Diagnoses Provider Diagnoses: Cervical strain, Head injury Discharge ED - Sign-Out/Discharge Documenting (check all that apply): Patient Departure - dc - Discharge Plan Condition: Stable Disposition: HOME Prescriptions: HYDROcodone/ACETAMIN 5-325 MG* [[place] 5-325 TAB*] 1 tab PO Q6H PRN #20 tab MDD 4 PRN Reason: Pain Patient Education Materials: Cervical Strain (ED), Head Injury (ED) Referrals: Sandrine Meléndez MD [Primary Care Provider] - 3 Days Additional Instructions: Follow up with your primary care physician in 1-3 days. If you experience new or worsening symptoms please return to the ER. - Billing Disposition and Condition Condition: STABLE Disposition: Home - Attestation Statements Document Initiated by Karey: Yes Documenting Scribe: Lola Gibson Provider For Whom Karey is Documenting (Include Credential): Dr. Goldy Nichols MD Scribe Attestation: Lola Elaine scribed for Dr. Goldy Nichols MD on 06/04/19 at 2139. Scribe Documentation Reviewed: Yes Provider Attestation: The documentation as recorded by the Lola rose accurately reflects the service I personally performed and the decisions made by me, Dr. Goldy Nichols MD Status of Scribe Document: Viewed
[2019-06-04] MEDS ORDERED: Ketorolac INJ* 30 MG/ML 1 ML VIAL IM ONE (21:05)
[2019-06-04 21:48] VITALS: BP 138/80
== END 2019-06-04 21:47 | disposition home or self-care (01) ==
LOC: ED 19:18
DX: S16.1XXA Strain of muscle, fascia and tendon at neck level, initial encounter (principal); S09.90XA Unspecified injury of head, initial encounter; R51 Headache; I10 Essential (primary) hypertension; E11.9 Type 2 diabetes mellitus without complications; Z79.01 Long term (current) use of anticoagulants; E78.00 Pure hypercholesterolemia, unspecified; I25.2 Old myocardial infarction; Z85.3 Personal history of malignant neoplasm of breast; F17.210 Nicotine dependence, cigarettes, uncomplicated; W19.XXXA Unspecified fall, initial encounter; Y92.9 Unspecified place or not applicable
CPT/HCPCS: 70450; 72125; 96372; 99282; J1885

== ENCOUNTER 2019-06-30 16:16 | Emergency (ER) | payer BC ==
[2019-06-30 16:21] VITALS: BP 141/73
--- OUTSIDE RECORDS SUMMARY | 2019-06-30 16:27 | XMS REPORT | Summary of Care ---
:1960 Author Organization [facility] Address [address] [place] [address] Care Team Providers Name Role Phone Sandrine Meléndez Primary Care Provider Reason for Visit Reason Comments Follow Up pt presents for follow up with diabetes Other pt presents for nausea, woke up this morning feeling like this, achey all over. Right ear ache. Encounter Details Date Type Department Care Team Description 06/29/2019 Office Visit [facility] Douglas Meléndez (Primary Dx); Practice MD Sandrine Type 2 diabetes with nephropathy ([facility]) [address] [place] [address] [place] [address] [phone] Allergies No Known Allergiesdocumented as of this encounter (statuses as of 06/29/2019) Medications Medication Sig Dispensed Refills Start Date End Date Status Blood Glucose Monitoring Freestyle 100 Strip 5 01/02/2014 Active Suppl (BLOOD GLUCOSE TEST [place] Lite STRIPS STRP) 250.00 Non Insulin Dependent [...] (CRESTOR) 40 MG Oral Tab mouth DAILY. glyBURIDE (DIABETA) 5 MG Take 2 Tabs by 120 Tab 5 11/16/2018 Active Oral Tab mouth TWICE DAILY. lisinopril (PRINIVIL, Take 1 Tab by 30 Tab 5 11/16/2018 Active ZESTRIL) 40 MG Oral Tab mouth DAILY. metoprolol (LOPRESSOR) Take 1 Tab by 60 Tab 5 03/26/2019 Active 100 MG Oral Tab mouth TWICE DAILY. meclizine (ANTIVERT) 25 Take 1 Tab by 60 Tab 1 04/19/2019 Active MG Oral Tab mouth THREE TIMES DAILY NEEDED for dizziness/vertig o. amLodipine (NORVASC) 10 TAKE 1 TABLET BY 90 Tab 1 04/19/2019 Active MG Oral Tab MOUTH DAILY metFORMIN HCL 1000 MG TAKE 1 TABLET BY 60 Tab 1 05/09/2019 Active Oral Tab MOUTH TWICE A DAY hydrochlorothiazide TAKE 1 TABLET BY 30 Tab 3 05/10/2019 Active (HCTZ, ORETIC) 25 MG Oral MOUTH DAILY Tab Glucose Blood In Vitro 1 Each by In 100 Each 1 05/14/2019 Active Strip Vitro route TWO TIMES DAILY BEFORE MEALS. E11.9 fluticasone (FLONASE) 50 SHAKE LIQUID AND 1 Bottle 3 05/14/2019 Active MCG/ACT Nasal USE 2 SPRAYS IN SuspensionIndications: EACH NOSTRIL Acute URI DAILY sitagliptin (JANUVIA) 50 Take 1 Tab by 30 Tab 1 05/29/2019 Active MG Oral Tab mouth DAILY. lidocaine transdermal 1 Patch by 30 Patch 0 06/13/2019 Active patch (LIDODERM) 5 % Topical route Apply externally Patch DAILY. 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 On 12/16/2017, reflector localized right segmental mastectomy 2. On 01/04/2018, reexcision right segmental mastectomy Chemotherapy/Endocrine therapy: none Radiation Therapy: Adjuvant right breast irradiation- at [facility] under the care of Dr. Rangel, she was treated with a total dose of 5272 cGy which included a 1000 cGy boost to her right s egmental mastectomy cavity, treatment was initiated on 02/08/2018 and completed on 03/07/2018, a total of 20 fractions over 27 elapsed days. Clinical Trial: none Genetic/Mutation Testin10/11/2017 [facility] test - Genes tested included APC, [...] Surgeon: Dr. Abdon Woodruff Radiation Oncologist: At [facility] Surveillance or other Recommended Tests (These [...] you may be interested in: National Cancer [place]: www.cancer.gov National Comprehensive Cancer Network: www.nccn.org [employer]: www.cancer.org ASCO, Doctor Approved Patient [...] Overview: Added automatically from request for surgery [id number] Type 2 diabetes with nephropathy 06/18/2016 BMI 36.0-36.9,adult 02/18/2012 Overview: sustained wt reduction with portion control and sustained routine exercise. Set realistic goal of 1# wt reduction /week set 10 week goals. Essential hypertension, benign 03/11/2011 Mixed hyperlipidemia 12/21/2005 CAD in [place] artery 12/16/2005 Overview: Cardiac catheterization 12/10/[address] Plascencia: placement of one drug-eluting ( Xience) stent for restenotic lesion within the segment of the TAXUS stent placed in 2005. Cardiac catheterization 12/16/[address] Plascencia: stenting of the mid left anterior descending documented as of this encounter (statuses as of 06/29/2019) Resolved Problems Problem Noted Date Resolved Date Type 2 diabetes mellitus without complication 06/07/2016 07/19/2016 Type 2 diabetes mellitus without complication 12/16/2005 06/07/2016 documented as of this encounter (statuses as of 06/29/2019) Immunizations Name Administration Dates Next Due Influenza [...] Sign Reading Time Taken Comments Blood Pressure 132/70 06/29/2019 9:08 AM EST Pulse 106 06/29/2019 9:08 AM EST Temperature 36.5 06/29/2019 9:08 AM C (97.7 EST F) Respiratory Rate - - Oxygen Saturation 97% 06/29/2019 9:08 AM EST Inhaled Oxygen Concentration - - Weight 82.4 kg (181 lb 11.2 oz) 06/29/2019 9:08 AM EST Height 154.9 cm (5' 1") 06/29/2019 9:08 AM EST Body Mass Index 34.33 06/29/2019 9:08 AM EST documented in this encounter Patient Instructions Patient InstructionsSandrine Meléndez MD - 06/29/2019 9:00 AM EST1. Schedule fasting blood tests end of 06/2019 2. Take Meclizine 25 mg every 8 hours as needed for dizziness. 3. Follow up in 1 week documented in this encounter Progress Notes Sandrine Meléndez MD - 06/29/2019 9:00 AM EST Patient: Edward Che Date of Service: 06/29/2019 Subjective: Edward Che is a 59-y.o. female who presents for Chief Complaint Patient presents with Follow Up pt presents for follow up with diabetes Other pt presents for nausea, woke up this morning feeling like this, achey all over. Right ear ache. Patient with history of intermittent vertigo Comes with complains of body aches, nausea, dry heaves, R ear ache started today in am No fever, no respiratory symptoms, no abdominal pain or diarrhea, no dysuria Diabetic Review of Systems - medication compliance: compliant all of the time, diabetic diet compliance: noncompliant some of the time, home glucose monitoring : is performed regularly, values are usually normal. Past Medical History: Diagnosis Date Hyperlipidemia 12/21/2005 CAD 12/16/2005 DM 12/16/2005 Ductal carcinoma in situ (DCIS) of right breast 12/13/2017 Essential hypertension, benign 03/11/2011 GERD (gastroesophageal reflux disease) Outpatient Medications as of 06/29/2019 Medication Sig Dispense Refill albuterol HFA (VENTOLIN) 108 (90 Base) MCG/ACT Inhalation Aero Soln Take 2 Puffs by inhalation EVERY FOUR HOURS NEEDED (wheezing). 1 Inhaler 2 amLodipine (NORVASC) 10 MG Oral Tab TAKE 1 TABLET BY MOUTH DAILY 90 Tab 1 Aspirin 81 MG Oral Tab Take 81 mg by mouth DAILY. Blood Glucose Monitoring Suppl (BLOOD GLUCOSE TEST STRIPS STRP) Freestyle [place] Lite 250.00Non Insulin Dependent Uses 2 times daily 100 Strip 5 fluticasone (FLONASE) 50 MCG/ACT Nasal Suspension SHAKE LIQUID AND USE 2 SPRAYS IN EACH NOSTRIL DAILY 1 Bottle 3 Glucose Blood In Vitro Strip 1 Each by In Vitro route TWO TIMES DAILY BEFORE MEALS. E11.9 100 Each 1 glyBURIDE (DIABETA) 5 MG Oral Tab Take 2 Tabs by mouth TWICE DAILY. 120 Tab 5 hydrochlorothiazide (HCTZ, ORETIC) 25 MG Oral Tab TAKE 1 TABLET BY MOUTH DAILY 30 Tab 3 Lancets Does not apply Misc 1 Each by Does not apply route TWICE DAILY. Freestyle Lite 250.00Non Insulin Dependent Uses 2 times daily 100 Each 5 lidocaine transdermal patch (LIDODERM) 5 % Apply externally Patch 1 Patch by Topical route DAILY. 12 hours on and 12 hours off 30 Patch 0 lisinopril (PRINIVIL, ZESTRIL) 40 MG Oral Tab [...] mouth DAILY. 30 Tab 11 sitagliptin (JANUVIA) 50 MG Oral Tab Take 1 Tab by mouth DAILY. 30 Tab 1 No current facility-administered medications on file as of 06/29/2019. No Known Allergies Review of Systems: All remaining review of systems was negative. Objective: BP 132/70 (BP Location: Right arm, Patient Position: Sitting) Pulse 106 Temp 97.7 F (36.5 C) Ht 5' 1" (1.549 m) Wt 181 lb 11.2 oz (82.4 kg) LMP SpO2 97% BMI 34.33 kg/m2 GENERAL: alert, fatigued EYES: conjunctivae/corneas clear. Pupils equal, round, reactive [...] normal, no murmur, click, rub or gallop ABDOMEN: soft, non-tender. Bowel sounds normal. No masses, no organomegaly NEUROLOGIC: Positional vertigo. No focal findings ICD-9-CM ICD-10-CM 1. Nausea Vertigo vs viral infection 787.02 R11.0 2. Type 2 diabetes with nephropathy (HCC) 250.40 E11.21 COMPREHENSIVE METABOLIC PANEL 583.81 LIPID PROFILE GLYCOHEMOGLOBIN A1C Patient Instructions 1. Schedule fasting blood tests end of 06/2019 2. Take Meclizine 25 mg every 8 hours as needed for dizziness. 3. Follow up in 1 week Author: Sandrine Meléndez MD documented in this encounter Plan of Treatment Date Type Specialty Care Team Description 07/03/2019 Occ Med Workers Comp Occupational Medicine Savanah Gonsales MD [address] [place] [address] 07/06/2019 Office Visit Family Practice Sandrine Meléndez MD [facility] [place] [address] 07/19/2019 Lab Internal Medicine 07/31/2019 Ancillary Procedure Radiology 08/06/2019 Office Visit General Surgery Abdon Woodruff MD [address] [place] [address] Name Type Priority Associated Diagnoses Order Schedule COMPREHENSIVE METABOLIC Lab Routine Type 2 diabetes with Expected: 2019 PANEL nephropathy (HCC) (Approximate), Expires: 06/29/2020 LIPID PROFILE Lab Routine Type 2 diabetes with Expected: 06/29/2019 nephropathy (HCC) (Approximate), Expires: 06/29/2020 GLYCOHEMOGLOBIN A1C Lab Routine Type 2 diabetes with Expected: 06/29/2019 nephropathy (HCC) (Approximate), Expires: 06/29/2020 Health Maintenance Due Date Last Done Comments [...] Problems Progress Blood Pressure Blood Pressure Essential 132/70 No Catherine, < 140/90 hypertension, (06/29/2019 Dena, [place] 9:08 AM EST) Note: Hypertension Care Plan Based [...] Educational Resources: National Heart, Lung, & Blood [place] http://nhlbi.nih.gov/hbp/index.html The DASH Diet Eating Plan http://www.nhlbi.nih.gov/health/health-topics/ topics/dash/ Academy of Nutrition & DIetetics http://eatright.org National Smoking Cessation Site http://smokefree.gov Blood Pressure < Blood Pressure 132/70 (06/29/2019 No Sandrine Meléndez, 140/90 9:08 AM EST) Note: This is an individualized [...] better. Weight loss vs. 18 mo Lifestyle 8.3 (06/29/2019 9:08 AM No Sandrine Meléndez MD max (lbs) [...] of this encounter Implants Implanted Type Area Training And Development Assistant Device Shelf Model / Identifier Expiration Date Serial / Lot 2.5 X 12 Xience - [id number] LAD Mid [employer] [id number] / Implanted: Qty: 1 on 12/10/2008 at [facility] [id number] / [id number] documented as of this encounter Results Not on filedocumented in this encounter Visit Diagnoses Diagnosis Type 2 diabetes with nephropathy (HCC) Type II or unspecified type diabetes mellitus with renal manifestations, not stated as uncontrolled Nausea Nausea alone documented in this encounter Insurance Payer Benefit Plan / Subscriber ID Effective Dates Phone Address Type Group [employer] xxxxxxxxxxxx 2013-Present [employer] Guarant[employer] Name Account Type Relation to Date of Phone Billing Patient Address Edward Che Personal/Family 1960 [phone] (Home) [place], [place] [phone] [id number] (Work) documented as of this encounter
--- NOTE | 2019-06-30 16:47 | ED ---
Lower Extremity - HPI Summary HPI Summary: Patient is a 59 y/o F presenting to [facility] with complaints of left knee pain. She states that she fell backwards at her job three weeks ago and experienced onset of knee pain. Patient had a worsening of pain this morning and reports difficulty bearing weight on her left leg. She has no fever as temperature is 97 F. Patient has not seen an orthopedic doctor yet. On triage, pain is rated 10 /10. Home medications and allergies are reviewed. - History of Current Complaint Chief Complaint: EDExtremityLower Stated Complaint: LEFT KNEE PAIN PER PT Time Seen by Provider: 06/30/19 16:39 Hx Obtained From: Patient Hx Last Menstrual Period: [employer]OR Mechanism Of Injury: Fall From A Standing Position Onset of Pain: Prior to Arrival Onset/Duration: Still Present Severity Initially: Mild Severity Currently: Severe Pain Intensity: 10 Pain Scale Used: 0-10 Numeric Timing: Constant Location: Is Discrete @ - left knee Associated Signs And Symptoms: Positive: Knee Pain - left Aggravating Factor(s): Weight Bearing - Allergies/Home Medications Allergies/Adverse Reactions: Allergies Allergy/AdvReac Type Severity Reaction Status Date / Time pregabalin [From Lyrica] Allergy Tingling Verified 06/30/19 16:19 PMH/Surg Hx/FS Hx/Imm Hx Endocrine/Hematology History: Reports: Hx Anticoagulant Therapy - 325mg asa daily, Hx Diabetes - DM II Cardiovascular History: Reports: Hx Hypercholesterolemia, Hx Hypertension - on meds, Hx Myocardial Infarction - with 2 cardiac stents Denies: Hx Pacemaker/ICD Respiratory History: Denies: Hx Asthma, Hx Chronic Obstructive Pulmonary Disease (COPD) History: Denies: Hx Dialysis, Hx Renal Disease Sensory History: Reports: Hx Contacts or Glasses Denies: Hx Hearing Aid Opthamlomology History: Reports: Hx Contacts or Glasses Neurological History: Reports: Other Neuro Impairments/Disorders - dizziness Denies: Hx Dementia, Hx Seizures Psychiatric History: Denies: Hx Panic Disorder, Hx Substance Abuse - Cancer History Cancer Type, Location and Year: ca breast, currently - Surgical History Surgery Procedure, Year, and Place: cardiac stents x2- APPROVED BY DR LYLES FOR THIS MRI OF BRAIN IN NORMAL MODE ON 03/22/16- PT HAS NO INFO ON THE STENTS, IF WE EVER NEED TO SCAN HER IN THE FUTURE WE NEED THE INFORMATION. PT BELIEVES THEY WERE DONE AT [facility] 7 OR 8 YRS AGO - Immunization History Date of Tetanus Vaccine: 2019 Date of Influenza Vaccine: 2013 Infectious Disease History: No Infectious Disease History: Denies: Hx Clostridium Difficile, Hx Hepatitis, Hx Human Immunodeficiency Virus (HIV), Hx Shingles, Hx Tuberculosis, Traveled Outside the [place] in Last 30 Days - Family History Known Family History: Positive: Cardiac Disease, Hypertension, Diabetes, Other - sister: breast CA - Social History Alcohol Use: None Hx Substance Use: No Substance Use Type: Reports: None Hx Tobacco Use: Yes Smoking Status (MU): Heavy Every Day Tobacco Smoker Review of Systems Negative: Fever - She has no fever as temperature is 97 F. Positive: Myalgia - left knee pain All Other Systems Reviewed And Are Negative: Yes Physical Exam - Summary Physical Exam Summary: VITAL SIGNS: Reviewed. GENERAL: Patient is a well-developed and nourished FEMALE who is lying comfortable in the stretcher. Patient is not in any acute respiratory distress. HEAD AND FACE: No signs of trauma. No ecchymosis, hematomas or skull depressions. No sinus tenderness. EYES: PERRLA, EOMI x 2, No injected conjunctiva, no nystagmus. EARS: Hearing grossly intact. Ear canals and tympanic membranes are within normal limits. MOUTH: Oropharynx within normal limits. NECK: Supple, trachea is midline, no adenopathy, no JVD, no carotid bruit, no c- spine tenderness, neck with full ROM. CHEST: Symmetric, no tenderness at palpation. LUNGS: Clear to auscultation bilaterally. No wheezing or crackles. CVS: Regular rate and rhythm, S1 and S2 present, no murmurs or gallops appreciated. ABDOMEN: Soft, non-tender. No signs of distention. No rebound, no guarding, and no masses palpated. Bowel sounds are normal. EXTREMITIES: Patient with decreased ROM and tenderness at left knee; no erythema , no edema, no hematoma, no cyanosis or clubbing. Patient has good pulses and capillary refill. NEURO: Alert and oriented x 3. No acute neurological deficits. Speech is normal and follows commands. SKIN: Dry and warm. Triage Information Reviewed: Yes Vital Signs On Initial Exam: Initial Vitals Temp Pulse Resp BP Pulse Ox 97.0 F 76 16 141/73 97 06/30/19 16:18 06/30/19 16:18 06/30/19 16:18 06/30/19 16:18 06/30/19 16:18 Vital Signs Reviewed: Yes Procedures - Sedation Patient Received Moderate/Deep Sedation with Procedure: No Diagnostics - Vital Signs Vital Signs Temp Pulse Resp BP Pulse Ox 06/30/19 16:18 97.0 F 76 16 141/73 97 - Laboratory Lab Statement: Any lab studies that have been ordered have been reviewed, and results considered in the medical decision making process. - Radiology LEFT KNEE X-RAY Radiology Interpretation Completed By: Radiologist Summary of Radiographic Findings: FINDINGS: There are vascular calcifications. There is no large effusion. The bone. mineralization is within normal limits. No fracture is identified. Anatomic alignment is. maintained. The joint spaces are preserved. THIS REPORT WAS REVIEWED BY ED PHYSICIAN. Lower Extremity Course/Dx - Course Assessment/Plan: Patient is a 59 y/o F presenting to [facility] with complaints of left knee pain. She states that she fell backwards at her job three weeks ago and experienced onset of knee pain. Patient had a worsening of pain this morning and reports difficulty bearing weight on her left leg. Patient has not seen an orthopedic doctor yet. In the ED course the patient was given Bradley and Toradol for the pain. X-ray left knee impression: No fracture dislocation. The patient was given a knee immobilizer, crutches and ibuprofen and Bradley for pain. The patient will be discharged home with follow-up with orthopedics. Patient understands and agrees. The patient is hemodynamically stable alert oriented 3. - Diagnoses Provider Diagnoses: Knee pain, left Discharge ED - Sign-Out/Discharge Documenting (check all that apply): Patient Departure - discharge - Discharge Plan Condition: Stable Disposition: HOME Patient Education Materials: Knee Pain (ED) Referrals: Jaleel Rosas MD [Medical Doctor] - 3 Days Sandrine Meléndez MD [Primary Care Provider] - 3 Days Additional Instructions: PLEASE RETURN TO ED FOR ANY NEW OR CONCERNING SYMPTOMS. PLEASE FOLLOW UP WITH YOUR PRIMARY CARE PHYSICIAN AND ORTHOPEDICS WITHIN THREE DAYS. - Billing Disposition and Condition Condition: STABLE Disposition: Home - Attestation Statements Document Initiated by Scribe: Yes Documenting Scribe: NOLAN GHOTRA Provider For Whom Scribe is Documenting (Include Credential): ELIZABETH OLVERA MD Scribe Attestation: NOLAN Elaine, scribed for ELIZABETH OLVERA MD on 06/30/19 at 1857. Scribe Documentation Reviewed: Yes Provider Attestation: The documentation as recorded by the scribe, NOLAN GHOTRA accurately reflects the service I personally performed and the decisions made by me, ELIZABETH OLVERA MD Status of Scribe Document: Viewed
[2019-06-30] MEDS ORDERED: Ketorolac *IM* INJ* 60 MG/2 ML VIAL IM ONE (16:49)
[2019-06-30] MEDS ORDERED: HYDROcodone/ACETAMIN 5-325 MG* 1 TAB PO ONE (16:49)
== END 2019-06-30 18:14 | disposition home or self-care (01) ==
LOC: ED 16:16
DX: M25.562 Pain in left knee (principal); E11.9 Type 2 diabetes mellitus without complications; E78.00 Pure hypercholesterolemia, unspecified; I10 Essential (primary) hypertension; I25.2 Old myocardial infarction; F17.200 Nicotine dependence, unspecified, uncomplicated; C50.919 Malignant neoplasm of unspecified site of unspecified female breast; Z95.5 Presence of coronary angioplasty implant and graft; Z79.82 Long term (current) use of aspirin; Z79.899 Other long term (current) drug therapy; Z88.8 Allergy status to other drugs, medicaments and biological substances
CPT/HCPCS: 99282; J1885

== ENCOUNTER 2024-04-15 08:29 | Inpatient (IN) ==
[2024-04-15] MEDS: Iodixanol 320 (CONTRAST) 100 ML SDV IV ONE (08:43)
[2024-04-15 09:04] LABS: ABS Basophils 0.1 10^3/uL (0.0-0.1); ABS Eosinophils 0.2 10^3/uL (0.0-0.5); ABS Lymphocytes 1.6 10^3/uL (1.0-4.8); ABS Monocytes 0.4 10^3/uL (0.0-0.9); ABS Neutrophils 3.3 10^3/uL (1.5-7.6); ABS Nucleated RBC 0.01 10^3/ul; Eosinophil % 2.8 %; Hematocrit 45.6 % (35-45); Hemoglobin 15.4 g/dL (11.5-14.3); Lymphocyte % 28.9 %; Mean Corpuscular Hemoglobin 27.8 pg (27-33); Mean Corpuscular Hgb Conc 33.8 g/dL (31-36); Mean Corpuscular Volume 82.5 fL (80-97); Mean Platelet Volume 8.1 fL (7.5-11.2); Nucleated Red Blood Cells % 0.1 %/100WBC (0.0-0.8); Platelet Count 229 10^3/uL (150-450); Red Blood Count 5.53 10^6/uL (3.63-4.92); White Blood Count 5.5 10^3/uL (3.8-11.8)
[2024-04-15 09:07] LABS: INR 1.04 (0.85-1.14)
[2024-04-15] MEDS ORDERED: Sulfur Hexaflouride MICROSPHR 25 MG VIAL IV PRN (10:02)
[2024-04-15 10:03] LABS: ALT 12 U/L (7-52); Albumin 3.7 g/dL (3.2-5.2); Albumin/Globulin Ratio 1.4 (1-3); Alkaline Phosphatase 101 U/L (35-149); Anion Gap 11 mmol/L (2-16); Blood Urea Nitrogen 11 mg/dL (6-24); CO2 Carbon Dioxide 24 mmol/L (22-32); Calcium 8.7 mg/dL (8.6-10.3); Chloride 100 mmol/L (101-111); Cholesterol 278 mg/dL; Globulin 2.7 g/dL (2-4); Glucose 294 mg/dL (70-100); HDL Cholesterol 43.4 mg/dL; LDL Cholesterol 206 mg/dL; Sodium 135 mmol/L (135-145); Total Bilirubin 0.9 mg/dL (0.2-1.0); Total Protein 6.4 g/dL (6.4-8.9); Triglycerides 143 mg/dL; eGFR CKD-EPI 103.4 (>60)
[2024-04-15] MEDS ORDERED: Dextrose 50% Syringe 50 ml 25 GM/50 ML SYRINGE IV PUSH PRN (10:53)
[2024-04-15 11:08] LABS: Urine Appearance Clear; Urine Bacteria Absent /HPF (Absent); Urine Bilirubin Negative (Negative); Urine Blood Negative (Negative); Urine Color Light-Yellow; Urine Glucose 4+ (>=1000 mg/dL) (Negative); Urine Ketones Negative (Negative); Urine Nitrite Negative (Negative); Urine Protein 1+ (>=30 mg/dL) (Negative); Urine Red Blood Cell Trace(0-2/hpf) /HPF (0-Trace); Urine Urobilinogen Negative (Negative); Urine White Blood Cell Absent /HPF (0-Trace); Urine pH 7.5 (5.0-8.0)
[2024-04-15 11:13] LABS: TSH Ultra Thyroid Stim Horm 1.68 mcIU/mL (0.34-5.60)
[2024-04-15 11:24] LABS: Folate > 20.00 ng/mL (5.90-24.80)
[2024-04-15 11:25] LABS: Vitamin B12 778 pg/mL (180-914)
[2024-04-15] MEDS: Lactated Ringers 1000 ml BAG 1,000 ML IV SCH (12:48)
[2024-04-15] MEDS ORDERED: Lorazepam PYXIS KEY PRN (15:10)
[2024-04-15] MEDS: LORazepam 2 mg VIAL 1 ml IV PUSH ONE (17:19)
[2024-04-15 19:06] LABS: Direct Bilirubin Redraw 0.1 mg/dL (0.1-0.5); Potassium Redraw 3.9 mmol/L (3.5-5.0)
[2024-04-15] MEDS: Enoxaparin 40 MG/0.4 ML SYR SUBCUT SCH (20:52)
[2024-04-16 09:20] LABS: ABS Basophils 0.1 10^3/uL (0.0-0.1); ABS Eosinophils 0.1 10^3/uL (0.0-0.5); ABS Lymphocytes 1.4 10^3/uL (1.0-4.8); ABS Monocytes 0.3 10^3/uL (0.0-0.9); ABS Neutrophils 3.6 10^3/uL (1.5-7.6); Eosinophil % 2.5 %; Hematocrit 46.6 % (35-45); Hemoglobin 15.6 g/dL (11.5-14.3); Lymphocyte % 25.7 %; Mean Corpuscular Hemoglobin 27.6 pg (27-33); Mean Corpuscular Hgb Conc 33.5 g/dL (31-36); Mean Corpuscular Volume 82.6 fL (80-97); Mean Platelet Volume 8.5 fL (7.5-11.2); Nucleated Red Blood Cells % 0.1 %/100WBC (0.0-0.8); Platelet Count 228 10^3/uL (150-450); Red Blood Count 5.65 10^6/uL (3.63-4.92); Red Cell Distribution Width 15.2 % (12-17); White Blood Count 5.6 10^3/uL (3.8-11.8)
[2024-04-16 09:38] LABS: Calcium 8.8 mg/dL (8.6-10.3); Creatinine, Serum 0.51 mg/dL (0.51-0.95); eGFR CKD-EPI 102.9 (>60)
[2024-04-17 06:57] LABS: Hematocrit 45.8 % (35-45); Hemoglobin 15.5 g/dL (11.5-14.3); Mean Corpuscular Hemoglobin 28.2 pg (27-33); Mean Corpuscular Hgb Conc 33.9 g/dL (31-36); Mean Corpuscular Volume 83.1 fL (80-97); Mean Platelet Volume 8.2 fL (7.5-11.2); Platelet Count 211 10^3/uL (150-450); Red Blood Count 5.51 10^6/uL (3.63-4.92); Red Cell Distribution Width 14.9 % (12-17); White Blood Count 4.4 10^3/uL (3.8-11.8)
[2024-04-17 07:07] LABS: Calcium 8.7 mg/dL (8.6-10.3); Creatinine, Serum 0.52 mg/dL (0.51-0.95); Potassium 3.8 mmol/L (3.5-5.0); eGFR CKD-EPI 102.4 (>60)
[2024-04-17] MEDS: Aspirin EC 81 mg TAB.EC (enteric coated) PO SCH (10:07)
[2024-04-18 05:33] VITALS: BP 178/77
== END 2024-04-18 09:23 | DRG 66 ==
LOC: ED 08:29 → EDHOLD 08:29 → MEDTELE 15:28 → SUATTDRO 04-16 12:00
PROVIDERS: ADMIT Hospitalist; ATTEND Student in an Organized Health Care Education/Training Program

== ENCOUNTER 2024-04-18 10:33 | Inpatient (IN) ==
[2024-04-18] MEDS ORDERED: Senna TAB 8.6 mg TAB PO PRN (12:49)
[2024-04-18] MEDS ORDERED: Magnesium Hydroxide LIQ 30 ML UDC PO PRN (12:49)
[2024-04-18] MEDS ORDERED: Dextrose 50% Syringe 50 ml 25 GM/50 ML SYRINGE IV PUSH PRN (12:58)
[2024-04-19] MEDS: Aspirin EC 81 mg TAB.EC (enteric coated) PO SCH (08:00)
[2024-04-20 06:54] LABS: ABS Basophils 0.1 10^3/uL (0.0-0.1); ABS Eosinophils 0.2 10^3/uL (0.0-0.5); ABS Monocytes 0.4 10^3/uL (0.0-0.9); ABS Neutrophils 2.8 10^3/uL (1.5-7.6); Hematocrit 46.5 % (35-45); Hemoglobin 15.5 g/dL (11.5-14.3); Lymphocyte % 36.3 %; Mean Corpuscular Hemoglobin 27.8 pg (27-33); Mean Corpuscular Hgb Conc 33.4 g/dL (31-36); Mean Corpuscular Volume 83.1 fL (80-97); Mean Platelet Volume 8.5 fL (7.5-11.2); Platelet Count 229 10^3/uL (150-450); Red Blood Count 5.59 10^6/uL (3.63-4.92); Red Cell Distribution Width 15.1 % (12-17); White Blood Count 5.5 10^3/uL (3.8-11.8)
[2024-04-20 07:17] LABS: Albumin 3.8 g/dL (3.2-5.2); Albumin/Globulin Ratio 1.7 (1-3); Creatinine, Serum 0.58 mg/dL (0.51-0.95); Globulin 2.2 g/dL (2-4); Potassium 3.9 mmol/L (3.5-5.0); eGFR CKD-EPI 99.7 (>60)
[2024-04-20] MEDS: Heparin 5000 UNITS/ML 1 mL VIAL SUBCUT SCH (09:10)
[2024-04-21] MEDS: Influenza Vaccine *TRI* 2024-25* 0.5 ML SYRINGE IM ONE (09:04)
[2024-04-24 05:43] VITALS: BP 135/60
== END 2024-04-24 11:20 | disposition home or self-care (01) | DRG 65 ==
LOC: PMRU 10:39
PROVIDERS: ADMIT Physical Medicine & Rehabilitation; ATTEND Physical Medicine & Rehabilitation